=== PATIENT | female | born 1945 | race Caucasian/White ===

== ENCOUNTER → 2018-03-03 09:53 | Outpatient (CLI) | payer MEDICARE, SELFPAY ==
--- NOTE | 2018-03-03 | DI.RAD.S_ITS ---
PROCEDURE: XR CHEST 2V INDICATIONS: ASTHMA TECHNIQUE: 2 views of the chest were acquired. COMPARISON: [facility], , CHEST 2 VIEW, 09/14/2017, 10:44. FINDINGS: Surgical changes and devices: Surgical clips upper abdomen. Lungs and pleura: No pleural effusions or pneumothorax. Lungs are clear. Mediastinum: Mediastinal contours are normal. Heart size is normal. Aortic calcifications. Bones and chest wall: No suspicious bony abnormalities. Soft tissues appear unremarkable. IMPRESSION: No acute cardiopulmonary abnormality Dictated by: Ravinder Wright M.D. on 03/03/2018 at 10:45 Approved by: Ravinder Wright M.D. on 03/03/2018 at 10:46
== END ==
PROVIDERS: Family Provider Family Medicine; PCP Family Medicine; Visit Provider Family Medicine
DX: J45.909 Unspecified asthma, uncomplicated (principal)
CPT/HCPCS: 71046

== ENCOUNTER → 2019-03-12 10:07 | Outpatient (CLI) | payer MEDICARE, OTHER, SELFPAY ==
--- NOTE | 2019-03-12 | DI.RAD.S_ITS ---
PROCEDURE: XR LUMBAR SPINE 2-3V INDICATIONS: back pain hip pain TECHNIQUE: 2 views of the lumbar spine were acquired. COMPARISON: [facility], CR, L-SPINE 2-3 VIEWS, 09/15/2015, 10:10. [facility], CR, L-SPINE 2-3 VIEWS, 12/02/2009, 11:20. FINDINGS: Bones: 5 [id number] vertebrae are present. There is normal bony alignment except for mild grade 1 anterolisthesis of L5 on S1 associated with bilateral facet osteoarthritis at L5-S1 that is moderate in severity and mild at L4-L5. No vertebral body compression fractures. No suspicious bony lesions. Soft tissues: Overlying bowel gas pattern is normal. No suspicious soft tissue calcifications. IMPRESSION: The degenerative disc disease and facet osteoarthritis present over the lower lumbosacral spine is equivalent to that seen in August of 2015. A definite source of new pain is not identified. Spinal and foraminal stenosis likely is present at L4-5 and especially L5-S1. Dictated by: Malachi Hair M.D. on 03/12/2019 at 10:57 Approved by: Malachi Hair M.D. on 03/12/2019 at 10:59
--- NOTE | 2019-03-12 | DI.RAD.S_ITS ---
PROCEDURE: XR HIP W PEL IF DONE LT 2V INDICATIONS: back pain l hip pain TECHNIQUE: AP pelvis with lateral view(s) of the left hip(s). COMPARISON: [facility], , HIP 2V LEFT, 09/15/2015, 10:09. [facility], , HIP 2V RIGHT, 11/18/2011, 10:39. FINDINGS: Bones: No fractures or dislocations. There is moderately severe to severe degenerative hip joint osteoarthritis present bilaterally, slightly greater on the left than the right. This has been previously present in late August of 2015. Pelvic ring appears intact. No suspicious bony lesions. Soft tissues: The visualized bowel gas pattern is normal. No suspicious soft tissue calcifications. IMPRESSION: No trauma found. The prominent hip joint osteoarthritis present bilaterally has not appreciably worsened from late August of 2015. Dictated by: Mlaachi Hair M.D. on 03/12/2019 at 11:00 Approved by: Malachi Hair M.D. on 03/12/2019 at 11:01
== END ==
PROVIDERS: Family Provider Family Medicine; PCP Family Medicine; Visit Provider Family Medicine
DX: M54.5 Low back pain (principal); M25.551 Pain in right hip; M51.17 Intervertebral disc disorders with radiculopathy, lumbosacral region; M47.27 Other spondylosis with radiculopathy, lumbosacral region; M16.0 Bilateral primary osteoarthritis of hip
CPT/HCPCS: 72100; 73502

== ENCOUNTER 2019-07-11 12:58 | Observation (INO) | payer MEDICARE, OTHER, SELFPAY ==
[2019-07-11] VITALS (8 sets, daily range): BP systolic 152–186; BP diastolic 76–94; PULSE 80–100; RESP 16–26; TEMP 36.6–37; O2SAT 98–100; BMI 24.8
--- NOTE | 2019-07-11 13:19 | DI.RAD.S_ITS ---
PROCEDURE: XR CHEST 2V INDICATIONS: chest pain, dyspnea TECHNIQUE: 2 views of the chest were acquired. COMPARISON: [facility], CR, XR CHEST 2V, 03/03/2018, 10:00. FINDINGS: Surgical changes and devices: Surgical clips are noted in epigastric region.. Lungs and pleura: Lungs are clear. No pleural effusions or pneumothorax. Mediastinum: Mediastinal contours are normal. Heart size is mildly enlarged. Bones and chest wall: No suspicious bony abnormalities. Soft tissues appear unremarkable. IMPRESSION: No acute cardiopulmonary pathology. Dictated by: Zeyad Garcia M.D. on 07/11/2019 at 14:01 Approved by: Zeyad Garcia M.D. on 07/11/2019 at 14:04
[2019-07-11 13:42] LABS: Add Manual Diff / Slide Review NO; Basophils Absolute Auto 100 /uL (0-100); Basophils Percent Auto 1.1 % (0-2); Eosinophils Absolute Auto 100 /uL (0-450); Eosinophils Percent Auto 0.6 % (2-4); Hematocrit 41.4 % (36-46); Hemoglobin 14.3 g/dL (12.0-16.0); Lymphocytes Absolute Auto 3600 /uL (1100-4500); Lymphocytes Percent Auto 36.5 % (25-40); Mean Corpuscular HGB Conc 34.5 % (30-36); Mean Corpuscular Volume 98.7 fL (80-100); Monocytes Absolute Auto 900 /uL (0-900); Monocytes Percent Auto 8.7 % (3-14); Neutrophils Absolute Auto 5300 /uL (1500-7000); Neutrophils Percent Auto 53.1 % (50-75); Platelet Count 290 X10^3/uL (150-400); Red Cell Distribution Width 12.7 % (11.6-14.8); White Blood Cell Count 9.9 X10^3/uL (4.5-11.0)
[2019-07-11 13:51] LABS: PTT Partial Thromboplastin Tim 34 SECONDS (26.4-36.2)
[2019-07-11 13:52] LABS: D Dimer 315 ng/mL (<230)
[2019-07-11 13:53] LABS: Alanine Aminotransferase 23 IU/L (9-52); Albumin 4.2 g/dL (3.5-5.0); Albumin Globulin Ratio 1.5 (1.0-2.8); Alkaline Phosphatase 55 U/L (38-126); Aspartate Aminotransferase 21 IU/L (14-36); BUN Creatinine Ratio 23.3 (6-22); Bilirubin Total 0.6 mg/dL (0.2-1.3); Blood Urea Nitrogen 14 mg/dL (7-17); Calcium 9.5 mg/dL (8.4-10.2); Carbon Dioxide 22 mmol/L (22-32); Chloride 108 mmol/L (98-107); Creatine Kinase 44 U/L (30-135); Estimated Glomerular Filt Rate > 60.0 mL/min (>60); Globulin 2.8 g/dL (1.7-4.1); Glucose 122 mg/dL (80-110); HEMOLYSIS < 15 (0-50); Lipase 34 U/L (23-300); Potassium 3.6 mmol/L (3.4-5.1); Sodium 141 mmol/L (137-145)
[2019-07-11 14:01] LABS: B Type Natriuretic Peptide < 100 (<100)
[2019-07-11 14:05] LABS: Troponin I < 0.012 ng/mL (0.01-0.034)
[2019-07-11] MEDS: ALBUTEROL/IPRATROPIUM 3 ML AMPUL INH (14:49)
--- NOTE | 2019-07-11 15:08 | ED.CHESTPAIN ---
HPI - Chest Pain <SUMANTH Howell - Last Filed: 07/12/19 00:37> General Chief Complaint: Chest Pain Stated Complaint: Chest Pain Time Seen by Provider: 07/11/19 12:59 Source: patient and EMS Mode of arrival: EMS Limitations: no limitations History of Present Illness HPI narrative: This is a 74-year-old female, nonsmoker, presents to ED with EMS from patient's PCP, Dr. Coats's office. Patient has been having exertion or short of breath for a month or so and this morning when she woke up she had midsternal chest pressure which lasted for 15 minutes and rated 5/10 at that time. She has history of insulin-dependent diabetes, hyperlipidemia, hypertension and he hiatal hernia. Patient's mother had cardiac stent at age in 60s. Patient is waiting to be evaluated by boat driver for ongoing short of breath and asthma diagnosed since summer. Patient denies on hormone replacement, long travel, history of blood clots, calf pain or swelling. Patient reports discomfort from her he hiatal hernia felt different from today's chest discomfort. EKG was taken at Dr. Coats's office and EKG changes was noticed by PCP. Patient was referred to ED for further evaluation. Upon patient's arrival, patient reports chest pain had resolved. Patient reports she has been able to walking a short distance due to increasing short of breath recently. She is not currently on blood thinner. She is unable to tolerate albuterol due to cough per allergy list. Related Data Home Medications Medication Instructions Recorded Confirmed Novolin N NPH U-100 Insulin 0 unit SQ BID #0 07/21/17 07/11/19 Jamia Original 1 tab PO PRN PRN 07/11/19 07/11/19 Carmelo Plus Extra Strength 500 mg PO PRN PRN 07/11/19 07/11/19 Biocitrate Potassium 1 dose PO DAILY 07/11/19 07/11/19 Blood Sugar Balance 1 dose PO DIRECTED 07/11/19 07/11/19 Coricidin HBP Cold and Flu 1 tab PO DIRECTED 07/11/19 07/11/19 Excedrin Migraine 1 tab PO PRN PRN 07/11/19 07/11/19 Hyaluronic Acid (chond-collgn) 1 cap PO BID 07/11/19 07/11/19 Lutein Plus Bilberry 2 cap PO DAILY 07/11/19 07/11/19 [place]'s wort 150 mg PO PRN PRN 07/11/19 07/11/19 Tart Peterson Advanced 1 tab PO PRN PRN 07/11/19 07/11/19 acetaminophen 500 mg PO DAILY PRN 07/11/19 07/11/19 acetaminophen [Tylenol 8 Hour] 650 mg PO DIRECTED 07/11/19 07/11/19 alpha lipoic acid 400 mg PO DAILY 07/11/19 07/11/19 black cohosh 80 mg PO DAILY 07/11/19 07/11/19 cholecalciferol (vitamin D3) 2,000 unit PO DAILY 07/11/19 07/11/19 [Vitamin D3] clotrimazole 1 applic TOPICAL BID 07/11/19 07/11/19 diphenhydramine HCl [Benadryl] 25 mg PO PRN PRN 07/11/19 07/11/19 fexofenadine 180 mg PO DAILY PRN 07/11/19 07/11/19 fluticasone propionate 1 spray INTRANASAL DAILY PRN 07/11/19 07/11/19 garlic 1,000 mg PO DAILY 07/11/19 07/11/19 priti (Zingiber officinalis) 550 mg PO DAILY 07/11/19 07/11/19 hydrocodone-acetaminophen 1 tab PO Q4-6H PRN 07/11/19 07/11/19 magnesium oxide 400 mg PO DAILY 07/11/19 07/11/19 multivitamin with minerals 1 tab PO BID 07/11/19 07/11/19 [Hair,Skin and Nails] Allergies Allergy/AdvReac Type Severity Reaction Status Date / Time Sulfa (Sulfonamide Allergy Intermediate Rash Verified 07/11/19 14:37 Antibiotics) tamsulosin Allergy Intermediate Swelling Verified 07/11/19 14:37 of the Eye cetirizine [From ZYRTEC] Allergy Unknown Verified 07/11/19 13:09 Estrogens [ESTROGENS] Allergy Unknown Verified 07/11/19 13:09 ezetimibe [From ZETIA] Allergy Unknown Verified 07/11/19 13:09 Progestins [PROGESTINS] Allergy Unknown Verified 07/11/19 13:09 ranitidine [From ZANTAC] Allergy Unknown Verified 07/11/19 13:09 rosiglitazone [From AVANDIA] Allergy Unknown Verified 07/11/19 13:09 simvastatin [From ZOCOR] Allergy Unknown Verified 07/11/19 13:09 albuterol AdvReac Intermediate Anxiety Verified 07/11/19 14:37 meloxicam [From Mobic] AdvReac Intermediate Dizziness Verified 07/11/19 14:37 TRIPLIPIX Allergy Unknown Uncoded 07/11/19 13:09 Review of Systems <SUMANTH Howell - Last Filed: 07/12/19 00:37> Review of Systems Narrative: General: Denies fever, chills, fatigue, malaise, sweats. HEENT: Denies sinus pain, ear pain, sore throat, difficulty swallowing, dizziness. Respiratory: See HPI Cardiovascular: See HPI Gastrointestinal: Denies nausea, vomiting, abdominal pain, diarrhea, constipation, melena. : Denies dysuria, frequency, incontinence, hematuria, urinary retention. Musculoskeletal: Denies weakness, joint pain or bony pain. Skin: Denies rash, skin lesions, or other. Neurologic: Denies weakness, headache, numbness, change in speech, confusion, seizures, incoordination. Psychiatric: No concerning psychosocial issues. 12-point review of systems is negative except for those stated above. Patient History <SUMANTH Howell - Last Filed: 07/12/19 00:37> Medical History (Updated 07/12/19 @ 08:53 by SUMANTH Barry) Allergic rhinitis (Chronic) Anxiety and depression (Chronic) Essential hypertension (Chronic) Gastric ulcer (Chronic) Hiatal hernia (Acute) Hyperlipidemia (Acute) IBS (irritable bowel syndrome) (Chronic) Insulin dependent diabetes mellitus (Chronic) Peripheral vascular disease (Chronic) Sciatica (Chronic) Surgical History History of carpal tunnel surgery (Acute) S/P colonoscopic polypectomy (Acute) Family History Mother Diabetes mellitus Myocardial infarct Renal failure Father Diabetes mellitus Parkinson disease Social History (Updated 07/11/19 @ 16:10 by SUMANTH Howell) household members: spouse Smoking Status: Never smoker alcohol intake: never alcohol intake frequency: 0-2 drinks per day Substance Use Type: does not use Exam <Carlos SUMANTH Elizabeth - Last Filed: 07/12/19 00:37> Narrative Exam Narrative: GEN: Alert, oriented x 3, well appearing and nourished, and in no acute distress. Head: Normal cephalic, atraumatic. No scalp or temporal tenderness, palpable mass or rash. EYES: Pupils are equal, round, and reactive to light and accommodation. Extraocular muscles are intact bilaterally. Subconjunctival hemorrhage R lateral eye, No exudate and sclera non-icteric. ENT: Bilateral auditory canals and tympanic membranes clear. Hearing grossly intact. Nose without bleeding, purulent discharge or deviation. Facial sinuses nontender to palpate. Mucous membrane moist, no mucosal lesion. Throat without erythema, tonsillar hypertrophy or exudate. Uvula in midline, airway patent. Neck: Trachea in midline. No JVD, non-tender without lymphadenopathy. No masses or thyroid megaly. Supple, non-tender and no meningeal signs. CARDIAC: Normal regular rate and rhythm without murmurs, gallops, or rubs. No chest wall tenderness. No peripheral edema, cyanosis or pallor. Capillary refill is less than 2 seconds. RESPIRATORY: Lungs are clear but expiratory breath decreased to auscultate bilaterally. No cough, wheezes, rales, or rhonchi. No stridor, respiratory distress, increase work of breathing, or accessary muscle used. Able to speak sentences without difficulty. ABD: Abdomen soft, nontender and non-distended. No guarding or rebound tenderness to palpate. Bowel sounds are normal in all 4 quadrants. There is no palpable masses or organomegaly. EXT: Full painless ROM of all extremities with no loss of sensation, strength, effusion or edema. SKIN: Warm, dry, normal color for patient. No erythema, lesions or rash over visible areas. BACK: Nontender without deformity or crepitance. No flank tenderness. NEUROLOGICAL: Alert and oriented to place, time and person. Sensation and motor function intact bilaterally. No facial droops, dysphasia. PSYCHIATRIC: Good judgement and reason, without hallucinations, abnormal affect or abnormal behaviors during the examination. Initial Vital Signs Initial Vital Signs: Vital Signs Temperature 98 F 07/11/19 12:55 Pulse Rate 81 07/11/19 12:55 Respiratory Rate 26 H 07/11/19 12:55 Blood Pressure 152/76 H 07/11/19 12:55 Pulse Oximetry 100 07/11/19 12:55 <Alex Perez DO - Last Filed: 07/14/19 18:21> Initial Vital Signs Initial Vital Signs: Vital Signs Temperature 98 F 07/11/19 12:55 Pulse Rate 81 07/11/19 12:55 Respiratory Rate 26 H 07/11/19 12:55 Blood Pressure 152/76 H 07/11/19 12:55 Pulse Oximetry 100 07/11/19 12:55 Scores <Carlos MullerSUMANTH jeffrey - Last Filed: 07/12/19 00:37> GCS [place] coma scale eye opening: Spontaneous Silvia coma scale verbal response: Orientated [place] coma scale motor response: Obey commands [place] coma scale total score: 15 HEART Score Heart Score history: Slightly Suspicious Heart Score EKG: Non-Specific repolarization disturbance Heart Score Age: > or = 65 years old Heart Score risk factors: > 3 risk factors or hx of atherosclerotic disease Heart Score troponin: < or = to normal limit Heart Score Total: 5 Course <Carlos AroraangSiriSUMANTH Alexis - Last Filed: 07/12/19 00:37> Orders Ordered: Discontinued Medications Acetaminophen (Tylenol) 650 mg PO Q6HR PRN PRN Reason: Headache Albuterol/Ipratropium (Duoneb) 3 ml INH NOW ONE Stop: 07/11/19 13:20 Last Admin: 07/11/19 14:49 Dose: 3 ml Documented by: SONNY Albuterol/Ipratropium (Duoneb) 3 ml INH RTQ6HR PRN PRN Reason: Shortness Of Breath Aspirin (Aspirin Chew) 324 mg PO NOW ONE Stop: 07/11/19 16:07 Last Admin: 07/11/19 16:37 Dose: 324 mg Documented by: LAITH Aspirin (Aspirin Chew) 81 mg PO DAILY KITA Last Admin: 07/12/19 09:36 Dose: 81 mg Documented by: PAULY Nitroglycerin (Nitrostat) 0.4 mg SL [id number] PRN PRN Reason: Chest Pain Last Admin: 07/12/19 01:36 Dose: 0.4 mg Documented by: YORDYTLIN Ondansetron HCl (Zofran) 4 mg IV Q8HR PRN PRN Reason: Nausea And Vomiting Pantoprazole Sodium (Protonix) 40 mg IV NOW ONE Stop: 07/12/19 01:08 Last Admin: 07/12/19 01:35 Dose: 40 mg Documented by: BRYCE Reevaluation(s) Reevaluation #1: recurring 09/28 chest pressure Time: 14:40 Reevaluation #2: Difficulty tolerating neb tx Time: 15:09 Consultations Consultation #1: Dr. Jackson-umang, stress test Time: 15:15 Vital Signs Vital signs: Vital Signs - 8 hr 07/11/19 12:55 07/11/19 13:30 07/11/19 14:51 Temperature 98 F Pulse Rate 81 80 85 Respiratory Rate 26 H 23 16 Blood Pressure 152/76 H Blood Pressure [Right Arm] 152/76 H Pulse Oximetry 100 100 100 <Alex Perez, - Last Filed: 07/14/19 18:21> Orders Ordered: Discontinued Medications Acetaminophen (Tylenol) 650 mg PO Q6HR PRN PRN Reason: Headache Albuterol/Ipratropium (Duoneb) 3 ml INH NOW ONE Stop: 07/11/19 13:20 Last Admin: 07/11/19 14:49 Dose: 3 ml Documented by: SONNY Albuterol/Ipratropium (Duoneb) 3 ml INH RTQ6HR PRN PRN Reason: Shortness Of Breath Aspirin (Aspirin Chew) 324 mg PO NOW ONE Stop: 07/11/19 16:07 Last Admin: 07/11/19 16:37 Dose: 324 mg Documented by: LAITH Aspirin (Aspirin Chew) 81 mg PO DAILY KITA Last Admin: 07/12/19 09:36 Dose: 81 mg Documented by: PAULY Nitroglycerin (Nitrostat) 0.4 mg SL [id number] PRN PRN Reason: Chest Pain Last Admin: 07/12/19 01:36 Dose: 0.4 mg Documented by: BRYCE Ondansetron HCl (Zofran) 4 mg IV Q8HR PRN PRN Reason: Nausea And Vomiting Pantoprazole Sodium (Protonix) 40 mg IV NOW ONE Stop: 07/12/19 01:08 Last Admin: 07/12/19 01:35 Dose: 40 mg Documented by: RCATLIN Vital Signs Vital signs: Vital Signs - 8 hr 07/11/19 12:55 07/11/19 13:30 07/11/19 14:51 Temperature 98 F Pulse Rate 81 80 85 Respiratory Rate 26 H 23 16 Blood Pressure 152/76 H Blood Pressure [Right Arm] 152/76 H Pulse Oximetry 100 100 100 MDM - Chest Pain <Carlos DEEPAK ElizabethP - Last Filed: 07/12/19 00:37> Differential Diagnosis Differential diagnosis: Likely unstable angina pectoris, atypical chest pain and other (Pulmonary late embolism) Medical Records Data Attestation: I reviewed the patient's medical records. Lab Data Attestation: I reviewed the patient's lab results. Result diagrams: 07/11/19 13:35 07/11/19 13:35 Labs: Lab Results 07/11/19 07/11/19 07/11/19 Range/Units 13:35 13:35 13:35 WBC 9.9 (4.5-11.0) X10^3/uL RBC 4.20 (4.0-5.2) X10^6/uL Hgb 14.3 (12.0-16.0) g/dL Hct 41.4 (36-46) % MCV 98.7 (80-100) fL MCH 34.0 (26-34) PG MCHC 34.5 (30-36) % RDW 12.7 (11.6-14.8) % Plt Count 290 (150-400) X10^3/uL Neut % (Auto) 53.1 (50-75) % Lymph % (Auto) 36.5 (25-40) % [place] % (Auto) 8.7 (3-14) % Eos % (Auto) 0.6 L (2-4) % Baso % (Auto) 1.1 (0-2) % Neut # (Auto) 5300 (8148-2331) /uL Lymph # (Auto) 3600 (4755-4322) /uL [place] # (Auto) 900 (0-900) /uL Eos # (Auto) 100 (0-450) /uL Baso # (Auto) 100 (0-100) /uL PT 11.0 (10.1-12.7) SECONDS INR 1.0 (0.9-1.3) APTT 34 (26.4-36.2) SECONDS D-Dimer 315 H (<230) ng/mL Sodium 141 (137-145) mmol/L Potassium 3.6 (3.4-5.1) mmol/L Chloride 108 H (98-107) mmol/L Carbon Dioxide 22 (22-32) mmol/L BUN 14 (7-17) mg/dL Creatinine 0.60 (0.52-1.04) mg/dL Estimated GFR > 60.0 (>60) mL/min BUN/Creatinine Ratio 23.3 H (6-22) Glucose 122 H (80-110) mg/dL Hemoglobin A1c (4.0-6.0) % Calcium 9.5 (8.4-10.2) mg/dL Magnesium (1.6-2.3) mg/dL Total Bilirubin 0.6 (0.2-1.3) mg/dL AST 21 (14-36) IU/L ALT 23 (9-52) IU/L Alkaline Phosphatase 55 (38-126) U/L Total Creatine Kinase 44 (30-135) U/L CK-MB (CK-2) TNP CK-MB (CK-2) Rel Index TNP Troponin I < 0.012 (0.01-0.034) ng/mL B-Natriuretic Peptide < 100 (<100) Total Protein 7.0 (6.3-8.2) g/dL Albumin 4.2 (3.5-5.0) g/dL Globulin 2.8 (1.7-4.1) g/dL Albumin/Globulin Ratio 1.5 (1.0-2.8) Lipase 34 (23-300) U/L TSH (0.47-4.68) uIU/mL 07/11/19 07/11/19 07/11/19 Range/Units 13:35 13:35 13:35 WBC (4.5-11.0) X10^3/uL RBC (4.0-5.2) X10^6/uL Hgb (12.0-16.0) g/dL Hct (36-46) % MCV (80-100) fL MCH (26-34) PG MCHC (30-36) % RDW (11.6-14.8) % Plt Count (150-400) X10^3/uL Neut % (Auto) (50-75) % Lymph % (Auto) (25-40) % [place] % (Auto) (3-14) % Eos % (Auto) (2-4) % Baso % (Auto) (0-2) % Neut # (Auto) (6101-4258) /uL Lymph # (Auto) (6731-5230) /uL [place] # (Auto) (0-900) /uL Eos # (Auto) (0-450) /uL Baso # (Auto) (0-100) /uL PT (10.1-12.7) SECONDS INR (0.9-1.3) APTT (26.4-36.2) SECONDS D-Dimer (<230) ng/mL Sodium (137-145) mmol/L Potassium (3.4-5.1) mmol/L Chloride (98-107) mmol/L Carbon Dioxide (22-32) mmol/L BUN (7-17) mg/dL Creatinine (0.52-1.04) mg/dL Estimated GFR (>60) mL/min BUN/Creatinine Ratio (6-22) Glucose (80-110) mg/dL Hemoglobin A1c 7.6 H (4.0-6.0) % Calcium (8.4-10.2) mg/dL Magnesium 1.7 (1.6-2.3) mg/dL Total Bilirubin (0.2-1.3) mg/dL AST (14-36) IU/L ALT (9-52) IU/L Alkaline Phosphatase (38-126) U/L Total Creatine Kinase (30-135) U/L CK-MB (CK-2) CK-MB (CK-2) Rel Index Troponin I (0.01-0.034) ng/mL B-Natriuretic Peptide (<100) Total Protein (6.3-8.2) g/dL Albumin (3.5-5.0) g/dL Globulin (1.7-4.1) g/dL Albumin/Globulin Ratio (1.0-2.8) Lipase (23-300) U/L TSH 1.23 (0.47-4.68) uIU/mL Imaging Data Chest x-ray: Radiologist's impression: [address] [address] XRay Report Signed Patient: Brittnee Villa [facility]#: [id number] : 7Acct:[id number] Age/Sex: 74 / FDate of Service: 07/11/19 Loc: ED Accession Number: [id number] Procedure: XR chest 2V Ordering Provider: Carlos Elizabeth PROCEDURE: XR CHEST 2V INDICATIONS: chest pain, dyspnea TECHNIQUE: 2 views of the chest were acquired. COMPARISON: [facility], , XR CHEST 2V, 03/03/2018, 10:00. FINDINGS: Surgical changes and devices: Surgical clips are noted in epigastric region.. Lungs and pleura: Lungs are clear. No pleural effusions or pneumothorax. Mediastinum: Mediastinal contours are normal. Heart size is mildly enlarged. Bones and chest wall: No suspicious bony abnormalities. Soft tissues appear unremarkable. IMPRESSION: No acute cardiopulmonary pathology. Dictated by: Zeyad Garcia M.D. on 07/11/2019 at 14:01 Approved by: Zeyad Garcia M.D. on 07/11/2019 at 14:04 ECG Data Attestation: I personally reviewed and interpreted this ECG as follows: Prior ECG tracings: available for review Interpretation: SR at 78 Nonspecific T wave abnormalty, No changes from previous EKG L axis. No ST elevation or depression MDM Narrative Medical decision making narrative: This is a 74-year-old female presents to ED from her primary care physician's, Dr. Coats's office with chest pressure and exertional short of breath evaluation. Patient had 15 minutes duration of midsternal pressure when she woke up this morning and has been having exertional short of breath for last 4 weeks or so. Patient is in process of getting an evaluation by boat driver for this. Patient has a history of insulin dependent diabetes, hyperlipidemia not on statin. Patient was diagnosed with asthma this past summer but is not currently on albuterol nebulizer or inhaler due to patient's sensitive reaction to the medication. According to Dr. Coats he noticed changes in EKG. EKG in ED showed sinus rhythm with nonspecific T-wave abnormalty which was no change from the previous EKG. Chest x-ray was without acute findings. Cardiac enzymes were not normal. Given patient's history, D-dimer was obtained and showed 315 today (<230). Given patient's age, the D-dimer was not considered as abnormal/elevated and no further imaging test was done this time. BNP was <100. The physics professor, Dr. Jackson was consulted over the phone. He suggested echocardiogram and stress test as an inpatient given patient's history of diabetes, hyperlipidemia, mother's cardiac history in 60's. Attempted nebulizer treatment with DuoNeb but patient was not able to tolerated due to feeling anxious. Dr. Seals was consulted and he kindly accepted patient's care as an observation admission with plan of echocardiogram and stress test with trending troponin test. Findings and treatment plan were discussed with the patient and verbalized understanding and agrees with treatment plan. <Alex Perez, DO - Last Filed: 07/14/19 18:21> Lab Data Labs: Lab Results 07/11/19 07/11/19 07/11/19 Range/Units 13:35 13:35 13:35 WBC 9.9 (4.5-11.0) X10^3/uL RBC 4.20 (4.0-5.2) X10^6/uL Hgb 14.3 (12.0-16.0) g/dL Hct 41.4 (36-46) % MCV 98.7 (80-100) fL MCH 34.0 (26-34) PG MCHC 34.5 (30-36) % RDW 12.7 (11.6-14.8) % Plt Count 290 (150-400) X10^3/uL Neut % (Auto) 53.1 (50-75) % Lymph % (Auto) 36.5 (25-40) % [place] % (Auto) 8.7 (3-14) % Eos % (Auto) 0.6 L (2-4) % Baso % (Auto) 1.1 (0-2) % Neut # (Auto) 5300 (2605-6692) /uL Lymph # (Auto) 3600 (2907-8868) /uL [place] # (Auto) 900 (0-900) /uL Eos # (Auto) 100 (0-450) /uL Baso # (Auto) 100 (0-100) /uL PT 11.0 (10.1-12.7) SECONDS INR 1.0 (0.9-1.3) APTT 34 (26.4-36.2) SECONDS D-Dimer 315 H (<230) ng/mL Sodium 141 (137-145) mmol/L Potassium 3.6 (3.4-5.1) mmol/L Chloride 108 H (98-107) mmol/L Carbon Dioxide 22 (22-32) mmol/L BUN 14 (7-17) mg/dL Creatinine 0.60 (0.52-1.04) mg/dL Estimated GFR > 60.0 (>60) mL/min BUN/Creatinine Ratio 23.3 H (6-22) Glucose 122 H (80-110) mg/dL Hemoglobin A1c (4.0-6.0) % Calcium 9.5 (8.4-10.2) mg/dL Magnesium (1.6-2.3) mg/dL Total Bilirubin 0.6 (0.2-1.3) mg/dL AST 21 (14-36) IU/L ALT 23 (9-52) IU/L Alkaline Phosphatase 55 (38-126) U/L Total Creatine Kinase 44 (30-135) U/L CK-MB (CK-2) TNP CK-MB (CK-2) Rel Index TNP Troponin I < 0.012 (0.01-0.034) ng/mL B-Natriuretic Peptide < 100 (<100) Total Protein 7.0 (6.3-8.2) g/dL Albumin 4.2 (3.5-5.0) g/dL Globulin 2.8 (1.7-4.1) g/dL Albumin/Globulin Ratio 1.5 (1.0-2.8) Lipase 34 (23-300) U/L TSH (0.47-4.68) uIU/mL 07/11/19 07/11/19 07/11/19 Range/Units 13:35 13:35 13:35 WBC (4.5-11.0) X10^3/uL RBC (4.0-5.2) X10^6/uL Hgb (12.0-16.0) g/dL Hct (36-46) % MCV (80-100) fL MCH (26-34) PG MCHC (30-36) % RDW (11.6-14.8) % Plt Count (150-400) X10^3/uL Neut % (Auto) (50-75) % Lymph % (Auto) (25-40) % [place] % (Auto) (3-14) % Eos % (Auto) (2-4) % Baso % (Auto) (0-2) % Neut # (Auto) (5202-5929) /uL Lymph # (Auto) (5517-4039) /uL [place] # (Auto) (0-900) /uL Eos # (Auto) (0-450) /uL Baso # (Auto) (0-100) /uL PT (10.1-12.7) SECONDS INR (0.9-1.3) APTT (26.4-36.2) SECONDS D-Dimer (<230) ng/mL Sodium (137-145) mmol/L Potassium (3.4-5.1) mmol/L Chloride (98-107) mmol/L Carbon Dioxide (22-32) mmol/L BUN (7-17) mg/dL Creatinine (0.52-1.04) mg/dL Estimated GFR (>60) mL/min BUN/Creatinine Ratio (6-22) Glucose (80-110) mg/dL Hemoglobin A1c 7.6 H (4.0-6.0) % Calcium (8.4-10.2) mg/dL Magnesium 1.7 (1.6-2.3) mg/dL Total Bilirubin (0.2-1.3) mg/dL AST (14-36) IU/L ALT (9-52) IU/L Alkaline Phosphatase (38-126) U/L Total Creatine Kinase (30-135) U/L CK-MB (CK-2) CK-MB (CK-2) Rel Index Troponin I (0.01-0.034) ng/mL B-Natriuretic Peptide (<100) Total Protein (6.3-8.2) g/dL Albumin (3.5-5.0) g/dL Globulin (1.7-4.1) g/dL Albumin/Globulin Ratio (1.0-2.8) Lipase (23-300) U/L TSH 1.23 (0.47-4.68) uIU/mL Discharge Plan Departure Patient Disposition: Admitted as Observation Clinical Impression: Breath, shortness Chest pain Qualifiers: Chest pain type: unspecified Qualified Code(s): R07.9 - Chest pain, unspecified Discharge Date/Time: 07/11/19 17:06 Referrals: Lion Coats MD [Primary Care Provider] - Admit Date/Time: 07/11/19 15:44 Admit Provider: [facility]
[2019-07-11] MEDS: ASPIRIN 81 MG CHEW TAB 324 MG PO (16:37)
--- NOTE | 2019-07-11 20:48 | P.HP_ITS ---
History of Present Illness History of Present Illness Date Patient Seen: 07/11/19 Time Patient Seen: 20:48 Chief complaint: Chest Pain Narrative: The patient is a 74-year-old female With PMH of HTN, IDDM, HDL, PVD, hiatal hernia, IBS-C, chronic pain (OA, mid and upper back pain, sciatica), allergic rhinitis, and anxiety/depression. Patient presented to the ED on 07/11/2019 directly from her PCPs office (Dr. Coats) for further evaluation of chest pain. Patient went to see her PCP out of concern for 1 month long history shortness of breath. Shortness of breath is present with exertion only. Patient states she can only take 2-3 steps before she has to rest. Associated symptoms include mid-sternal chest pressure. Chest pressure resolves with rest. There is no radiation to the back, extremities, neck or jaw. Chest discomfort is not associated with headache, diaphoresis, dizziness, lightheadedness, syncopal events, hemoptysis, abdominal pain, nausea or vomiting. Patient denies wheezing. Denies orthopnea, peripheral edema, PND, and claudication. Patient states that she was recently diagnosed with asthma, however denies having any pulmonary function tests or imaging done. Home medication regimen does not include bronchodilators. Reports presence of allergic rhinitis. Overall patient is allergic to number of medications. There is also concern for polypharmacy. She is taking a number of OTC medications and supplements. She does admit that she does not discussed these with her PCP. Reports prior history of GI ulcers, GERD, and polypectomy. No prior history of a GI bleed. Denies history of hypertension. She does have dyslipidemia, history shows intolerance to Zetia and Zocor. Patient unable to recall reaction. Reports underlying anxiety and depression, however admits those to be controlled at this time. Denies prior history of a stress test. She has had an echocardiogram number of years ago, however unable to recall associated findings. Denies current or prior history of tobacco use. Reports baseline gait instability and trouble with balance. Reports baseline left lower extremity weakness associated with injury over 20 years ago. Denies prior history of an NM, cerebrovascular events, and thrombosis. ED Presentation & Work-Up Labs, 07/11 @ 1335 WBC 9.9 HGB 14.3 HCT 41.4 PLT 290 PT 11 INR 1.0 aPTT 34 D-Dimer 315 Troponin < 0.012 BNP < 100 Na 141 K 3.6 Cl 108 Ca 9.5 Alb 4.2 CO2 22 Cr 0.6 BUN 14 Cr 0.6 GFR > 60 T.Bili 0.6 AST 21 ALT 23 ALK PHOS 55 CK (total) 44 Lipase 34 EKG, 07/11/19 @ 1310. SR (v-rate 78). Minimal voltage criteria for LVH, consider normal variant. Nonspecific T-wave abnormality. QTc 414. CXR, 07/11/19. No acute cardiopulmonary pathology. Lungs are clear. No pleural effusion or pneumothorax. Mediastinal contours are normal. Heart size is mildly enlarged. No suspicious bony abnormalities. Soft tissues appear unremarkable. Surgical clips noted in epigastric region. Patient History Medical History (Updated 07/12/19 @ 08:53 by SUMANTH Barry) Allergic rhinitis (Chronic) Anxiety and depression (Chronic) Essential hypertension (Chronic) Gastric ulcer (Chronic) Hiatal hernia (Acute) Hyperlipidemia (Acute) IBS (irritable bowel syndrome) (Chronic) Insulin dependent diabetes mellitus (Chronic) Peripheral vascular disease (Chronic) Sciatica (Chronic) Surgical History History of carpal tunnel surgery (Acute) S/P colonoscopic polypectomy (Acute) Family & Social History Family History Mother Diabetes mellitus Myocardial infarct Renal failure Father Diabetes mellitus Parkinson disease Social History: household members spouse Prior Living Arrangements House Safety & Behavioral: Feels Safe in Current Yes Environment Been Physically Hurt or No Threatened By a Person Suicidal Ideation Description None Suicide Plan Description No Plan Tobacco & Substance use: Smoking Status Never smoker alcohol intake never alcohol intake frequency 0-2 drinks per day Substance Use Type does not use Meds Home Medications and Allergies Home Medications Medication Instructions Recorded Confirmed Type Novolin N NPH U-100 Insulin 0 unit SQ BID #0 07/21/17 07/11/19 History Carmelo Plus Extra Strength 500 mg PO PRN PRN 07/11/19 07/11/19 History Biocitrate Potassium 1 dose PO DAILY 07/11/19 07/11/19 History Blood Sugar Balance 1 dose PO DIRECTED 07/11/19 07/11/19 History Lutein Plus Bilberry 2 cap PO DAILY 07/11/19 07/11/19 History Camargo's wort 150 mg PO PRN PRN 07/11/19 07/11/19 History Tart Peterson Advanced 1 tab PO PRN PRN 07/11/19 07/11/19 History acetaminophen 500 mg PO DAILY PRN 07/11/19 07/11/19 History acetaminophen [Tylenol 8 Hour] 650 mg PO DIRECTED 07/11/19 07/11/19 History alpha lipoic acid 400 mg PO DAILY 07/11/19 07/11/19 History rnjluuw-gbvrcfnjpcvqo-rjkgcrpj 1 tab PO PRN PRN 07/11/19 07/11/19 History [Excedrin Migraine] aspirin-sod bicarb-citric acid 1 tab PO PRN PRN 07/11/19 07/11/19 History [Karli-Jann Original] black cohosh 80 mg PO DAILY 07/11/19 07/11/19 History chlorpheniramine-acetaminophen 1 tab PO DIRECTED 07/11/19 07/11/19 History [Coricidin HBP Cold and Flu] cholecalciferol (vitamin D3) 2,000 unit PO DAILY 07/11/19 07/11/19 History [Vitamin D3] clotrimazole 1 applic TOPICAL BID 07/11/19 07/11/19 History diphenhydramine HCl [Benadryl] 25 mg PO PRN PRN 07/11/19 07/11/19 History fexofenadine 180 mg PO DAILY PRN 07/11/19 07/11/19 History fluticasone propionate 1 spray INTRANASAL DAILY PRN 07/11/19 07/11/19 History garlic 1,000 mg PO DAILY 07/11/19 07/11/19 History priti (Zingiber officinalis) 550 mg PO DAILY 07/11/19 07/11/19 History hyalur ac-chond sul-colg II-AA 1 cap PO BID 07/11/19 07/11/19 History [Hyaluronic Acid (chond-collgn)] hydrocodone-acetaminophen 1 tab PO Q4-6H PRN 07/11/19 07/11/19 History magnesium oxide 400 mg PO DAILY 07/11/19 07/11/19 History multivitamin with minerals 1 tab PO BID 07/11/19 07/11/19 History [Hair,Skin and Nails] Allergies Allergy/AdvReac Type Severity Reaction Status Date / Time Sulfa (Sulfonamide Allergy Intermediate Rash Verified 07/11/19 14:37 Antibiotics) tamsulosin Allergy Intermediate Swelling Verified 07/11/19 14:37 of the Eye cetirizine [From ZYRTEC] Allergy Unknown Verified 07/11/19 13:09 Estrogens [ESTROGENS] Allergy Unknown Verified 07/11/19 13:09 ezetimibe [From ZETIA] Allergy Unknown Verified 07/11/19 13:09 Progestins [PROGESTINS] Allergy Unknown Verified 07/11/19 13:09 ranitidine [From ZANTAC] Allergy Unknown Verified 07/11/19 13:09 rosiglitazone [From AVANDIA] Allergy Unknown Verified 07/11/19 13:09 simvastatin [From ZOCOR] Allergy Unknown Verified 07/11/19 13:09 albuterol AdvReac Intermediate Anxiety Verified 07/11/19 14:37 meloxicam [From Mobic] AdvReac Intermediate Dizziness Verified 07/11/19 14:37 TRIPLIPIX Allergy Unknown Uncoded 07/11/19 13:09 Review of Systems Review of Systems Narrative: All systems reviewed and are unremarkable except as noted in HPI and below Exam Vital Signs (past 8 hours): - 07/11/19 12:55 07/11/19 13:30 07/11/19 14:51 Temperature 98 F Pulse Rate 81 80 85 Respiratory Rate 26 H 23 16 Blood Pressure 152/76 H Blood Pressure [Right Arm] 152/76 H Pulse Oximetry 100 100 100 07/11/19 17:00 07/11/19 17:15 07/11/19 20:30 Temperature 98.6 F 98.2 F Pulse Rate 100 H 92 H 96 H Respiratory Rate 20 18 18 Blood Pressure 174/94 H 170/93 H Blood Pressure [Right Arm] 186/88 H Pulse Oximetry 99 Oxygen Delivery Method Room Air Narrative Exam Narrative: Constitutional: NAD Neurologic: Awake and alert. Oriented to person, place, time, and reason for hospital admission. GCS 15 Mildly forgetful No tremor Head: NC, AT Eyes: Pupils equal, round, and reactive. Sclera of right eye is red. Visual acuity intact. Ears: External ears normal, no otorrhea Nose: External nose normal, no rhinorrhea or epistaxis Throat: MMM, oropharynx w/o exudate Neck: no masses, lymphadenopathy, or JVD Chest / Respiratory: equal chest rise, unlabored respiratory effort at rest, no dyspnea or tachypnea at rest, able to speak in full sentences without difficulty Heart / CV: S1S2, murmur present Abdomen / GI: round, NT, ND, + BS, no organomegaly : no suprapubic tenderness, no CVA Peripheral / Vascular: cool to touch, DP and PT pulses palpable, no edema Musc: full ROM of upper and lower extremities, adequate muscle tone and bulk Left lower extremity slightly weaker than RLE Skin: no ecchymosis or suspicious lesions Objective Labs Result Diagrams: 07/11/19 13:35 07/11/19 13:35 Labs: Laboratory Results - last 24 hr 07/11/19 07/11/19 07/11/19 13:35 13:35 13:35 WBC 9.9 RBC 4.20 Hgb 14.3 Hct 41.4 MCV 98.7 MCH 34.0 MCHC 34.5 RDW 12.7 Plt Count 290 Neut % (Auto) 53.1 Lymph % (Auto) 36.5 [place] % (Auto) 8.7 Eos % (Auto) 0.6 L Baso % (Auto) 1.1 Neut # (Auto) 5300 Lymph # (Auto) 3600 [place] # (Auto) 900 Eos # (Auto) 100 Baso # (Auto) 100 PT 11.0 INR 1.0 APTT 34 D-Dimer 315 H Sodium 141 Potassium 3.6 Chloride 108 H Carbon Dioxide 22 BUN 14 Creatinine 0.60 Estimated GFR > 60.0 BUN/Creatinine Ratio 23.3 H Glucose 122 H Calcium 9.5 Total Bilirubin 0.6 AST 21 ALT 23 Alkaline Phosphatase 55 Total Creatine Kinase 44 CK-MB (CK-2) TNP CK-MB (CK-2) Rel Index TNP Troponin I < 0.012 B-Natriuretic Peptide < 100 Total Protein 7.0 Albumin 4.2 Globulin 2.8 Albumin/Globulin Ratio 1.5 Lipase 34 Assessment & Plan Assessment & Plan narrative: Exertional dyspnea, acute, present on admission, active - continuous pulse ox - echo in am - cta chest stat to r/o pulmonary embolism Chest pain, acute, present on admission, active - tele monitoring - vs q4h - trend troponin - risk stratify (a1c, fasting lipid panel) - additional labs: mg, tsh, and A1C (add-on labs); lipid panel, bmp (am labs) - ASA 324 mg (received in ED); continue ASA 81 mg daily Elevated BP, acute, present on admission, active - per patient, no prior diagnosis of hypertension; denies current or prior use of anti-hypertensive medications - trend BP Elevated D-Dimer (315), present on admission, active - CTA chest to r/o PE Hyperlipidemia, chronic condition, present on admission, active - prior h/o intolerance to Zetia and Zocor, reaction is not known - fasting lipid profile in am - consider PCSK9 inhibitor, if lipid lowering agent is needed Chronic pain (osteoarthritis, back pain w/ sciatica), chronic condition, present on admission, active - Tylenol prn Polypharmacy, present on admission, active - Patient would benefit from re-evaluation of her home medication regimen Code status discussed w/ patient, wishes to be full code. Spouse is they surrogate decision maker. VTE prophylaxis w/ SCDs Home medications reviewed and reconciled accordingly Quality VTE Deep Vein Thrombosis/Pulmonary Embolism Present on Admission: No
--- NOTE | 2019-07-11 21:51 | DI.CT.S_ITS ---
PROCEDURE: CT ANGIO CHEST PE PROTOCOL INDICATIONS: exertional dyspnea, chest pain, elev d-dimer TECHNIQUE: After the administration of intravenous contrast, 2 mm thick sections acquired from the pulmonary apices to the posterior costophrenic angles. 3-dimensional maximum intensity projection (MIP) coronal and sagittal reformats were then acquired through the thorax. For radiation dose reduction, the following was used: automated exposure control, adjustment of mA and/or kV according to patient size. COMPARISON: [facility], CT, KIDNEY/ URETER/BLADDER, 07/21/2017, 22:53. FINDINGS: Image quality: Excellent. Pulmonary arteries: Pulmonary arteries are normal in size, and demonstrate no intraluminal filling defects to suggest central pulmonary embolism. Lungs and pleura: Noncalcified 5 mm subpleural pulmonary nodule, superior segment of right lower lobe. Noncalcified 4 mm subpleural pulmonary nodule, right middle lobe. Minimal scarring, right upper lobe, image 66/5. Lungs are clear. No pleural effusions or pneumothorax. Central and peripheral airways are patent. Mediastinum: Heart size is normal, without pericardial effusion. Coronary artery atherosclerotic calcifications. No mediastinal or hilar adenopathy. Thoracic aorta is normal in caliber and enhancement. Esophagus is normal in caliber, without hiatal hernia. Bones and chest wall: No suspicious bony lesions. Ribs and thoracic spine appear intact throughout. Thyroid gland contains a 9 mm peripherally calcified nodule in the right lobe.. No axillary or supraclavicular adenopathy. Abdomen: Hepatic steatosis. Remote cholecystectomy. Left upper pole renal stone. IMPRESSION: 1. No evidence pulmonary emboli. 2. There are 2 noncalcified pulmonary nodules in the right lung, the larger of which measures 5 mm. Please see chart below for followup recommendations. 3. Coronary artery disease. 4. Subcentimeter thyroid nodule. Comment: Final report is concordant with preliminary interpretation provided by [facility]. Fleischner Society criteria for SOLID lung nodule followup. Nodule size (mm)Low-risk patientHigh-risk patient<6 (single or multiple)No routine followup.Optional CT at 12 months. 6-8 (single or multiple)CT at 6-12 months, then optional CT at 18-24 mo.CT at 6-12 months, then CT at 18-24 months. >8 (single)CT at 3 months, PET-CT, or biopsy. Same as for low-risk pts. >8 (multiple)CT at 3-6 months, then optional CT at 18-24 mo.CT at 3-6 months, then CT at 18-24 months. Fleischner Society criteria for SUB-SOLID lung nodule followup. Solitary pure ground-glass nodules<6 mm (ground glass or part solid)No followup needed. 6 mm or larger (ground glass)CT at 6-12 months to confirm persistence, then CT every 2 years until 5 years.6 mm or larger (part solid)CT at 3-6 months to confirm persistence, then annual CT until 5 years if unchanged and solid component remains <6 mm. Multiple sub-solid nodules<6 mmCT at 3-6 months, then CT consider at 2 & 4 years for high risk patients. [address] at 3-6 months. Subsequent management based on most suspicious lesions. Recommendations do not apply to lung cancer screening, patients with immunosuppression, or patients with known primary cancer. Dictated by: Pillo Lewis M.D. on 07/12/2019 at 7:53 Approved by: Pillo Lewis M.D. on 07/12/2019 at 8:02
--- NOTE | 2019-07-11 21:59 | PC.NURSE ---
Addendum entered by Miguelina Lange R.N. 07/11/19 22:27: [address] scan transferred by this RN and DAX Alba, in stable condition. Awake, alert, and pleasant, speaking in full sentences at rest. O2 sat 99% on RA. Original Note: Mercedes shift note: 1715: Patient awake, and alert, speaking in short sentences. SOB noted with exertion, O2 sat 99% on RA. NO c/o chest pain or pressure. 2149: Ambulated patient in room, pulse ox remains 99% on RA at rest and with activity. HR increased from 98 at rest to 120 with activity, dyspneic, and fatigues. Tahira JULIO aware.
[2019-07-11 22:05] LABS: Magnesium 1.7 mg/dL (1.6-2.3)
[2019-07-11 23:11] LABS: Thyroid Stimulating Hormone 1.23 uIU/mL (0.47-4.68)
[2019-07-11 23:26] LABS: Hemoglobin A1C% w Est Avg Glu 7.6 % (4.0-6.0)
[2019-07-12] VITALS (7 sets, daily range): BP systolic 124–172; BP diastolic 81–93; PULSE 93–103; RESP 18–20; TEMP 36.8–36.9; O2SAT 96–100
--- NOTE | 2019-07-12 01:19 | PC.NURSE ---
Addendum entered by Singh Gupta R.N. 07/12/19 04:43: 0300: Pt sleeping; respirations unlabored. Addendum entered by Singh Gupta R.N. 07/12/19 01:43: 0136: Protonix 40mg IV given. Nitro SL 1 tablet given per SUMANTH Osborn. 0140: B/P 140/93, HR 103, RR 18. Original Note: [employer] Note: 0000: Awake, resting in bed. Pt denies chest pain but states she still has a small amount of chest pressure, that is slowly resolving. IV in place in rt wrist. Pt is NPO for stress test later this morning. Pt remains on telemetry. Pt advised to call nurse if she has chest pain or increased pressure in chest. 0100: Pt calling, states she is having chest pain. She has some shortness of breath. RT notified of need for EKG. SUMANTH Osborn notified. Vital signs stable. HOB elevated 45 degrees. B/P 172/83, HR 96, RR 20. O2 sat on room air is 96%. 0105: RT at bedside with EKG in progress. SUMANTH Osborn at bedside. Pt states the pain is like indigestion. 0125: CBG 137.
[2019-07-12] MEDS: PANTOPRAZOLE 40 MG VIAL IV (01:35)
[2019-07-12] MEDS: NITROGLYCERIN 0.4 MG SL TAB SL (01:36)
[2019-07-12 07:44] LABS: Cholesterol 220 mg/dL (140-199); HDL Cholesterol 31 mg/dL (40-60); LDL Cholesterol Calculated 128 mg/dL (<100); Triglycerides 305 mg/dL (35-150)
[2019-07-12 07:54] LABS: Troponin I < 0.012 ng/mL (0.01-0.034)
[2019-07-12] MEDS: ASPIRIN 81 MG CHEW TAB PO (09:36)
--- NOTE | 2019-07-12 10:56 | DI.ECHO.S_ITS ---
[facility] +---------+ : : [address] [place] : : : : [id number] : : : : Phone: [phone] Echocardiogram Report + + :Name: BARAK RAMIREZ Study Date: 07/12/2019 Height: 62 in : :[facility] Weight: 135 lb: : Gender: Female BSA: 1.6 m2 : :: 1945 Age: 74 yrs : :Reason For Study: Dyspnea : : Performed By: Ansley Dunaway : :Referring: JOSÉ LUIS JAIN : + + Interpretation Summary 1) Small left ventricular cavity with hyperdynamic systolic function (EF 75- 80%). 2) Peak gradient across the LVOT is mildly elevated at 35mmHg with valsalva. Suspected etiology is hyperdynamic state rather than true LVOT obstruction. 3) Normal right ventricular size and function. 4) No significant valvular abnormalities. 5) Compared to the Echo done 08/21/2014, no significant change. Procedure: A two-dimensional transthoracic echocardiogram with color flow and Doppler was performed. The study quality was technically adequate. Comparison is made with the echocardiogram of 08-21-14. The heart rate ranged between 96-102 bpm during the study. Left Ventricle: There is normal left ventricular wall thickness. Proximal septal thickening is noted. The left ventricular cavity is small. The ejection fraction is estimated to be 75-80%. The left ventricle is hyperdynamic. There are no focal wall motion abnormalities. Diastolic function could not be accurately assessed due to unobtainable data. Right Ventricle: The right ventricle is grossly normal size. The right ventricular systolic function is normal. Atria: The left atrial size is normal. Right atrial size is normal. Mitral Valve: There is mild calcification extending into the subvalvular apparatus. The mitral valve is grossly normal. There is no mitral regurgitation noted. Aortic Valve: The aortic valve opens well. The aortic valve is moderately calcified. No aortic regurgitation is present. Tricuspid Valve: The tricuspid valve is normal in structure and function. No tricuspid regurgitation. Pulmonic Valve: The pulmonic valve is not well seen, but is grossly normal. There is no pulmonic valvular regurgitation. Great Vessels: The aortic root is normal size. The aortic arch is at the upper limits of normal in size. The IVC is of normal diameter and collapses greater than 50% with a sniff. This suggests a low right atrial pressure of 3 mm Hg. Pericardium/ Pleura There is no pericardial effusion. There is an anterior echo-free space consistent with a fat pad. There is no pleural effusion. MMode/2D Measurements & Calculations LVIDd: 3.4 cm Ao root diam: 2.8 cm LVIDs: 2.0 cm Aortic Jxn: 2.7 cm FS: 43.1 % asc Aorta Diam: 3.2 cm IVSd: 0.98 cm Ao Arch Diam (Prox Trans): 3.0 cm LVPWd: 0.81 cm LV morillo. diameter/BSA (cm/m^2): 2.1 LV sys. diameter/BSA (cm/m^2): 1.2 LA dimension: 3.0 cm RA long axis: 3.3 cm LA A2 area: 13.3 cm2 RA area: 6.6 cm2 LA A4 area: 11.8 cm2 RA vol: 11.2 ml LA length (vol): 3.9 cm RA : 7.0 ml/m2 LA vol: 33.9 ml IVC diam: 1.8 cm LA vol index: 21.0 ml/m2 RVDd major: 4.3 cm RVD1 (basal): 2.7 cm RVD2 (mid): 2.3 cm Doppler Measurements & Calculations Ao V2 max: 182.7 cm/sec MV E max kwaku: 87.4 cm/sec Ao V2 mean: 117.9 cm/sec MV A max kwaku: 135.0 cm/sec Ao max P.3 mmHg MV E/A: 0.65 Ao mean P.7 mmHg Med Peak E' Kwaku: 4.5 cm/sec Ao V2 VTI: 32.0 cm E/E' med: 19.3 Lat Peak E' Kwaku: 4.5 cm/sec E/E' lat: 19.3 E/e' average: 19.3 MV dec time: 0.23 sec MV P1/2t: 68.8 msec PA V2 max: 84.6 cm/sec MV P1/2t max kwaku: 88.6 cm/sec PA V2 mean: 58.6 cm/sec MVA(P1/2t): 3.2 cm2 PA mean P.6 mmHg PA Accel Time: 0.13 sec Reading Physician:03:10 PM
--- NOTE | 2019-07-12 12:21 | PC.NURSE ---
Patient off unit for stress test.
--- NOTE | 2019-07-12 12:58 | PM.TREADMILL ---
Cardiac Stress Test Report Referral & Results Date Patient Seen: 07/12/19 Time Patient Seen: 12:00 Requesting provider: Barbara Perez Indication: Chest pain Rest ECG: NSR Procedure Note: After both written and verbal informed consent the patient had an IV started by the diagnostic imaging RN, and then was hooked up to the treadmill monitoring system. The Lexiscan material, and then the Cardiolite tracer, were administered sequentially. An additional 3 min was spent monitoring the patient while supine on the gurney. Lightheaded and nauseated prior to the test. The symptoms worsened somewhat after materials given. Patient complained of mild shortness of breath and stomach pain. Some retching at the end of the test. No change in rhythm during the test. The patient had a normal HR/BP response to all infused materials. Impression: Successful Rosanne protocol. Will await perfusion imaging. Please note: Actual ECG tracings can be found in the PACS system.
--- NOTE | 2019-07-12 14:27 | CM.IDA ---
Addendum entered by ALL Pérez 07/12/19 15:25: Stress test normal, likely DC home tonight w/supportive family via pov, or possibly tomorrow. JW Original Note: Initial DCP Assessment Note: Pt is 74 yo female, resident of [place]. Pt here under observation for chest pain. PCP: Lion Coats Payer: Medicare/[employer] Reviewed chart. Pt of floor for stress test today. Pt discussed in multidisciplinary rounds, Dr York indicates pt may transfer if stress test is positive. This RING MAKER following closely and will plan further assessment if pt remains here, possible DC home if neg stress test, w/spouse and close outpt f/u. ALL Pérez
--- NOTE | 2019-07-12 15:49 | DI.NM.S_ITS ---
DATE OF SERVICE: 07/12/2019 PROCEDURE PERFORMED: Pharmacologic stress and rest myocardial perfusion imaging study performed with gating to assess ejection fraction and regional wall motion performed has a 1-day protocol. ORDERING PROVIDER: Casa Israel M.D. INDICATIONS: The patient is a 74-year-old female admitted with atypical chest discomfort and dyspnea. CARDIAC STRESS: Per protocol, 0.4 mg of regadenoson was infused with a normal hemodynamic response with a significant increase in her heart rate up to 133 bpm (90% of her predicted maximum). She developed nausea and vomiting with some mild dyspnea and abdominal discomfort but no chest pain. Her resting ECG is normal and there are no ischemic changes with pharmacologic stress. She was injected with 23.4 mCi a technetium-99 Myoview and was imaged 15 minutes later. Earlier in the day, she had been injected with a .3 mCi of technetium-99 Myoview and imaged 30 minutes following that injection using a gated SPECT protocol. FINDINGS: 1. Raw Data: There is fair good myocardial tracer uptake. The lung/heart ratio is normal at 0.34. While the calculated TID ratio is elevated at 1.63, this is not visually apparent and is likely artifactual because of very small left ventricular volumes. The patient was unable to lay prone because of her abdominal pain and vomiting. 2. Quantitative Gated SPECT: Post stress ejection fraction is calculated at 91%, most likely an overestimate of her true ejection fraction because of small left ventricular volumes. Resting ejection fraction is calculated at 88% and appears identical to that of the post stress images with a resting end-diastolic volume of only 26 mL. 3. Myocardial Perfusion Imaging: Post stress supine images shows a fairly normal myocardial perfusion pattern. There may be a very small, subtle defect in the distal inferolateral apex that could reflect attenuation artifact but no prone images are available. The resting images show a similar perfusion pattern, although with very subtle, nonspecific improvement in the inferolateral apex. CONCLUSION: 1. Probable normal myocardial perfusion study. 2. Small, subtle reversible distal inferolateral perfusion defect that is likely artifactual but a very small volume of ischemia cannot be entirely excluded, but if present, occupies a very small volume of myocardium and is low risk. 3. High normal left ventricular systolic function with small left ventricular volumes without any focal wall motion abnormality. Consider a volume contracted state. 4. No angina or ECG evidence of ischemia with pharmacologic vasodilator stress although with significant nausea, vomiting, and abdominal pain.. Chuchomichael Brittnee - SUSAN/mary ellen/ab doc#: [id number]/job#: [id number] dd: 07/12/2019 13:22:00 dt: 07/12/2019 14:56:00 DICTATING MD/COPIES TO: Lion Choudhary MD; Casa Israel M.D. COPIES MNE: LEEANN HATCH
--- NOTE | 2019-07-12 16:54 | PM.DS.1 ---
History of Present Illness History of Present Illness Date Patient Seen: 07/12/19 Time Patient Seen: 16:54 Chief complaint: Chest Pain Narrative: As per SUMANTH Barry: The patient is a 74-year-old female With PMH of HTN, IDDM, HDL, PVD, hiatal hernia, IBS-C, chronic pain (OA, mid and upper back pain, sciatica), allergic rhinitis, and anxiety/depression. Patient presented to the ED on 07/11/2019 directly from her PCPs office (Dr. Coats) for further evaluation of chest pain. Patient went to see her PCP out of concern for 1 month long history shortness of breath. Shortness of breath is present with exertion only. Patient states she can only take 2-3 steps before she has to rest. Associated symptoms include mid-sternal chest pressure. Chest pressure resolves with rest. There is no radiation to the back, extremities, neck or jaw. Chest discomfort is not associated with headache, diaphoresis, dizziness, lightheadedness, syncopal events, hemoptysis, abdominal pain, nausea or vomiting. Patient denies wheezing. Denies orthopnea, peripheral edema, PND, and claudication. Patient states that she was recently diagnosed with asthma, however denies having any pulmonary function tests or imaging done. Home medication regimen does not include bronchodilators. Reports presence of allergic rhinitis. Overall patient is allergic to number of medications. There is also concern for polypharmacy. She is taking a number of OTC medications and supplements. She does admit that she does not discussed these with her PCP. Reports prior history of GI ulcers, GERD, and polypectomy. No prior history of a GI bleed. Denies history of hypertension. She does have dyslipidemia, history shows intolerance to Zetia and Zocor. Patient unable to recall reaction. Reports underlying anxiety and depression, however admits those to be controlled at this time. Denies prior history of a stress test. She has had an echocardiogram number of years ago, however unable to recall associated findings. Denies current or prior history of tobacco use. Reports baseline gait instability and trouble with balance. Reports baseline left lower extremity weakness associated with injury over 20 years ago. Denies prior history of an SD, cerebrovascular events, and thrombosis. Discharge Providers Provider Date of admission: 07/11/19 15:44 Discharge Date: 07/12/19 Primary care physician: Lion Coats MD Discharge provider: Casa Israel DO Summary Hospital Course Discharge Diagnosis: Exertional dyspnea, acute, present on admission, active Chest pain, acute, present on admission, active Elevated BP, acute, present on admission, active Elevated D-Dimer (315), present on admission, active Hyperlipidemia, chronic condition, present on admission, active Chronic pain (osteoarthritis, back pain w/ sciatica), chronic condition, present on admission, active Hospital Course: This is a 74-year-old female with past medical history hyperlipidemia who presented with 1 month of dyspnea on exertion. She had an elevated D-dimer and underwent a CTA of her chest which was negative. She then underwent an echocardiogram which was unchanged since her prior exam and showed no wall motion abnormalities and a normal ejection fraction. She underwent a nuclear stress test which was not indicative of ischemia. Her chest discomfort improved with the regimen for acid reflux. She was discharged home the following day. She should follow up with her primary care doctor regarding some elevated cholesterol levels and for further workup of dyspnea on exertion. She states she will call her primary care provider tomorrow. Status at Discharge Cognitive/behavioral status at discharge: oriented Functional status at discharge: independent ambulation Overall status at discharge: patient is back to baseline Exam Vital Signs (past 8 hours): - 07/12/19 12:56 07/12/19 15:35 Temperature 98.3 F Pulse Rate 102 H Respiratory Rate 18 18 Blood Pressure 148/81 H 124/88 Pulse Oximetry 100 98 Oxygen Delivery Method Room Air Oxygen Flow Rate 0 Narrative Exam Narrative: GENERAL APPEARANCE: Well developed, well nourished, elderly female in no acute distress. SKIN: Inspection of the skin reveals no rashes, ulcerations or petechiae. HEENT: The sclerae were anicteric and conjunctivae were pink and moist. Extraocular movements were intact and pupils were equal, round with normal accommodation. External inspection of the ears and nose showed no scars, lesions, or masses. Lips, teeth, and gums showed normal mucosa. The oral mucosa, hard and soft palate, tongue and posterior pharynx were unremarkable. NECK: Supple and symmetric. There was no thyroid enlargement, and no tenderness, or masses were felt. CHEST: Normal AP diameter and normal contour without any kyphoscoliosis. LUNGS: Auscultation of the lungs revealed no wheezes, rhonchi, or rales. CARDIOVASCULAR: There was a regular rate and rhythm without any murmurs, gallops, rubs. Peripheral pulses were 2+ and symmetric. ABDOMEN: Soft and nontender with normal bowel sounds. No ascites was noted. MUSCULOSKELETAL: There was no tenderness or effusions noted. Muscle strength and tone were normal. EXTREMITIES: No cyanosis, clubbing or edema. NEUROLOGIC: Alert and oriented x 3. Normal affect. Gait was normal. Strength is +5/5 in the Upper Extremities and Lower Extremities Bilaterally. Sensation to touch was normal. Objective Labs Result Diagrams: 07/11/19 13:35 07/11/19 13:35 Labs: Laboratory Results - last 24 hr 07/11/19 07/11/19 07/11/19 13:35 13:35 13:35 Hemoglobin A1c 7.6 H Magnesium 1.7 Troponin I Triglycerides Cholesterol LDL Cholesterol, Calc HDL Cholesterol TSH 1.23 07/12/19 07:14 Hemoglobin A1c Magnesium Troponin I < 0.012 Triglycerides 305 H Cholesterol 220 H LDL Cholesterol, Calc 128 H HDL Cholesterol 31 L TSH Discharge Plan Discharge Plan Patient Disposition: Home Discharge comment: You were admitted to the hospital for shortness of breath on exertion. You had a CTA of your chest which did not show any pulmonary embolism, you subsequently underwent a stress test and an echocardiogram. Your stress test did not show any evidence of ischemia, although there was potentially an artifact at the base of your heart. Your ultrasound was unchanged since your last exam. Your cholesterol was mildly elevated with an LDL of 128, you should follow up with your primary care provider regarding this information. If you shortness of breath should continue, you may need additional testing. Discharge Med Rec/Prescriptions Prescriptions: Continued Novolin N NPH U-100 Insulin 100 unit/mL suspension 0 unit SQ BID Qty: 0 RF: 0 fluticasone propionate 50 mcg/actuation spray,suspension 1 spray INTRANASAL DAILY PRN (Reason: Allergy Symptoms) RF: 0 hydrocodone-acetaminophen 5-325 mg tablet 1 tab PO Q4-6H PRN (Reason: pain) RF: 0 fexofenadine 180 mg Tablet 180 mg PO DAILY PRN (Reason: Allergy Symptoms) RF: 0 acetaminophen 500 mg Tablet 500 mg PO DAILY PRN (Reason: pain) RF: 0 acetaminophen [Tylenol 8 Hour] 650 mg Tablet Extended Release 650 mg PO DIRECTED RF: 0 garlic 1,000 mg Capsule 1,000 mg PO DAILY RF: 0 black cohosh 20 mg Tablet 80 mg PO DAILY RF: 0 diphenhydramine HCl [Benadryl] 25 mg Capsule 25 mg PO PRN PRN (Reason: as directed) RF: 0 multivitamin with minerals [Hair,Skin and Nails] Tablet 1 tab PO BID RF: 0 clotrimazole 1 % Cream 1 applic TOPICAL BID RF: 0 Excedrin Migraine 250-250-65 mg Tablet 1 tab PO PRN PRN (Reason: Migraine Headache) RF: 0 Coricidin HBP Cold and Flu 2-325 mg Tablet 1 tab PO DIRECTED RF: 0 priti (Zingiber officinalis) 550 mg Capsule 550 mg PO DAILY RF: 0 [place] Original 325-1,916-1,000 mg Tablet, Effervescent 1 tab PO PRN PRN (Reason: as directed) RF: 0 cholecalciferol (vitamin D3) [Vitamin D3] 2,000 unit Capsule 2,000 unit PO DAILY RF: 0 alpha lipoic acid 200 mg Capsule 400 mg PO DAILY RF: 0 Hyaluronic Acid (chond-collgn) 40-80-400 mg Capsule 1 cap PO BID RF: 0 magnesium oxide 400 mg magnesium Tablet 400 mg PO DAILY RF: 0 Carmelo Plus Extra Strength 500 mg 500 mg PO PRN PRN (Reason: pain) RF: 0 Biocitrate Potassium 1 dose PO DAILY RF: 0 Blood Sugar Balance 1 dose PO DIRECTED RF: 0 Lutein Plus Bilberry 2 cap PO DAILY RF: 0 Awilda's wort 150 mg 150 mg PO PRN PRN (Reason: as directed) RF: 0 Tart Peterson Advanced 1 tab PO PRN PRN (Reason: as directed) RF: 0 Follow up/Referrals: Lion Coats MD [Primary Care Provider] - Provider Discharge Instructions Diet: Diet as Tolerated Activity: As tolerated Discharge Data Primary Care Provider: Lion Coats Attending Provider: Casa Israel Admit Date/Time: 07/11/19 15:44 Quality VTE Deep Vein Thrombosis/Pulmonary Embolism Present on Admission: No
== END 2019-07-12 17:45 | disposition home or self-care (01) ==
LOC: ED 14:13 → AC 15:44
PROVIDERS: Nurse Practitioner Gerontology; Admitting Provider Internal Medicine; Emergency Provider Nurse Practitioner Family; PCP Family Medicine; Visit Provider Internal Medicine
DX: R07.9 Chest pain, unspecified (principal); R06.02 Shortness of breath; E11.9 Type 2 diabetes mellitus without complications; Z79.4 Long term (current) use of insulin; E78.5 Hyperlipidemia, unspecified; I10 Essential (primary) hypertension; K44.9 Diaphragmatic hernia without obstruction or gangrene; G89.29 Other chronic pain; M54.30 Sciatica, unspecified side; M19.90 Unspecified osteoarthritis, unspecified site; I73.9 Peripheral vascular disease, unspecified; K58.1 Irritable bowel syndrome with constipation; F32.9 Major depressive disorder, single episode, unspecified; F41.9 Anxiety disorder, unspecified; J30.9 Allergic rhinitis, unspecified
CPT/HCPCS: 36415; 71046; 71275; 78452; 80053; 80061; 82550; 82962; 83036; 83690; 83735; 83880; 84443; 84484; 85025; 85379; 85610; 85730; 93005; 93016; 93017; 93018; 93041; 93306; 94640; 94762; 96374; 99283; 99285; G0378; A9502; C9113; J2785; Q9967

== ENCOUNTER → 2019-08-30 10:48 | Outpatient (CLI) | payer MEDICARE, OTHER, SELFPAY ==
[2019-07-11 15:56] VITALS: BMI 24.8
--- NOTE | 2019-09-07 08:54 | PM.PFT.1 ---
Pulmonary Function Test Referral & Results Date Patient Seen: 08/30/19 Requesting provider: Lion Coats Results: The spirometry demonstrates an FVC of 1.58 L which is 58% of predicted. The FEV1 was measured at 1.32 L which is 65% of predicted. The FEV1/FVC ratio was 83 which is 110% of predicted. Following the administration of bronchodilator there was a 40% improvement in FEF 25-75%. Lung volumes show an SVC of 1.45 L which is 55% of predicted. The diffusing capacity was measured at 14.59 which is 67% of predicted. No hemoglobin value was provided, so no correction for potential anemia could be made, if appropriate. The maximum voluntary ventilation was reduced Interpretation: This study demonstrates moderate obstructive lung disease based on reduction FEV1. There is also a very mild improvement in small airway flow after bronchodilator based on improvement in FEF 25-75% as above There is also moderate restrictive lung disease based on reduction SVC There is also reduction in diffusing capacity suggesting an element of disease at the capillary alveolar level
== END ==
PROVIDERS: PCP Family Medicine; Visit Provider Family Medicine
DX: R06.02 Shortness of breath (principal)
CPT/HCPCS: 94060; 94726; 94729

== ENCOUNTER → 2019-11-22 10:12 | Outpatient (CLI) | payer MEDICARE, OTHER, SELFPAY ==
[2019-07-11 15:56] VITALS: BMI 24.8
--- NOTE | 2019-11-22 10:17 | DI.RAD.S_ITS ---
PROCEDURE: XR KNEE RT 3V INDICATIONS: RT KNEE PAIN TECHNIQUE: 3 views of the knee were acquired. COMPARISON: None. FINDINGS: Bones: No fractures or dislocations. No suspicious bony lesions. Mild to moderate degenerative change at the patellofemoral joint seen on the sunrise view. Soft tissues: No joint effusion. No suspicious soft tissue calcifications. IMPRESSION: Patellofemoral joint mild to moderate degenerative osteoarthritis. No trauma found, no effusion identified. Dictated by: Malachi Hair M.D. on 11/22/2019 at 11:09 Approved by: Malachi Hair M.D. on 11/22/2019 at 11:10
== END ==
PROVIDERS: PCP Family Medicine; Referring Provider Family Medicine; Visit Provider Family Medicine
DX: M25.561 Pain in right knee (principal); M17.11 Unilateral primary osteoarthritis, right knee
CPT/HCPCS: 73562

== ENCOUNTER → 2020-04-14 11:22 | Outpatient (CLI) | payer MEDICARE, OTHER, SELFPAY ==
[2019-07-11 15:56] VITALS: BMI 24.8
[2020-04-15 20:26] LABS: COVID19 Sendout Not Detected (Not Detect)
== END ==
PROVIDERS: PCP Family Medicine; Visit Provider Physician Assistant
DX: Z01.812 Encounter for preprocedural laboratory examination (principal)
CPT/HCPCS: 87635

== ENCOUNTER → 2020-04-17 13:49 | Outpatient (CLI) | payer MEDICARE, OTHER, SELFPAY ==
[2019-07-11 15:56] VITALS: BMI 24.8
--- NOTE | 2020-04-27 13:05 | PM.PFT.1 ---
Pulmonary Function Test Referral & Results Date Patient Seen: 04/17/20 Requesting provider: Reinaldo Blank Indication: Restrictive lung disease Results: The spirometry demonstrates an FVC of 1.61 L which is 60% of predicted. The FEV1 was measured at 1.33 L which is 66% of predicted. The FEV1/FVC ratio was 83 which is 109% of predicted. No bronchodilator was administered No lung volumes were performed No diffusing capacity was performed Interpretation: This study demonstrates mild to moderate reduction in FEV1 suggesting perhaps mild obstructive lung disease which also appears to be present based on shape a flow volume loop. However FEV1/FVC ratio was normal to slightly increased which altogether would suggest possible moderate restrictive lung disease. Suggest patient have lung volumes performed as well Clinical correlation suggested
== END ==
PROVIDERS: PCP Family Medicine; Referring Provider Internal Medicine Pulmonary Disease; Visit Provider Internal Medicine Pulmonary Disease
DX: J98.4 Other disorders of lung (principal)
CPT/HCPCS: 94010

== ENCOUNTER 2022-01-15 16:50 | Observation (INO) | payer MEDICARE, OTHER, SELFPAY ==
[2019-07-11 15:56] VITALS: BMI 24.8
[2022-01-15] VITALS (76 sets, daily range): BP systolic 93–120; BP diastolic 42–60; PULSE 60–79; RESP 11–36; TEMP 36–36.6; O2SAT 94–100; BMI 25.8
--- NOTE | 2022-01-15 16:47 | DI.CT.S_ITS ---
PROCEDURE: CT CERVICAL SPINE WO CON INDICATIONS: Fall/injury TECHNIQUE: Noncontrast 3 mm thick sections acquired from the skull base to the T4 level. Sagittal and coronal reformats were then constructed. For radiation dose reduction, the following was used: automated exposure control, adjustment of mA and/or kV according to patient size. COMPARISON: [facility], CT, CT ANGIO HEAD AND NECK, 01/15/2022, 17:04. [facility], CT, CT FACIAL BONES WO CON, 01/15/2022, 16:55. [facility], CT, CT STROKE, 01/15/2022, 16:55. FINDINGS: Image quality: This examination is somewhat limited by quantum mottle artifact. Bones: No fractures or dislocations. Visualized superior ribs are intact. Focal degenerative change is seen involving the C1-C2 interface anteriorly. There is at least moderate disc space narrowing at C3-C4, with posteriorly directed endplate osteophytes at this site. Relatively prominent bridging anterior osteophytes are seen C3 through C6. Soft tissues: Prevertebral soft tissues are normal in thickness. No paravertebral hematomas. No apical pneumothoraces. Atherosclerotic calcification is noted. IMPRESSION: Negative for acute fracture. Multiple levels of cervical spine degenerative change are seen, which are worst at the C3-C4 level. Dictated by: Guillermo Weller M.D. on 01/15/2022 at 16:37 Approved by: Guillermo Weller M.D. on 01/15/2022 at 16:39
--- NOTE | 2022-01-15 16:47 | DI.CT.S_ITS ---
PROCEDURE: CT FACIAL BONES WO CON INDICATIONS: Fall/injury TECHNIQUE: Noncontrast 2.5 mm thick axial images acquired from the mandible through the frontal sinuses, with coronal and sagittal reformatting. For radiation dose reduction, the following was used: automated exposure control, adjustment of mA and/or kV according to patient size. COMPARISON: [facility], CT, CT STROKE, 01/15/2022, 16:55. [facility], CT, CT ANGIO HEAD AND NECK, 01/15/2022, 17:04. [facility], CT, CT CERVICAL SPINE WO CON, 01/15/2022, 16:55. FINDINGS: Image quality: Excellent. Bones and teeth: Mildly displaced nasal bone fractures are seen, which are deviated to the left. The anterior nasal septum is also fractured. Orbital correa are intact. Sinus correa show no fracture or deformity. Visualized portions of the mandible demonstrate no fractures or subluxation. Zygomatic arches are intact. Pterygoid plates are intact. Visualized portions of the skull base and auditory canals are intact. Incidental note is made of hyperostosis frontalis. This is not considered to be pathologic in a woman of this age. Generalized thickening can be seen of the skull base, with a thickened and chalky appearance. Sinuses: Mild laceration with soft tissue gas can be seen involving the nose. Soft tissue swelling of the area can be seen. Paranasal sinuses are aerated, without fluid levels, mucosal thickening, or mucoceles. Mastoid air cells are aerated. Soft tissues: No edema, masses, or fluid collections. No enlarged lymph nodes. No soft tissue lacerations or debris. Vascular: Visualized vascular structures appear normal in the absence of contrast. Bony vascular foramina and canals are intact. IMPRESSION: Fractures of the nasal bones, with fracture of the nasal septum also seen. Associated soft tissue swelling with soft tissue laceration and gas can be seen. Generalized abnormal appearance of the bones of the skull base, with a thickened and chalky appearance. Please consider patches disease. Dictated by: Guillermo Weller M.D. on 01/15/2022 at 16:20 Approved by: Guillermo Weller M.D. on 01/15/2022 at 16:23
--- NOTE | 2022-01-15 16:53 | DI.CT.S_ITS ---
PROCEDURE: CT STROKE INDICATIONS: Left-sided weakness TECHNIQUE: Noncontrast 4.5 mm thick angled axial sections acquired from the foramen magnum to the vertex, with coronal reformats. For radiation dose reduction, the following was used: automated exposure control, adjustment of mA and/or kV according to patient size. COMPARISON: None. FINDINGS: Image quality: Excellent. CSF spaces: Basal cisterns are patent. No extra-axial fluid collections. Ventricles are normal in size and shape. Brain: No midline shift. No intracranial masses or hemorrhage. Small area of hypodensity in the right basal ganglia likely due to prior infarct. No area of hypodensity in a large vascular distribution to suggest acute infarction. Periventricular hypodensity consistent with chronic microvascular ischemic change. Age-related parenchymal loss. Skull and face: Calvarium and visualized facial bones are intact, without suspicious lesions. Suspect prior nasal bone fracture. Sinuses: Visualized sinuses and mastoids are clear. IMPRESSION: No acute intracranial abnormality. Prior right basal ganglia lacunar infarct. This study fulfills neurological imaging criteria for inclusion or exclusion of acute stroke therapies based on available published neurological imaging guidelines. Comment: Findings were discussed with Nilesh Goode at the time of dictation. Dictated by: Erlin Lemons M.D. on 01/15/2022 at 17:07 Approved by: Erlin Lemons M.D. on 01/15/2022 at 17:14
--- NOTE | 2022-01-15 16:54 | DI.CT.S_ITS ---
PROCEDURE: CT ANGIO HEAD AND NECK INDICATIONS: Left-sided weakness TECHNIQUE: Noncontrast images were performed earlier in the day and not repeated. After the administration of intravenous contrast, 1 mm thick sections acquired from the aortic arch through the [place] of [place]. Post-contrast 4.5 mm thick sections then re-acquired from the foramen magnum to the vertex. 3-dimensional [id number]-[id number] (MIP) and/or volume rendering reformats were acquired of the central intracranial vasculature and neck separately. For radiation dose reduction, the following was used: automated exposure control, adjustment of mA and/or kV according to patient size. COMPARISON: [facility], CT, CT FACIAL BONES WO CON, 01/15/2022, 16:55. [facility], CT, CT CERVICAL SPINE WO CON, 01/15/2022, 16:55. [facility], CT, CT STROKE, 01/15/2022, 16:55. FINDINGS: Image quality: Limited by bolus timing, with venous contamination. BRAIN: CSF spaces: Ventricles are normal in size and shape. Basal cisterns are patent. No extra-axial fluid collections. Brain: No midline shift. No intracranial bleeds or masses. Shearer-white matter interface appears intact. Skull and face: Nasal bone fractures are seen, with associated soft tissue laceration with gas and swelling.. No calvarial fracture is seen. Orbits appear normal. Incidental note is made of hyperostosis frontalis. This is not considered to be pathologic in a woman of this age. Sinuses: Sinuses and mastoids are clear. HEAD CT ANGIOGRAPHY: Anterior circulation: Intracranial internal carotid arteries are normal in size and flow. The flow within the paired anterior cerebral arteries is normal and symmetric. The flow within the middle cerebral arteries is normal and symmetric. The anterior communicating artery is seen. No aneurysms are seen. Posterior circulation: Visualized portions of the vertebral arteries demonstrate normal caliber, and join to form a normal appearing basilar artery. Flow within the posterior cerebral arteries is normal and symmetric. No aneurysms are seen. NECK CT ANGIOGRAPHY: Carotid system: The great vessels demonstrate a conventional anatomy as they arise from the aortic arch. The origins of the common carotid arteries appear patent. The common carotid arteries demonstrate normal caliber and courses. The bifurcation regions demonstrate atherosclerotic calcification and irregularity. There is 60-70% stenosis seen involving the right proximal internal carotid artery. Approximately 40% stenosis can be seen involving left proximal internal carotid artery. The more distal internal carotid arteries demonstrate normal course and caliber. Posterior circulation: The origins of the vertebral arteries both appear widely patent. The more superior extracranial portions of both vertebral arteries also demonstrate normal courses and calibers. The left vertebral artery is dominant to the right. Soft tissues: Visualized neck soft tissues demonstrate no suspicious abnormalities. Bones: No suspicious bony lesions. Visualized cervical spine appears normally aligned. Moderate cervical spine degenerative changes are seen. IMPRESSION: No significant intracranial arterial abnormality is seen. There is 60-70% stenosis seen involving the right proximal internal carotid artery. No significant vertebral artery abnormality is seen. Nasal bone fractures can be seen, with associated soft tissue laceration. Any quantitative measurements of stenosis were performed using NASCET criteria. Dictated by: Guillermo Weller M.D. on 01/15/2022 at 16:26 Approved by: Guillermo Weller M.D. on 01/15/2022 at 16:29
--- NOTE | 2022-01-15 16:56 | ED_ITS ---
HPI - Neuro Symptoms/Deficit General Chief Complaint: Trauma Stated Complaint: Unwitnessed fall Time Seen by Provider: 01/15/22 16:50 Source: patient and EMS Mode of arrival: EMS History of Present Illness HPI Narrative: Patient brought in by EMS from home for initial report of fall and injury. However after evaluation, a code stroke was called. Patient complained of dizziness causing her to fall and hit appliance and then hit the ground. Denies denies any chest pain or palpitations prior to event. On examination on primary survey patient has weakness to the left arm and left leg. No slurred speech or facial droop. Patient arrived boarded and collared. Patient cleared off the backboard with spinal precautions and log rolled. There is no no midline tenderness of the thoracic or lumbar spine. No step-off. No skin injury seen. Back is nontender. Patient remains in C-collar. On Anticoagulants: No Related Data Home Medications Medication Instructions Recorded Confirmed insulin NPH isoph U-100 human 100 0 unit SQ BID #0 07/21/17 01/15/22 unit/mL subcutaneous suspension (Novolin N NPH U-100 Insulin isophane) Carmelo Plus Extra Strength 500 mg PO PRN PRN 07/11/19 01/15/22 acetaminophen 650 mg 650 mg PO DIRECTED 07/11/19 01/15/22 tablet,extended release (Tylenol 8 Hour) diphenhydramine HCl 25 mg capsule 25 mg PO PRN PRN 07/11/19 01/15/22 (Benadryl) fluticasone propionate 50 1 spray INTRANASAL DAILY PRN 07/11/19 01/15/22 mcg/actuation nasal spray,suspension hydrocodone 5 mg-acetaminophen 325 See Rx Instructions .ROUTE 01/15/22 01/15/22 mg tablet .COMPLEX PRN Allergies Allergy/AdvReac Type Severity Reaction Status Date / Time Sulfa (Sulfonamide Allergy Intermediate Rash Verified 07/11/19 14:37 Antibiotics) tamsulosin Allergy Intermediate Swelling Verified 07/11/19 14:37 of the Eye cetirizine [From ZYRTEC] Allergy Unknown Verified 07/11/19 13:09 Estrogens [ESTROGENS] Allergy Unknown Verified 07/11/19 13:09 ezetimibe [From ZETIA] Allergy Unknown Verified 07/11/19 13:09 Progestins [PROGESTINS] Allergy Unknown Verified 07/11/19 13:09 ranitidine [From ZANTAC] Allergy Unknown Verified 07/11/19 13:09 rosiglitazone [From AVANDIA] Allergy Unknown Verified 07/11/19 13:09 simvastatin [From ZOCOR] Allergy Unknown Verified 07/11/19 13:09 albuterol AdvReac Intermediate Anxiety Verified 07/11/19 14:37 meloxicam [From Mobic] AdvReac Intermediate Dizziness Verified 07/11/19 14:37 TRIPLIPIX Allergy Unknown Uncoded 07/11/19 13:09 Review of Systems Review of Systems Narrative: GENERAL: Denies chills, fatigue, malaise, fever, sweats. HEENT: Denies sinus pain, ear pain, sore throat RESPIRATORY: Denies dyspnea, cough CARDIOVASCULAR: Denies chest pain, palpitations GASTROINTESTINAL: Denies nausea, vomiting, abdominal pain : Denies dysuria, frequency, hematuria MUSCULOSKELETAL: denies muscle or bony pain SKIN: Denies rash, skin lesions NEUROLOGIC: Positive for weakness, numbness ROS Unobtainable: All systems reviewed & are unremarkable except as noted in HPI and below Hematologic/Lymphatic On Anticoagulants: No Patient History Medical History (Updated 01/15/22 @ 18:26 by Nilesh Goode MD) Allergic rhinitis Anxiety and depression Essential hypertension Gastric ulcer Hiatal hernia Hyperlipidemia IBS (irritable bowel syndrome) Insulin dependent diabetes mellitus Peripheral vascular disease Sciatica Surgical History (Updated 01/15/22 @ 21:25 by Yamil Llanes MD) History of carpal tunnel surgery History of gastric surgery S/P colonoscopic polypectomy Family History Mother Diabetes mellitus Myocardial infarct Renal failure Father Diabetes mellitus Parkinson disease Social History household members: spouse, family and children Smoking Status: Never smoker alcohol intake: never Smoking Status: Never smoker alcohol intake frequency: 0-2 drinks per day Substance Use Type: does not use Exam Narrative Exam Narrative: GENERAL: in no distress, not toxic not dyspneic HEAD: Normocephalic. There is tenderness to the left scalp. Hair is blood- soaked on primary survey. Will conduct secondary survey after completion of code stroke, after C-collar clearance. Examination of the scalp, dried blood removed and there is no laceration of the scalp or temporal area. EYES: Pupils equal round No scleral icterus. ENT: Mucous membranes moist. Deformity of the bridge of the nose with dried blood in nasal passage. No septal hematoma. NECK: Trachea midline. Patient in C-collar. CARDIOVASCULAR: Regular rate and rhythm without murmurs RESPIRATORY: Clear to auscultation. Breath sounds equal bilaterally. No wheezes, rales, or rhonchi. GASTROINTESTINAL: Abdomen soft, non-tender, nurse [place] at bedside for rectal exam. Patient is Hemoccult negative. Brown stool on glove. No melena. No he matochezia. EXTREMITIES: No gross deformities. BACK: No flank tenderness. NEURO: AOx4. Clear speech no facial droop light touch intact to bilateral face, slight difference in light touch in to left hand and left foot. 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 Weaker left leg raise compared to the right. SKIN: Warm and dry PSYCH: Not anxious, is cooperative Initial Vital Signs Initial Vital Signs: Vital Signs Temperature 97.9 F 01/15/22 16:34 Pulse Rate 71 01/15/22 16:34 Respiratory Rate 18 01/15/22 16:34 Blood Pressure 109/56 L 01/15/22 16:34 Pulse Oximetry 94 01/15/22 16:34 Scores NIH Stroke Scale Level of Conciousness: Alert, keenly responsive Ask month/age: Answers both questions correctly. Open/close eyes, close hand: Performs both tasks correctly Best gaze horizontal: Normal Visual bosch: No visual loss Facial palsy: Normal symetrical movement Left arm drift: Some effort against gravity, cannot maintain, drifts down to bed Right arm drift: No drift for full 10 sec Left leg drift: Some effort against gravity, cannot maintain, drifts down to bed Right leg drift: No drift for full 5 sec Limb ataxia: Present in two limbs Sensory on face/arms/legs: Mild to moderate sensory loss, can tell touch Best language: No aphasia, normal Dysarthria: Normal Extinction or inattention: Visual, tactile, auditory, spacial or personal inattention to stimuli Total NIH Stroke scale score: 8 Course Course Course Narrative: 5:[address] results called in by Dr. Lemons, no acute process on CT head without contrast. 5:25 p.m.. Spoke with tele stroke neurologist, dr boland, she will be min to video interview patient 6:00 p.m.. Spoke with neurologist dr reyes, desires for ct chest abd pelvis as pt bp slightly low, patient not endovascular candidate [id number]... s/w dr lloyd, will review results of CT and MRI Orders Ordered: Discontinued Medications Acetaminophen (Acetaminophen 325 Mg Tablet) 650 mg PO Q6HR KITA Acetaminophen (Acetaminophen 325 Mg Tablet) 650 mg PO Q6HR PRN PRN Reason: Fever/Mild Pain (1-3) Last Admin: 01/16/22 11:16 Dose: 650 mg Documented by: SAIDA Hydrocodone Bitart/Acetaminophen (Hydrocodone/Acet 5/325 Tablet) 0 tab PO Q4H PRN PRN Reason: PAIN 1-3 Hydrocodone Bitart/Acetaminophen (Hydrocodone/Acet 5/325 Tablet) 1 tab PO Q4H PRN PRN Reason: PAIN 4-10 Last Admin: 01/16/22 21:08 Dose: 1 tab Documented by: Admin: 01/16/22 17:14 Dose: 1 tab Documented by: Admin: 01/16/22 09:45 Dose: 1 tab Documented by: Admin: 01/16/22 04:14 Dose: 1 tab Documented by: Admin: 01/15/22 21:46 Dose: 1 tab Documented by: DINESH Sodium Chloride (Normal Saline 0.9%) 1,000 mls @ 150 mls/hr IV CONT KITA Last Infusion: 01/15/22 19:55 Dose: 0 mls/hr Documented by: Admin: 01/15/22 17:49 Dose: 150 mls/hr Documented by: BHASKAR Sodium Chloride (Normal Saline 0.9%) 500 mls @ 1,000 mls/hr IV BOLUS ONE Stop: 01/15/22 17:24 Last Infusion: 01/15/22 18:25 Dose: 0 mls/hr Documented by: Admin: 01/15/22 17:49 Dose: 1,000 mls/hr Documented by: BHASKAR Insulin Glargine (Insulin Glargine 100 Unit/Ml 3ml Pen) 55 unit SUBCUT DAILYCC KITA Last Admin: 01/16/22 09:43 Dose: Not Given Documented by: SAIDA Naloxone HCl (Naloxone 0.4 Mg/Ml Vial) 0.2 mg IV Q2MIN PRN PRN Reason: Opiate Reversal Ondansetron HCl (Ondansetron 4 Mg/2 Ml Inj) 4 mg IV NOW ONE Stop: 01/15/22 16:56 Last Admin: 01/15/22 18:09 Dose: 4 mg Documented by: BHASKAR Sodium Chloride (Sodium Chloride 0.9% Flush) 10 ml IV PRN PRN PRN Reason: Flush Sodium Chloride (Sodium Chloride 0.9% Flush) 10 ml IV BID KITA Last Admin: 01/16/22 20:32 Dose: 10 ml Documented by: Admin: 01/16/22 09:46 Dose: 10 ml Documented by: SAIDA Reevaluation(s) Reevaluation #1: Spoke with patient and results. They agree for admit. They understand no tPA or reversal medication due to bloody nose Consultations Consultation #1: s/w dr boland, tele stroke neurologist. She will be min by robotic and interview patient. At this time with epistaxis/nasal fracture this is contraindication to tPA Time: 17:25 Consultation #2: Spoke with neurologist again Dr. Reyes, she has interviewed patient at this time however given bloody nose and a nasal fracture and trauma no tPA to be given as high risk of bleeding. She has spoken with patient and family. Time: 17:53 Consultation #3: Spoke with Dr. Lancaster, will admit MRI has been ordered here tonight. They are still open Time: 18:37 Vital Signs Vital signs: Vital Signs - 8 hr 01/15/22 16:34 01/15/22 16:50 01/15/22 16:51 Temperature 97.9 F Pulse Rate 71 71 71 Respiratory Rate 18 Blood Pressure 109/56 L Pulse Oximetry 94 94 94 01/15/22 17:10 01/15/22 17:11 01/15/22 17:12 Temperature Pulse Rate 71 71 70 Respiratory Rate Blood Pressure Pulse Oximetry 97 99 100 01/15/22 17:13 01/15/22 17:14 01/15/22 17:15 Temperature Pulse Rate 69 69 68 Respiratory Rate 13 17 21 Blood Pressure Pulse Oximetry 100 100 100 01/15/22 17:16 01/15/22 17:17 01/15/22 17:18 Temperature Pulse Rate 69 69 69 Respiratory Rate 18 23 25 H Blood Pressure Pulse Oximetry 100 99 100 01/15/22 17:19 01/15/22 17:20 01/15/22 17:21 Temperature Pulse Rate 69 70 69 Respiratory Rate 23 23 17 Blood Pressure Pulse Oximetry 100 99 99 01/15/22 17:22 01/15/22 17:23 01/15/22 17:24 Temperature Pulse Rate 69 68 67 Respiratory Rate 18 18 16 Blood Pressure Pulse Oximetry 100 97 99 01/15/22 17:25 01/15/22 17:26 01/15/22 17:27 Temperature Pulse Rate 66 66 67 Respiratory Rate 23 22 20 Blood Pressure Pulse Oximetry 99 100 01/15/22 17:28 01/15/22 17:29 01/15/22 17:30 Temperature Pulse Rate 67 66 67 Respiratory Rate 21 18 14 Blood Pressure Pulse Oximetry 01/15/22 17:31 01/15/22 17:32 01/15/22 17:33 Temperature Pulse Rate 66 65 64 Respiratory Rate 21 16 12 Blood Pressure Pulse Oximetry 01/15/22 17:34 01/15/22 17:35 01/15/22 17:36 Temperature Pulse Rate 65 66 65 Respiratory Rate 16 23 20 Blood Pressure Pulse Oximetry 01/15/22 17:37 01/15/22 17:38 01/15/22 17:39 Temperature Pulse Rate 63 62 60 Respiratory Rate 19 18 20 Blood Pressure Pulse Oximetry 01/15/22 17:40 01/15/22 17:41 01/15/22 17:42 Temperature Pulse Rate 61 62 61 Respiratory Rate 19 22 18 Blood Pressure Pulse Oximetry 01/15/22 17:43 01/15/22 17:44 01/15/22 17:45 Temperature Pulse Rate 62 62 61 Respiratory Rate 13 21 18 Blood Pressure Pulse Oximetry 01/15/22 17:46 01/15/22 17:47 01/15/22 17:48 Temperature Pulse Rate 62 61 61 Respiratory Rate 17 16 11 L Blood Pressure Pulse Oximetry 01/15/22 17:49 01/15/22 17:50 01/15/22 17:51 Temperature Pulse Rate 61 61 62 Respiratory Rate 20 20 20 Blood Pressure Pulse Oximetry 01/15/22 17:52 01/15/22 17:53 01/15/22 17:54 Temperature Pulse Rate 62 63 62 Respiratory Rate 18 20 20 Blood Pressure Pulse Oximetry 01/15/22 17:55 01/15/22 17:56 01/15/22 17:57 Temperature Pulse Rate 65 64 64 Respiratory Rate 23 19 14 Blood Pressure 93/46 L 93/55 L Pulse Oximetry 98 98 100 01/15/22 17:58 01/15/22 17:59 01/15/22 18:00 Temperature Pulse Rate 63 65 65 Respiratory Rate 13 21 17 Blood Pressure 97/55 L Pulse Oximetry 100 100 100 01/15/22 18:01 01/15/22 18:02 01/15/22 18:03 Temperature Pulse Rate 64 66 65 Respiratory Rate 22 20 19 Blood Pressure 102/50 L Pulse Oximetry 99 100 100 01/15/22 18:04 01/15/22 18:05 01/15/22 18:06 Temperature Pulse Rate 62 63 79 Respiratory Rate 20 36 H 25 H Blood Pressure Pulse Oximetry 100 100 100 01/15/22 18:07 01/15/22 18:08 01/15/22 18:09 Temperature Pulse Rate 77 75 72 Respiratory Rate 23 21 20 Blood Pressure Pulse Oximetry 100 100 100 01/15/22 18:10 01/15/22 18:11 01/15/22 18:12 Temperature Pulse Rate 71 70 71 Respiratory Rate 15 22 17 Blood Pressure Pulse Oximetry 99 100 100 01/15/22 18:13 01/15/22 18:14 01/15/22 18:15 Temperature Pulse Rate 72 71 70 Respiratory Rate 24 18 19 Blood Pressure 120/58 L 120/60 Pulse Oximetry 100 100 100 01/15/22 18:16 01/15/22 18:17 01/15/22 18:18 Temperature Pulse Rate 69 70 71 Respiratory Rate 15 20 21 Blood Pressure Pulse Oximetry 100 100 100 01/15/22 18:19 01/15/22 18:20 01/15/22 18:21 Temperature Pulse Rate 71 70 70 Respiratory Rate 18 18 17 Blood Pressure Pulse Oximetry 100 100 MDM - Neuro Symptoms/Deficit Differential Diagnosis Differential diagnosis: Likely subarachnoid hemorrhage, cerebrovascular accident and transient cerebral ischemia Lab Data Result diagrams: 01/16/22 05:25 01/16/22 05:25 Labs: Lab Results 01/15/22 01/15/22 Range/Units 17:17 17:17 WBC 8.5 (4.5-11.0) X10^3/uL RBC 3.13 L (4.0-5.2) X10^6/uL Hgb 10.7 L (12.0-16.0) g/dL Hct 31.5 L (36-46) % MCV 100.5 H (80-100) fL MCH 34.1 H (26-34) PG MCHC 33.9 (30-36) % RDW 13.5 (11.6-14.8) % Plt Count 213 (150-400) X10^3/uL Neut % (Auto) 56.4 (50-75) % Lymph % (Auto) 35.2 (25-40) % [place] % (Auto) 5.5 (3-14) % Eos % (Auto) 2.3 (2-4) % Baso % (Auto) 0.6 (0-2) % Neut # (Auto) 4800 (2214-7657) /uL Lymph # (Auto) 3000 (9819-8270) /uL [place] # (Auto) 500 (0-900) /uL Eos # (Auto) 200 (0-450) /uL Baso # (Auto) 0 (0-100) /uL Sodium 138 (137-145) mmol/L Potassium 3.7 (3.4-5.1) mmol/L Chloride 107 (98-107) mmol/L Carbon Dioxide 27 (22-32) mmol/L BUN 12 (7-17) mg/dL Creatinine 0.99 (0.52-1.04) mg/dL Estimated GFR 60 (>60) mL/min BUN/Creatinine Ratio 12.1 (6-22) Glucose 182 H (80-110) mg/dL Calcium 8.4 (8.4-10.2) mg/dL Total Bilirubin 0.3 (0.2-1.3) mg/dL AST 26 (14-36) IU/L ALT 17 (<35) IU/L Alkaline Phosphatase 41 (38-126) U/L Total Creatine Kinase 36 (30-135) U/L CK-MB (CK-2) TNP CK-MB (CK-2) Rel Index TNP Troponin I < 0.012 (0.01-0.034) ng/mL Total Protein 5.4 L (6.3-8.2) g/dL Albumin 2.8 L (3.5-5.0) g/dL Globulin 2.6 (1.7-4.1) g/dL Albumin/Globulin Ratio 1.1 (1.0-2.8) Ethyl Alcohol < 10 ( - 10) mg/dL Point of Care Testing Glucose POC [address] scan - head: Radiologist's Impression: [address] [address] [address] Scan Report Signed Patient: Brittnee Villa MR#: [id number] : 1945 Acct:[id number] Age/Sex: 76 / F Date of Service: 01/15/22 Loc: ED Accession Number: [id number] ?? Procedure: CT Stroke Ordering Provider: Nilesh Goode MD PROCEDURE:? CT STROKE ? INDICATIONS:? Left-sided weakness ? TECHNIQUE:? Noncontrast 4.5 mm thick angled axial sections acquired from the foramen magnum to the vertex, with coronal reformats.? For radiation dose reduction, the following was used:? automated exposure control, adjustment of mA and/or kV according to patient size.? ? COMPARISON:? None. ? FINDINGS:? Image quality:? Excellent.? ? CSF spaces:? Basal cisterns are patent.? No extra-axial fluid collections.? Ventricles are normal in size and shape.? ? Brain:? No midline shift.? No intracranial masses or hemorrhage.? Small area of hypodensity in the right basal ganglia likely due to prior infarct.? No area of hypodensity in a large vascular distribution to suggest acute infarction. Periventricular hypodensity consistent with chronic microvascular ischemic change. Age-related parenchymal loss. ? Skull and face:? Calvarium and visualized facial bones are intact, without suspicious lesions.? Suspect prior nasal bone fracture.? ? Sinuses:? Visualized sinuses and mastoids are clear.? ? IMPRESSION:? No acute intracranial abnormality. ? Prior right basal ganglia lacunar infarct. ? This study fulfills neurological imaging criteria for inclusion or exclusion of acute stroke therapies based on available published neurological imaging guidelines.? ? ? Comment: Findings were discussed with Nilesh Goode at the time of dictation. ? Dictated by: Erlin Lemons M.D. on 01/15/2022 at 17:07 ? ? Approved by: Erlin Lemons M.D. on 01/15/2022 at 17:14 ? CTA - brain/neck: Radiologist's Impression: [address] [address] [address] Scan Report Signed Patient: Brittnee Villa MR#: [id number] : 1945 Acct:[id number] Age/Sex: 76 / F Date of Service: 01/15/22 Loc: ED Accession Number: [id number] ?? Procedure: CT angio head and neck Ordering Provider: Nilesh Goode MD PROCEDURE:? CT ANGIO HEAD AND NECK ? INDICATIONS:? Left-sided weakness ? TECHNIQUE:? Noncontrast images were performed earlier in the day and not repeated.? ? After the administration of intravenous contrast, 1 mm thick sections acquired from the aortic arch through the [place] of Schmitt.? Post-contrast 4.5 mm thick sections then re- acquired from the foramen magnum to the vertex.? 3-dimensional erlxguw-jxjhzlmdr-cxochmvnwm (MIP) and/or volume rendering reformats were acquired of the central intracranial vasculature and neck separately. For radiation dose reduction, the following was used:? automated exposure control, adjustment of mA and/or kV according to patient size.? ? COMPARISON:? [facility], CT, CT FACIAL BONES WO CON, 01/15/2022, 16:55.? [facility], CT, CT CERVICAL SPINE WO CON, 01/15/2022, 16:55.? [facility], CT, CT STROKE, 01/15/2022, 16:55. ? FINDINGS:? Image quality:? Limited by bolus timing, with venous contamination. ? BRAIN:? CSF spaces:? Ventricles are normal in size and shape.? Basal cisterns are patent.? No extra-axial fluid collections.? ? Brain:? No midline shift.? No intracranial bleeds or masses.? Shearer-white matter interface appears intact.? ? Skull and face:? Nasal bone fractures are seen, with associated soft tissue laceration with gas and swelling..? No calvarial fracture is seen.? Orbits appear normal.? Incidental note is made of hyperostosis frontalis. This is not considered to be pathologic in a woman of this age. ? Sinuses:? Sinuses and mastoids are clear.? ? HEAD CT ANGIOGRAPHY:? Anterior circulation:? Intracranial internal carotid arteries are normal in size and flow.? The flow within the paired anterior cerebral arteries is normal and symmetric.? The flow within the middle cerebral arteries is normal and symmetric.? The anterior communicating artery is seen.? No aneurysms are seen.? ? Posterior circulation:? Visualized portions of the vertebral arteries demonstrate normal caliber, and join to form a normal appearing basilar artery.? Flow within the posterior cerebral arteries is normal and symmetric.? No aneurysms are seen.? ? NECK CT ANGIOGRAPHY:? Carotid system:? The great vessels demonstrate a conventional anatomy as they arise from the aortic arch.? The origins of the common carotid arteries appear patent.? The common carotid arteries demonstrate normal caliber and courses.? The bifurcation regions demonstrate atherosclerotic calcification and irregularity.? There is 60-70% stenosis seen involving the right proximal internal carotid artery.? Approximately 40% stenosis can be seen involving left proximal internal carotid artery. The more distal internal carotid arteries demonstrate normal course and caliber.? ? Posterior circulation:? The origins of the vertebral arteries both appear widely patent.? The more superior extracranial portions of both vertebral arteries also demonstrate normal courses and calibers.? The left vertebral artery is dominant to the right. ? Soft tissues:? Visualized neck soft tissues demonstrate no suspicious abnormalities.? ? Bones:? No suspicious bony lesions.? Visualized cervical spine appears normally aligned.? Moderate cervical spine degenerative changes are seen. ? ? ? IMPRESSION:? No significant intracranial arterial abnormality is seen.? ? There is 60-70% stenosis seen involving the right proximal internal carotid artery. ? No significant vertebral artery abnormality is seen. ? Nasal bone fractures can be seen, with associated soft tissue laceration. ? Any quantitative measurements of stenosis were performed using NASCET criteria.? ? ? Dictated by: Guillermo Weller M.D. on 01/15/2022 at 16:26 ? ? Approved by: Guillermo Weller M.D. on 01/15/2022 at 16:29 ? CT face: Radiologist's Impression: [address] [address] [address] Scan Report Signed Patient: Brittnee Villa MR#: [id number] : 1945 Acct:[id number] Age/Sex: 76 / F Date of Service: 01/15/22 Loc: ED Accession Number: [id number] ?? Procedure: CT facial bones wo con Ordering Provider: Nilesh Goode MD PROCEDURE:? CT FACIAL BONES WO CON ? INDICATIONS:? Fall/injury ? TECHNIQUE:? Noncontrast 2.5 mm thick axial images acquired from the mandible through the frontal sinuses, with coronal and sagittal reformatting.? For radiation dose reduction, the following was used:? automated exposure control, adjustment of mA and/or kV according to patient size.? ? COMPARISON:? [facility], CT, CT STROKE, 01/15/2022, 16:55.? [facility], CT, CT ANGIO HEAD AND NECK, 01/15/2022, 17:04.? [facility], CT, CT CERVICAL SPINE WO CON, 01/15/2022, 16:55. ? FINDINGS:? Image quality:? Excellent.? ? Bones and teeth:? Mildly displaced nasal bone fractures are seen, which are deviated to the left.? The anterior nasal septum is also fractured. ? Orbital correa are intact.? Sinus correa show no fracture or deformity.? Visualized portions of the mandible demonstrate no fractures or subluxation.? Zygomatic arches are intact.? Pterygoid plates are intact.? Visualized portions of the skull base and auditory canals are intact.? ? Incidental note is made of hyperostosis frontalis. This is not considered to be pathologic in a woman of this age. ? Generalized thickening can be seen of the skull base, with a thickened and chalky appearance. ? Sinuses:? Mild laceration with soft tissue gas can be seen involving the nose.? Soft tissue swelling of the area can be seen.? Paranasal sinuses are aerated, without fluid levels, mucosal thickening, or mucoceles.? Mastoid air cells are aerated.? ? Soft tissues:? No edema, masses, or fluid collections.? No enlarged lymph nodes.? No soft tissue lacerations or debris.? ? Vascular:? Visualized vascular structures appear normal in the absence of contrast.? Bony vascular foramina and canals are intact.? IMPRESSION:? Fractures of the nasal bones, with fracture of the nasal septum also seen. ? Associated soft tissue swelling with soft tissue laceration and gas can be seen. ? Generalized abnormal appearance of the bones of the skull base, with a thickened and chalky appearance.? Please consider patches disease. ? ? ? Dictated by: Guillermo Weller M.D. on 01/15/2022 at 16:20 ? ? Approved by: Guillermo Weller M.D. on 01/15/2022 at 16:23 ? ECG Data Interpretation: Normal sinus rhythm rate [address] elevation or depression MDM Narrative Medical decision making narrative: Appropriate for admission. Patient being admitted for stroke treatment. I did review with tele stroke neurologist. Reviewed patient and family. Also with hospitalists, agree for admit. Discharge Plan Departure Patient Disposition: Admitted As Inpatient Clinical Impression: Acute stroke due to ischemia, Closed fracture nasal bone Admit Date/Time: 01/15/22 18:38 Admit Provider: Erwin Lancaster
[2022-01-15 17:25] LABS: Add Manual Diff / Slide Review NO; Basophils Absolute Auto 0 /uL (0-100); Basophils Percent Auto 0.6 % (0-2); Eosinophils Absolute Auto 200 /uL (0-450); Eosinophils Percent Auto 2.3 % (2-4); Hematocrit 31.5 % (36-46); Hemoglobin 10.7 g/dL (12.0-16.0); Lymphocytes Absolute Auto 3000 /uL (1100-4500); Lymphocytes Percent Auto 35.2 % (25-40); Mean Corpuscular HGB Conc 33.9 % (30-36); Mean Corpuscular Hemoglobin 34.1 PG (26-34); Mean Corpuscular Volume 100.5 fL (80-100); Monocytes Absolute Auto 500 /uL (0-900); Monocytes Percent Auto 5.5 % (3-14); Neutrophils Absolute Auto 4800 /uL (1500-7000); Neutrophils Percent Auto 56.4 % (50-75); Platelet Count 213 X10^3/uL (150-400); Red Blood Cell Count 3.13 X10^6/uL (4.0-5.2); Red Cell Distribution Width 13.5 % (11.6-14.8); White Blood Cell Count 8.5 X10^3/uL (4.5-11.0)
[2022-01-15 17:37] LABS: Alanine Aminotransferase 17 IU/L (<35); Albumin 2.8 g/dL (3.5-5.0); Albumin Globulin Ratio 1.1 (1.0-2.8); Alkaline Phosphatase 41 U/L (38-126); Aspartate Aminotransferase 26 IU/L (14-36); BUN Creatinine Ratio 12.1 (6-22); Bilirubin Total 0.3 mg/dL (0.2-1.3); Blood Urea Nitrogen 12 mg/dL (7-17); Calcium 8.4 mg/dL (8.4-10.2); Carbon Dioxide 27 mmol/L (22-32); Chloride 107 mmol/L (98-107); Creatine Kinase 36 U/L (30-135); Estimated Glomerular Filt Rate 60 mL/min (>60); Ethanol (ETOH) < 10 mg/dL; Globulin 2.6 g/dL (1.7-4.1); Glucose 182 mg/dL (80-110); HEMOLYSIS < 15 (0-50); Potassium 3.7 mmol/L (3.4-5.1); Sodium 138 mmol/L (137-145); Total Protein 5.4 g/dL (6.3-8.2)
[2022-01-15 17:49] LABS: Troponin I < 0.012 ng/mL (0.01-0.034)
[2022-01-15] MEDS: SODIUM CHLORIDE 0.9% 1,000 ML 150 ML IV (17:49)
[2022-01-15] MEDS: SODIUM CHLORIDE 0.9% 500 ML 1000 ML IV (17:49)
[2022-01-15] MEDS: ONDANSETRON 4 MG/2 ML INJ IV (18:09)
--- NOTE | 2022-01-15 18:10 | DI.CT.S_ITS ---
PROCEDURE: CT CHEST ABD PEL W CON INDICATIONS: r/o bleed TECHNIQUE: After the administration of intravenous contrast, 5 mm thick sections acquired from the lung apices to the symphysis. 2.5 mm thick coronal and sagittal reformats were acquired. Additional 7 mm thick coronal maximum intensity projection (MIP) reformats acquired through the lungs. Optional 10-minute delayed imaging may be performed from the kidneys to the bladder. For radiation dose reduction, the following was used: automated exposure control, adjustment of mA and/or kV according to patient size. COMPARISON: None. FINDINGS: Image quality: Excellent. CHEST: Lungs: No pulmonary contusions or lacerations. No acute airspace opacities. No pneumothorax or hemothorax. Central and peripheral airways appear patent and normal in caliber. Mediastinum: No mediastinal hematomas. Heart size is enlarged. No pericardial effusion. Thoracic aorta and pulmonary arteries demonstrate normal size and enhancement. No mediastinal or hilar adenopathy. Esophagus is normal in caliber. Mild hiatal hernia. Chest wall: No rib fractures. No subcutaneous emphysema. No axillary or supraclavicular adenopathy. Thyroid gland is unremarkable. ABDOMEN: Solid organs: Liver is normal in size and enhancement, without lacerations. Diffuse steatosis is present. Gallbladder has been removed.. Biliary system is non-dilated. Pancreas enhances normally, without transection. Spleen is normal in size and enhancement, without lacerations. No adrenal hematomas. Both kidneys enhance normally, without hydronephrosis or lacerations. Peritoneum and bowel: No free fluid or air. Unenhanced bowel loops demonstrate normal wall thickness and caliber. Colonic diverticula are present. Nodes and vessels: No retroperitoneal or mesenteric adenopathy. Aorta demonstrates prominent atherosclerotic change and luminal narrowing within the distal segment, with the lumen measuring 1.1 cm. Miscellaneous: No ventral hernias. PELVIS: Genitourinary: Bladder wall thickness is normal. Miscellaneous: No inguinal hernias or adenopathy. Bones: Pelvic ring and hip joints appear intact. No vertebral compression fractures. IMPRESSION: No visualized osseous or visceral traumatic injury. No visualized intra-abdominal or pelvic hemorrhage. Dictated by: Gabriela De La Cruz M.D. on 01/15/2022 at 18:55 Approved by: Gabriela De La Cruz M.D. on 01/15/2022 at 18:59
--- NOTE | 2022-01-15 18:22 | PC.NURSE ---
Assisted Md with rectal exam
--- NOTE | 2022-01-15 18:35 | DI.MRI.S_ITS ---
PROCEDURE: MR HEAD/BRAIN WO CON INDICATIONS: Left-sided weakness TECHNIQUE: Non-contrast axial T1 spin echo, axial T2 fast spin echo, sagittal and axial FLAIR, coronal T2 fast spin echo, axial gradient echo, axial diffusion and ADC through the brain. COMPARISON: [facility], CT, CT STROKE, 01/15/2022, 16:55. FINDINGS: Image quality: Excellent. CSF spaces: Ventricles appear symmetric in size and shape. Basal cisterns are patent. No extra-axial fluid collections. Brain: No intracranial bleeds or mass effects. There is cerebral volume loss for age. There are mild periventricular and deep white matter chronic small vessel ischemic changes. Brainstem appears normal. Diffusion-weighted images show no acute ischemic insults. No chronic ischemic insults. There is a focal moderate-sized lacunar infarct in the right basal ganglia and ex vacuo dilatation of the adjacent frontal horn right lateral ventricle. Skull and face: Calvarial bone marrow is normal in signal. Orbits are normal. Sinuses: Sinuses and mastoids are clear. IMPRESSION: 1. No MR evidence of acute ischemia. 2. Remote lacunar infarct in the right basal ganglia with adjacent ex vacuo dilatation. 3. Otherwise mild chronic microvascular ischemic changes seen throughout the brain. Dictated by: Jennifer Goode M.D. on 01/15/2022 at 20:28 Approved by: Jennifer Goode M.D. on 01/15/2022 at 20:34
--- NOTE | 2022-01-15 18:56 | PC.NURSE ---
performed teledoc with patient
[2022-01-15 19:12] LABS: COVID19 -Nasal RAPID Negative (Negative)
--- NOTE | 2022-01-15 20:51 | P.HP_ITS ---
History of Present Illness History of Present Illness Date Patient Seen: 01/15/22 Time Patient Seen: 20:51 Chief complaint: Unwitnessed fall Narrative: This is a 76-year-old female with cardiomyopathy, anxiety, depression, hypertension and type 2 diabetes mellitus who became acutely vertiginous and fell in her garage on the ramp today. She fractured her nose, causing a large nose bleed and on evaluation in the emergency department was noted to have some left-sided weakness. She has undergone extensive imaging including face CT, head and neck CTA, chest/abdomen/pelvis CT, brain CT and MRI and C-spine CT all of these have been read except for the C-spine CT. This does not appear to show any fracture on my review of the films and on initial verbal reports. She now is experiencing upper extremity bilateral weakness comparatively more prominent than lower extremity weakness. Some of this appears to be volitional but is is still quite concerning for anterior or central cord syndrome. Her exam is variable/unreliable. She insists she is unable to move her arms but when her arms are raised in the bed she is able to hold them up momentarily. 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 Her reflexes are not remarkable. Her lower extremity exam is notable for some weakness but no complaint of weakness. She has quite a bit of dried blood around her nose where the nasal fractures are. Patient History Medical History (Updated 01/15/22 @ 18:26 by Nilesh Goode MD) Allergic rhinitis Anxiety and depression Essential hypertension Gastric ulcer Hiatal hernia Hyperlipidemia IBS (irritable bowel syndrome) Insulin dependent diabetes mellitus Peripheral vascular disease Sciatica Surgical History (Updated 01/15/22 @ 21:25 by Yamil Llanes MD) History of carpal tunnel surgery History of gastric surgery S/P colonoscopic polypectomy Family & Social History Family History Mother Diabetes mellitus Myocardial infarct Renal failure Father Diabetes mellitus Parkinson disease Social History: household members spouse,family Prior Living Arrangements House Safety & Behavioral: Feels Safe in Current Yes Environment Been Physically Hurt or No Threatened By a Person Tobacco & Substance use: Smoking Status Never smoker alcohol intake never alcohol intake frequency 0-2 drinks per day Substance Use Type does not use Meds Home Medications and Allergies Home Medications Medication Instructions Recorded Confirmed Type insulin NPH isoph U-100 human 100 0 unit SQ BID #0 07/21/17 01/15/22 History unit/mL subcutaneous suspension (Novolin N NPH U-100 Insulin isophane) Carmelo Plus Extra Strength 500 mg PO PRN PRN 07/11/19 01/15/22 History acetaminophen 650 mg 650 mg PO DIRECTED 07/11/19 01/15/22 History tablet,extended release (Tylenol 8 Hour) diphenhydramine HCl 25 mg capsule 25 mg PO PRN PRN 07/11/19 01/15/22 History (Benadryl) fluticasone propionate 50 1 spray INTRANASAL DAILY PRN 07/11/19 01/15/22 History mcg/actuation nasal spray,suspension hydrocodone 5 mg-acetaminophen 325 See Rx Instructions .ROUTE 01/15/22 01/15/22 History mg tablet .COMPLEX PRN Allergies Allergy/AdvReac Type Severity Reaction Status Date / Time Sulfa (Sulfonamide Allergy Intermediate Rash Verified 07/11/19 14:37 Antibiotics) tamsulosin Allergy Intermediate Swelling Verified 07/11/19 14:37 of the Eye cetirizine [From ZYRTEC] Allergy Unknown Verified 07/11/19 13:09 Estrogens [ESTROGENS] Allergy Unknown Verified 07/11/19 13:09 ezetimibe [From ZETIA] Allergy Unknown Verified 07/11/19 13:09 Progestins [PROGESTINS] Allergy Unknown Verified 07/11/19 13:09 ranitidine [From ZANTAC] Allergy Unknown Verified 07/11/19 13:09 rosiglitazone [From AVANDIA] Allergy Unknown Verified 07/11/19 13:09 simvastatin [From ZOCOR] Allergy Unknown Verified 07/11/19 13:09 albuterol AdvReac Intermediate Anxiety Verified 07/11/19 14:37 meloxicam [From Mobic] AdvReac Intermediate Dizziness Verified 07/11/19 14:37 TRIPLIPIX Allergy Unknown Uncoded 07/11/19 13:09 Review of Systems Review of Systems Narrative: Positive for nose bleed, shoulder pain bilateral, upper extremity weakness Negative for fevers, chills, sweats, coughing, neck pain, headache, chest pain, abdominal pain, rectal or bladder bleeding, dysuria, rash, seizures, new allergies. Exam Vital Signs (past 8 hours): - 01/15/22 16:34 01/15/22 16:50 01/15/22 16:51 Temperature 97.9 F Pulse Rate 71 71 71 Respiratory Rate 18 Blood Pressure 109/56 L Pulse Oximetry 94 94 94 01/15/22 17:10 01/15/22 17:11 01/15/22 17:12 Temperature Pulse Rate 71 71 70 Respiratory Rate Blood Pressure Pulse Oximetry 97 99 100 01/15/22 17:13 01/15/22 17:14 01/15/22 17:15 Temperature Pulse Rate 69 69 68 Respiratory Rate 13 17 21 Blood Pressure Pulse Oximetry 100 100 100 01/15/22 17:16 01/15/22 17:17 01/15/22 17:18 Temperature Pulse Rate 69 69 69 Respiratory Rate 18 23 25 H Blood Pressure Pulse Oximetry 100 99 100 01/15/22 17:19 01/15/22 17:20 01/15/22 17:21 Temperature Pulse Rate 69 70 69 Respiratory Rate 23 23 17 Blood Pressure Pulse Oximetry 100 99 99 01/15/22 17:22 01/15/22 17:23 01/15/22 17:24 Temperature Pulse Rate 69 68 67 Respiratory Rate 18 18 16 Blood Pressure Pulse Oximetry 100 97 99 01/15/22 17:25 01/15/22 17:26 01/15/22 17:27 Temperature Pulse Rate 66 66 67 Respiratory Rate 23 22 20 Blood Pressure Pulse Oximetry 99 100 01/15/22 17:28 01/15/22 17:29 01/15/22 17:30 Temperature Pulse Rate 67 66 67 Respiratory Rate 21 18 14 Blood Pressure Pulse Oximetry 01/15/22 17:31 01/15/22 17:32 01/15/22 17:33 Temperature Pulse Rate 66 65 64 Respiratory Rate 21 16 12 Blood Pressure Pulse Oximetry 01/15/22 17:34 01/15/22 17:35 01/15/22 17:36 Temperature Pulse Rate 65 66 65 Respiratory Rate 16 23 20 Blood Pressure Pulse Oximetry 01/15/22 17:37 01/15/22 17:38 01/15/22 17:39 Temperature Pulse Rate 63 62 60 Respiratory Rate 19 18 20 Blood Pressure Pulse Oximetry 01/15/22 17:40 01/15/22 17:41 01/15/22 17:42 Temperature Pulse Rate 61 62 61 Respiratory Rate 19 22 18 Blood Pressure Pulse Oximetry 01/15/22 17:43 01/15/22 17:44 01/15/22 17:45 Temperature Pulse Rate 62 62 61 Respiratory Rate 13 21 18 Blood Pressure Pulse Oximetry 01/15/22 17:46 01/15/22 17:47 01/15/22 17:48 Temperature Pulse Rate 62 61 61 Respiratory Rate 17 16 11 L Blood Pressure Pulse Oximetry 01/15/22 17:49 01/15/22 17:50 01/15/22 17:51 Temperature Pulse Rate 61 61 62 Respiratory Rate 20 20 20 Blood Pressure Pulse Oximetry 01/15/22 17:52 01/15/22 17:53 01/15/22 17:54 Temperature Pulse Rate 62 63 62 Respiratory Rate 18 20 20 Blood Pressure Pulse Oximetry 01/15/22 17:55 01/15/22 17:56 01/15/22 17:57 Temperature Pulse Rate 65 64 64 Respiratory Rate 23 19 14 Blood Pressure 93/46 L 93/55 L Pulse Oximetry 98 98 100 01/15/22 17:58 01/15/22 17:59 01/15/22 18:00 Temperature Pulse Rate 63 65 65 Respiratory Rate 13 21 17 Blood Pressure 97/55 L Pulse Oximetry 100 100 100 01/15/22 18:01 01/15/22 18:02 01/15/22 18:03 Temperature Pulse Rate 64 66 65 Respiratory Rate 22 20 19 Blood Pressure 102/50 L Pulse Oximetry 99 100 100 01/15/22 18:04 01/15/22 18:05 01/15/22 18:06 Temperature Pulse Rate 62 63 79 Respiratory Rate 20 36 H 25 H Blood Pressure Pulse Oximetry 100 100 100 01/15/22 18:07 01/15/22 18:08 01/15/22 18:09 Temperature Pulse Rate 77 75 72 Respiratory Rate 23 21 20 Blood Pressure Pulse Oximetry 100 100 100 01/15/22 18:10 01/15/22 18:11 01/15/22 18:12 Temperature Pulse Rate 71 70 71 Respiratory Rate 15 22 17 Blood Pressure Pulse Oximetry 99 100 100 01/15/22 18:13 01/15/22 18:14 01/15/22 18:15 Temperature Pulse Rate 72 71 70 Respiratory Rate 24 18 19 Blood Pressure 120/58 L 120/60 Pulse Oximetry 100 100 100 01/15/22 18:16 01/15/22 18:17 01/15/22 18:18 Temperature Pulse Rate 69 70 71 Respiratory Rate 15 20 21 Blood Pressure Pulse Oximetry 100 100 100 01/15/22 18:19 01/15/22 18:20 01/15/22 18:21 Temperature Pulse Rate 71 70 70 Respiratory Rate 18 18 17 Blood Pressure Pulse Oximetry 100 100 Oxygen Delivery Method Room Air Narrative Exam Narrative: She is alert and oriented x3. No apparent distress She says she is very tired and is minimally cooperative with exam. Pupils are equally round and reactive to light and accommodation. Extraocular muscles are intact Sclerae are pink and nonicteric She does have bilateral billy orbital bruising consistent with bilateral black eyes? around the area of her nasal bridge fractures. No lymph nodes are felt head, neck, supraclavicular area There is no thyromegaly There is a lot of blood around the entrance to both nostrils dried without recent bleeding. Throat looks normal There is no carotid bruits heard JVD is less than 6 cm Heart is regular rate and rhythm without murmur lungs are clear to auscultation bilateral Abdomen is soft, bowel sounds positive nontender no organomegaly. Extremities have no ankle edema Skin has no rash or jaundice. She does have bruising around both medial eyes. Neurological exam: There is no tremor Cranial nerves 2-12 test intact Babinski's are equivocal bilaterally Reflexes are symmetrically hypoactive both upper and lower extremities Motor function in the lower extremities is 3/5 and appears to be volitional/affected by her fatigue. Motor function in the upper extremities is 2/5 at also appears to be somewhat volitional and unreliable the on testing. She insists that she is unable to squeeze her fingers or lift her arms. This appears to be symmetric. When I lift her arms she is able to to to momentarily hold them above the bed, bent at the elbow before dropping them to the bed again. Sensation to touch appears to be symmetric bilaterally. Objective Imaging MRI - head: Radiologist's impression: FINDINGS:? Image quality:? Excellent.? ? CSF spaces:? Ventricles appear symmetric in size and shape.? Basal cisterns are patent.? No extra-axial fluid collections.? ? Brain:? No intracranial bleeds or mass effects.? There is cerebral volume loss for age.? There are mild periventricular and deep white matter chronic small vessel ischemic changes.? Brainstem appears normal.? Diffusion-weighted images show no acute ischemic insults.? No chronic ischemic insults.? There is a focal moderate-sized lacunar infarct in the right basal ganglia and ex vacuo dilatation of the adjacent frontal horn right lateral ventricle.? ? Skull and face:? Calvarial bone marrow is normal in signal.? Orbits are normal.? ? Sinuses:? Sinuses and mastoids are clear.? ? IMPRESSION:? ? 1. No MR evidence of acute ischemia. ? 2. Remote lacunar infarct in the right basal ganglia with adjacent ex vacuo dilatation. ? 3. Otherwise mild chronic microvascular ischemic changes seen throughout the brain.? ? ? Dictated by: Jennifer Goode M.D. on 01/15/2022 at 20:28 ? CT Neck: Radiologist's impression: FINDINGS:? Image quality:? Excellent.? ? Bones and teeth:? Mildly displaced nasal bone fractures are seen, which are deviated to the left.? The anterior nasal septum is also fractured. ? Orbital correa are intact.? Sinus correa show no fracture or deformity.? Visualized portions of the mandible demonstrate no fractures or subluxation.? Zygomatic arches are intact.? Pterygoid plates are intact.? Visualized portions of the skull base and auditory canals are intact.? ? Incidental note is made of hyperostosis frontalis. This is not considered to be pathologic in a woman of this age. ? Generalized thickening can be seen of the skull base, with a thickened and chalky appearance. ? Sinuses:? Mild laceration with soft tissue gas can be seen involving the nose.? Soft tissue swelling of the area can be seen.? Paranasal sinuses are aerated, without fluid levels, mucosal thickening, or mucoceles.? Mastoid air cells are aerated.? ? Soft tissues:? No edema, masses, or fluid collections.? No enlarged lymph nodes.? No soft tissue lacerations or debris.? ? Vascular:? Visualized vascular structures appear normal in the absence of contrast.? Bony vascular foramina and canals are intact.? IMPRESSION:? Fractures of the nasal bones, with fracture of the nasal septum also seen. ? Associated soft tissue swelling with soft tissue laceration and gas can be seen. ? Generalized abnormal appearance of the bones of the skull base, with a thickened and chalky appearance.? Please consider patches disease. ? ? ? Dictated by: Guillermo Weller M.D. on 01/15/2022 at 16:20? Labs Result Diagrams: 01/15/22 17:17 01/15/22 17:17 Labs: Laboratory Results - last 24 hr 01/15/22 01/15/22 01/15/22 17:17 17:17 18:40 WBC 8.5 RBC 3.13 L Hgb 10.7 L Hct 31.5 L MCV 100.5 H MCH 34.1 H MCHC 33.9 RDW 13.5 Plt Count 213 Neut % (Auto) 56.4 Lymph % (Auto) 35.2 Weber % (Auto) 5.5 Eos % (Auto) 2.3 Baso % (Auto) 0.6 Neut # (Auto) 4800 Lymph # (Auto) 3000 Weber # (Auto) 500 Eos # (Auto) 200 Baso # (Auto) 0 Sodium 138 Potassium 3.7 Chloride 107 Carbon Dioxide 27 BUN 12 Creatinine 0.99 Estimated GFR 60 BUN/Creatinine Ratio 12.1 Glucose 182 H Calcium 8.4 Total Bilirubin 0.3 AST 26 ALT 17 Alkaline Phosphatase 41 Total Creatine Kinase 36 CK-MB (CK-2) TNP CK-MB (CK-2) Rel Index TNP Troponin I < 0.012 Total Protein 5.4 L Albumin 2.8 L Globulin 2.6 Albumin/Globulin Ratio 1.1 Ethyl Alcohol < 10 SARS-CoV-2 (PCR) Negative Assessment & Plan Assessment & Plan narrative: This is a 76-year-old female with cardiomyopathy, anxiety, depression, hypertension and type 2 diabetes mellitus who became acutely vertiginous and fell in her garage on the ramp today. She fractured her nose, causing a large nose bleed and on evaluation in the emergency department was noted to have some left-sided weakness. She has undergone extensive imaging including face CT, head and neck CTA, chest/abdomen/pelvis CT, brain CT and MRI and C-spine CT all of these have been read except for the C-spine CT. This does not appear to show any fracture on my review of the films and on initial verbal reports. Bilateral upper extremity weakness, present on admission. Active. -there is concern for anterior cord syndrome and central cord syndrome. -the cervical spine CT official report is not available yet. The initial report was that she did not have any fracture. -the exam findings of relatively greater hand and arm weakness compared with leg weakness can occur after an injury to the corticospinal tracts in the medulla or the cervical cord. -the variability of the exam and unreliability over serial exams make it unlikely that she needs a cervical decompression or transfer for neurosurgical consultation at this late hour. -that will be reconsidered if her symptoms worsen and of course again when rounding in the morning. Nasal fractures, present on admission. Active. -the epistaxis has stopped -will plan referral for ENT evaluation as an outpatient. Remote right basal ganglia lacunar infarct, present on admission. Chronic. -no clear symptoms of this apparent previous CVA. 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 Type 2 diabetes mellitus, present on admission. Active. -continue home insulin regimen of Lantus 55 units in the morning and a variable dose in the evening. Anxiety/depression, present on admission. Chronic. -no current treatment Her is her backup decision maker. SCD for DVT prevention and avoid heparin/Lovenox due to recent epistaxis. Time Spent With Patient Critical Care time: I spent a total of [] minutes of critical care time on this patient's care t donavon; this time is exclusive of procedural time. Quality VTE Deep Vein Thrombosis/Pulmonary Embolism Present on Admission: No
[2022-01-15] MEDS: HYDROCODONE/ACET 5/325 TABLET 1 TAB PO (21:46)
--- NOTE | 2022-01-15 22:17 | PC.ADMIT ---
Addendum entered by Kathleen Thomas R.N. 01/16/22 06:18: Earlier had told RN she was continent of urine prior to admission but has been mostly incontinent since arrival to floor; denies dysuria. Original Note: Patient admitted to room 221 from ER/MRI per stretcher and transferred into bed using slider board. Patient is alert and oriented. Does have NIH of 8. Is able to lift all extremities except left arm off bed but is unable to make national account representative with either hand. Breath sounds CTA with RA sat of 97%. HRR with telemetry reading of SR. BP low at 97/42. Did complain of nausea upon arrival to floor and GAURANG Brewer, reported patient had a 100cc emesis during admission assessment. BT present and abdomen is soft; history of IBS with some fecal incontinence reported. Denies urinary problems and is using bedpan due to weakness in all extremities. Is able to lift buttocks up off bed but needing assistance to reposition. Complained of bilateral shoulder pain which she states is chronic and was medicated with Vicodin. Bilateral calf SCD's were applied. Fall risk score is high and bed alarm is activated. [address] Admission Note: The patient,Brittnee Villa,76 y/o, was given written information regarding hospital policies, unit procedures and contact persons. Patient's smoking status: Never smoker. Vital Signs - 8 hr 01/15/22 16:34 01/15/22 16:50 01/15/22 16:51 Temperature 97.9 F Pulse Rate 71 71 71 Respiratory Rate 18 Blood Pressure 109/56 L Pulse Oximetry 94 94 94 01/15/22 17:10 01/15/22 17:11 01/15/22 17:12 Temperature Pulse Rate 71 71 70 Respiratory Rate Blood Pressure Pulse Oximetry 97 99 100 01/15/22 17:13 01/15/22 17:14 01/15/22 17:15 Temperature Pulse Rate 69 69 68 Respiratory Rate 13 17 21 Blood Pressure Pulse Oximetry 100 100 100 01/15/22 17:16 01/15/22 17:17 01/15/22 17:18 Temperature Pulse Rate 69 69 69 Respiratory Rate 18 23 25 H Blood Pressure Pulse Oximetry 100 99 100 01/15/22 17:19 01/15/22 17:20 01/15/22 17:21 Temperature Pulse Rate 69 70 69 Respiratory Rate 23 23 17 Blood Pressure Pulse Oximetry 100 99 99 01/15/22 17:22 01/15/22 17:23 01/15/22 17:24 Temperature Pulse Rate 69 68 67 Respiratory Rate 18 18 16 Blood Pressure Pulse Oximetry 100 97 99 01/15/22 17:25 01/15/22 17:26 01/15/22 17:27 Temperature Pulse Rate 66 66 67 Respiratory Rate 23 22 20 Blood Pressure Pulse Oximetry 99 100 01/15/22 17:28 01/15/22 17:29 01/15/22 17:30 Temperature Pulse Rate 67 66 67 Respiratory Rate 21 18 14 Blood Pressure Pulse Oximetry 01/15/22 17:31 01/15/22 17:32 01/15/22 17:33 Temperature Pulse Rate 66 65 64 Respiratory Rate 21 16 12 Blood Pressure Pulse Oximetry 01/15/22 17:34 01/15/22 17:35 01/15/22 17:36 Temperature Pulse Rate 65 66 65 Respiratory Rate 16 23 20 Blood Pressure Pulse Oximetry 01/15/22 17:37 01/15/22 17:38 01/15/22 17:39 Temperature Pulse Rate 63 62 60 Respiratory Rate 19 18 20 Blood Pressure Pulse Oximetry 01/15/22 17:40 01/15/22 17:41 01/15/22 17:42 Temperature Pulse Rate 61 62 61 Respiratory Rate 19 22 18 Blood Pressure Pulse Oximetry 01/15/22 17:43 01/15/22 17:44 01/15/22 17:45 Temperature Pulse Rate 62 62 61 Respiratory Rate 13 21 18 Blood Pressure Pulse Oximetry 01/15/22 17:46 01/15/22 17:47 01/15/22 17:48 Temperature Pulse Rate 62 61 61 Respiratory Rate 17 16 11 L Blood Pressure Pulse Oximetry 01/15/22 17:49 01/15/22 17:50 01/15/22 17:51 Temperature Pulse Rate 61 61 62 Respiratory Rate 20 20 20 Blood Pressure Pulse Oximetry 01/15/22 17:52 01/15/22 17:53 01/15/22 17:54 Temperature Pulse Rate 62 63 62 Respiratory Rate 18 20 20 Blood Pressure Pulse Oximetry 01/15/22 17:55 01/15/22 17:56 01/15/22 17:57 Temperature Pulse Rate 65 64 64 Respiratory Rate 23 19 14 Blood Pressure 93/46 L 93/55 L Pulse Oximetry 98 98 100 01/15/22 17:58 01/15/22 17:59 01/15/22 18:00 Temperature Pulse Rate 63 65 65 Respiratory Rate 13 21 17 Blood Pressure 97/55 L Pulse Oximetry 100 100 100 01/15/22 18:01 01/15/22 18:02 01/15/22 18:03 Temperature Pulse Rate 64 66 65 Respiratory Rate 22 20 19 Blood Pressure 102/50 L Pulse Oximetry 99 100 100 01/15/22 18:04 01/15/22 18:05 01/15/22 18:06 Temperature Pulse Rate 62 63 79 Respiratory Rate 20 36 H 25 H Blood Pressure Pulse Oximetry 100 100 100 01/15/22 18:07 01/15/22 18:08 01/15/22 18:09 Temperature Pulse Rate 77 75 72 Respiratory Rate 23 21 20 Blood Pressure Pulse Oximetry 100 100 100 01/15/22 18:10 01/15/22 18:11 01/15/22 18:12 Temperature Pulse Rate 71 70 71 Respiratory Rate 15 22 17 Blood Pressure Pulse Oximetry 99 100 100 01/15/22 18:13 01/15/22 18:14 01/15/22 18:15 Temperature Pulse Rate 72 71 70 Respiratory Rate 24 18 19 Blood Pressure 120/58 L 120/60 Pulse Oximetry 100 100 100 01/15/22 18:16 01/15/22 18:17 01/15/22 18:18 Temperature Pulse Rate 69 70 71 Respiratory Rate 15 20 21 Blood Pressure Pulse Oximetry 100 100 100 01/15/22 18:19 01/15/22 18:20 01/15/22 18:21 Temperature Pulse Rate 71 70 70 Respiratory Rate 18 18 17 Blood Pressure Pulse Oximetry 100 100 01/15/22 21:04 Temperature 96.8 F L Pulse Rate 65 Respiratory Rate 20 Blood Pressure 97/42 L Pulse Oximetry 97
[2022-01-16] VITALS (11 sets, daily range): BP systolic 90–145; BP diastolic 35–65; PULSE 75–82; RESP 16–21; TEMP 37–37.7; O2SAT 97–99
[2022-01-16] MEDS: HYDROCODONE/ACET 5/325 TABLET 1 TAB PO ×4 (04:14→21:08)
[2022-01-16 05:45] LABS: Add Manual Diff / Slide Review NO; Basophils Absolute Auto 0 /uL (0-100); Basophils Percent Auto 0.3 % (0-2); Eosinophils Absolute Auto 100 /uL (0-450); Eosinophils Percent Auto 1.2 % (2-4); Hematocrit 33.7 % (36-46); Hemoglobin 11.4 g/dL (12.0-16.0); Lymphocytes Absolute Auto 2700 /uL (1100-4500); Lymphocytes Percent Auto 23.1 % (25-40); Mean Corpuscular HGB Conc 33.8 % (30-36); Mean Corpuscular Hemoglobin 33.7 PG (26-34); Mean Corpuscular Volume 99.8 fL (80-100); Monocytes Absolute Auto 800 /uL (0-900); Monocytes Percent Auto 6.9 % (3-14); Neutrophils Absolute Auto 8000 /uL (1500-7000); Neutrophils Percent Auto 68.5 % (50-75); Platelet Count 240 X10^3/uL (150-400); Red Blood Cell Count 3.37 X10^6/uL (4.0-5.2); Red Cell Distribution Width 13.6 % (11.6-14.8); White Blood Cell Count 11.7 X10^3/uL (4.5-11.0)
[2022-01-16 05:54] LABS: BUN Creatinine Ratio 12.8 (6-22); Blood Urea Nitrogen 11 mg/dL (7-17); Calcium 8.4 mg/dL (8.4-10.2); Carbon Dioxide 27 mmol/L (22-32); Chloride 110 mmol/L (98-107); Estimated Glomerular Filt Rate > 60 mL/min (>60); Glucose 74 mg/dL (80-110); HEMOLYSIS < 15 (0-50); Potassium 3.9 mmol/L (3.4-5.1); Sodium 140 mmol/L (137-145)
--- NOTE | 2022-01-16 07:45 | P.PN_ITS ---
Subjective Subjective Date Patient Seen: 01/16/22 Interval history: She is seen in her room here today to follow-up her left-sided lower extremity and bilateral upper extremity weakness. She also has several nasal fractures and complains of bilateral shoulder arthritis pain. Today she is flexing her elbows completely by her side and telling me that she can not move her fingers. Yesterday it was variable and she could not even move the elbows. Her exam is unreliable and inconsistent but I remain concerned about a central cord syndrome. Exam Vital Signs (past 8 hours): - 01/16/22 01:04 01/16/22 04:56 Temperature 98.8 F 98.6 F Pulse Rate 82 78 Respiratory Rate 21 19 Blood Pressure 145/65 H 109/42 L Pulse Oximetry 99 97 Oxygen Delivery Method Room Air Oxygen Flow Rate 0 Narrative Exam Narrative: She is alert and oriented x3. She is much more interactive and agreeable with her present. No apparent distress She says her nose hurts only when someone touches it. She has a progressive bruising of the area of the medial eye bilaterally next to the nose. Heart is regular rate rhythm without murmur Lungs are clear to auscultation bilaterally Extremities have no ankle edema Neurological exam: She is unable to make any gripping movements with the left hand. The right hand ampoule inspector movement strength of 1/5. The left leg strength is 2/5, the right leg strength is 3/5. Sensation appears to be symmetric bilateral upper and lower extremities. Deep tendon reflexes are suppressed bilateral upper and lower. Objective Labs Result Diagrams: 01/16/22 05:25 01/16/22 05:25 Labs: Laboratory Results - last 24 hr 01/15/22 01/15/22 01/15/22 17:17 17:17 18:40 WBC 8.5 RBC 3.13 L Hgb 10.7 L Hct 31.5 L MCV 100.5 H MCH 34.1 H MCHC 33.9 RDW 13.5 Plt Count 213 Neut % (Auto) 56.4 Lymph % (Auto) 35.2 [place] % (Auto) 5.5 Eos % (Auto) 2.3 Baso % (Auto) 0.6 Neut # (Auto) 4800 Lymph # (Auto) 3000 [place] # (Auto) 500 Eos # (Auto) 200 Baso # (Auto) 0 Sodium 138 Potassium 3.7 Chloride 107 Carbon Dioxide 27 BUN 12 Creatinine 0.99 Estimated GFR 60 BUN/Creatinine Ratio 12.1 Glucose 182 H Calcium 8.4 Total Bilirubin 0.3 AST 26 ALT 17 Alkaline Phosphatase 41 Total Creatine Kinase 36 CK-MB (CK-2) TNP CK-MB (CK-2) Rel Index TNP Troponin I < 0.012 Total Protein 5.4 L Albumin 2.8 L Globulin 2.6 Albumin/Globulin Ratio 1.1 Ethyl Alcohol < 10 SARS-CoV-2 (PCR) Negative 01/16/22 01/16/22 05:25 05:25 WBC 11.7 H RBC 3.37 L Hgb 11.4 L Hct 33.7 L MCV 99.8 MCH 33.7 MCHC 33.8 RDW 13.6 Plt Count 240 Neut % (Auto) 68.5 Lymph % (Auto) 23.1 L [place] % (Auto) 6.9 Eos % (Auto) 1.2 L Baso % (Auto) 0.3 Neut # (Auto) 8000 H Lymph # (Auto) 2700 [place] # (Auto) 800 Eos # (Auto) 100 Baso # (Auto) 0 Sodium 140 Potassium 3.9 Chloride 110 H Carbon Dioxide 27 BUN 11 Creatinine 0.86 Estimated GFR > 60 BUN/Creatinine Ratio 12.8 Glucose 74 L D Calcium 8.4 Total Bilirubin AST ALT Alkaline Phosphatase Total Creatine Kinase CK-MB (CK-2) CK-MB (CK-2) Rel Index Troponin I Total Protein Albumin Globulin Albumin/Globulin Ratio Ethyl Alcohol SARS-CoV-2 (PCR) [facility] Medical History (Updated 01/15/22 @ 18:26 by Nilesh Goode MD) Allergic rhinitis Anxiety and depression Essential hypertension Gastric ulcer Hiatal hernia Hyperlipidemia IBS (irritable bowel syndrome) Insulin dependent diabetes mellitus Peripheral vascular disease Sciatica Surgical History (Updated 01/15/22 @ 21:25 by Yamil Llanes MD) History of carpal tunnel surgery History of gastric surgery S/P colonoscopic polypectomy Family History Mother Diabetes mellitus Myocardial infarct Renal failure Father Diabetes mellitus Parkinson disease Social History household members: spouse, family and children Smoking Status: Never smoker alcohol intake: never Assessment & Plan Assessment & Plan narrative: This is a 76-year-old female with cardiomyopathy, anxiety, depression, hype rtension and type 2 diabetes mellitus who became acutely vertiginous and fell in her garage on the ramp today.? She fractured her nose, causing a large nose bleed and on evaluation in the emergency department was noted to have some left- sided weakness.? She has undergone extensive imaging including face CT, head and neck CTA, chest/abdomen/pelvis CT, brain CT and MRI and C-spine CT all of these have been read except for the C-spine CT.? This does not appear to show any fracture on my review of the films and on initial verbal reports. Bilateral upper extremity weakness, present on admission.? Active.? -there is concern for anterior cord syndrome and central cord syndrome. -the cervical spine CT official report is not available yet.? The initial report was that she did not have any fracture.? -the exam findings of?relatively greater hand and arm weakness compared with leg weakness can occur after an injury to the corticospinal tracts in the medulla or the cervical cord. 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 Spine surgery consultation is recommended. -the patient prefers to be transferred to [facility] in [place]. We will contact their transfer center and Neurosurgery. Otherwise we will be in touch with [facility] neurosurgery She initially says that she would not consider surgery on her neck but then back tracks. Nasal fractures, present on admission.? Active.? -the epistaxis has stopped -will plan referral for ENT evaluation as an outpatient. Remote right basal ganglia lacunar infarct, present on admission.? Chronic.? -no clear symptoms of this apparent previous CVA. 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 Type 2 diabetes mellitus, present on admission.? Active.? -continue home insulin regimen of Lantus 55 units in the morning and a variable dose in the evening. Anxiety/depression, present on admission.? Chronic.? -no current treatment Her is her backup decision maker.? SCD for DVT prevention and avoid heparin/Lovenox due to recent epistaxis. Time Spent With Patient Critical Care time: I spent a total of [] minutes of critical care time on this patient's care today; this time is exclusive of procedural time. Quality VTE Deep Vein Thrombosis/Pulmonary Embolism Present on Admission: No
[2022-01-16] MEDS: SODIUM CHLORIDE 0.9% FLUSH 10 ML IV ×2 (09:46→20:32)
--- NOTE | 2022-01-16 10:20 | CM.DANOTE ---
Addendum entered by Luke Cage 01/16/22 15:06: Post OT eval, addiction social worker talked with patient and patient's spouse about possible need for SNF. Patient reluctantly indicated she would do SNF if it was required. Patient and spouse wanted to take remainder of today to research facilities in [facility] to choose which they would prefer; they were asked to pick their top 2-3. PT unable to work with patient today. Original Note: Discharge Assessment Note: Patient is 76yo Female admitted to hospitalist team for fall injuries and subsequent BLE weakness, more prominent in upper than lower extremities. Patient is pending order for MRI to r/o anterior or central cord syndrome. Patient and spouse at bedside when addiction social worker entered room; addiction social worker introduced self and explained role at hospital. PCP: Lion Coats INS: Medicare primary, [facility] Patient lives in private residence with her spouse and other family members including adult children. Patient has 4WW and FWW available for use as needed. Patient has no history with HH or SNF and doesn't use O2 at home. Patient is interested in private pay for housekeeping assistance for which addiction social worker provided senior resource booklet. Patient reports she is independent at baseline with just recent decline in physical capabilities. Per hospitalist in rounds 01/16, patient may require SNF. Patient wants to discharge home with possible HH with preference for the agency that will see us in [place], no other stated preference. Charge nurse reported she would put in orders for PT eval. Luke CULLEN Discharge Planning/Care Management CM Discharge Assessment Start: 01/16/22 09:39 Freq: Status: Active Protocol: Document 01/16/22 09:39 LATASHA (Rec: 01/16/22 09:42 LATASHA [id number]) Discharge Planning Assessment Assigned Body Rolling Machine Tender Luke CULLEN DPOA/Assigned Designee Name Spouse Jacob Contact Information [phone] Advance Directives? Yes Advance Directives on File No History Provided By Patient,Significant Other Has Patient been admitted in last 30 No days? Prior Living Arrangements House Household Members spouse,family,children Type of transporation used prior to Relies on Others admit Independent with ADL's Yes Is patient alert and oriented? Yes Needs Assistance With Home Chores / Shopping Comment will provide senior resource book for private pay options for home assistance Caregiver for Another No DME Already Rented / Owned FWW / Walker Comment has 4ww and fww Barriers to Discharge No Discharge Plan Home Transportation Arrangement spouse Jacob Colvin Updated in Patient Room with Yes name and ext. # of Body Rolling Machine Tender Review Status In Process Next Review Type Continued Stay Review
--- NOTE | 2022-01-16 10:39 | DI.MRI.S_ITS ---
PROCEDURE: MR CERVICAL SPINE WO CON INDICATIONS: Recent trauma. Clinical concern for central cord syndrome TECHNIQUE: Noncontrast sagittal T1 spin echo and T2 fast spin echo, sagittal STIR, foraminal oblique sagittal T2 fast spin echo, and axial gradient echo or T2 fast spin echo through the cervical spine. COMPARISON: [facility], CT, CT CERVICAL SPINE WO CON, 01/15/2022, 16:55. [facility], CT, CT ANGIO HEAD AND NECK, 01/15/2022, 17:04. [facility], MR, MR HEAD/BRAIN WO CON, 01/15/2022, 19:12. FINDINGS: Image quality: Excellent. Alignment and Curvature: There is normal bony alignment. Bone Marrow: Marrow demonstrates normal overall signal. Spinal Cord: At the C4 level, there is mildly increased T2 weighted signal, as on series 3, images 10 and 11. Visualized spinal cord otherwise has normal size and signal. No cerebellar tonsillar herniation. Paraspinous Soft Tissues: No paravertebral masses. Prevertebral soft tissues are normal in thickness. C2-C3: The disc height is well-preserved. Loss of disc signal is seen at this level. At least moderate disc osteophyte complex is seen, with a central disc osteophyte protrusion. At least moderate facet hypertrophy is seen. Moderate bilateral neural foraminal narrowing is seen. Moderate central canal narrowing is seen. There is associated mass effect upon the ventral spinal cord. C3-C4: Moderate loss of disc height is seen. Loss of disc signal is seen. At least moderate disc osteophyte complex is seen. Bridging endplate osteophytes are seen. There is a large central disc osteophyte protrusion seen. Moderate facet joint hypertrophy is seen. Severe bilateral neural foraminal narrowing can be seen. Severe central canal narrowing is seen at this level, as on series 4, image 18 and on series 3 image 11. C4-C5: The disc height is well-preserved. Loss of disc signal is seen at this level. Moderate generalized disc osteophyte complex is seen. At least moderate facet hypertrophy is seen. There is moderate to severe left-sided and moderate right-sided neural foraminal narrowing. Moderate central canal narrowing is seen. Minimal mass effect can be seen upon the ventral spinal cord. C5-C6: The disc height is well-preserved. Loss of disc signal is seen at this level. Moderate facet joint hypertrophy is seen. There is moderate to severe bilateral neural foraminal narrowing seen, left worse than right. At least moderate central canal narrowing is seen, with associated mass effect upon the ventral spinal cord. C6-C7: The disc height is well-preserved. Loss of disc signal is seen at this level. Moderate disc osteophyte complex is seen, with a mild central disc osteophyte protrusion. There is moderate right-sided and mild left-sided facet hypertrophy. There is moderate to severe right-sided and moderate left-sided neural foraminal narrowing. Mild to moderate central canal narrowing is seen. There is associated mass effect upon the ventral spinal cord. C7-T1: The disc height is well-preserved. Loss of disc signal is seen at this level. A mild degree of generalized disc osteophyte complex is seen. No significant neural foraminal or central canal narrowing can be seen. IMPRESSION: At the C3-C4 level, there is severe central canal narrowing and severe bilateral neural foraminal narrowing. 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 Multiple levels of relatively prominent degenerative change can be seen elsewhere. Spine surgery consultation is recommended. Dictated by: Guillermo Weller M.D. on 01/16/2022 at 14:05 Approved by: Guillermo Weller M.D. on 01/16/2022 at 14:12
[2022-01-16] MEDS: ACETAMINOPHEN 325 MG TABLET 650 MG PO (11:16)
[2022-01-16 11:32] LABS: Appearance Urine UA CLEAR; Bilirubin Urine UA NEGATIVE (NEGATIVE); Color Urine UA YELLOW; Glucose Urine UA 1+ g/dL (Negative); Ketones Urine UA NEGATIVE (NEGATIVE); Leukocyte Esterase Urine UA TRACE (NEGATIVE); Nitrite Urine UA NEGATIVE (Negative); Occult Blood Urine UA 2+ (Negative); Protein Urine UA TRACE (Negative); Urobilinogen Urine UA 0.2 E.U./dL (0.2)
[2022-01-16 11:38] LABS: Bacteria Urine Moderate (10-30); Culture Indicated Urine Specimen Cultured; RBC Urine 5-10/HPF (0-5/HPF); WBC Urine 5-10/HPF (0-5/HPF)
--- NOTE | 2022-01-16 12:00 | OT.IP.EVAL ---
Past Medical History (Last Reviewed 01/15/22 @ 17:00 by Nilesh Goode MD) Allergic rhinitis Anxiety and depression Essential hypertension Gastric ulcer Hiatal hernia History of carpal tunnel surgery History of gastric surgery Hyperlipidemia IBS (irritable bowel syndrome) Insulin dependent diabetes mellitus Peripheral vascular disease S/P colonoscopic polypectomy Sciatica Surgical History (Last Updated 01/15/22 @ 21:25 by Yamil Llanes MD) History of carpal tunnel surgery History of gastric surgery S/P colonoscopic polypectomy Occupational Therapy Inpatient Evaluation/Re-Eval M1 PT/OT-IP Prior Functional Status Start: 01/16/22 12:05 Freq: NEEDED Status: Active Protocol: Document 01/16/22 11:15 [facility] (Rec: 01/16/22 12:37 [facility] [id number]) Medical Review Prior Functional Status Communication independent Mobility and Gait Pt states does not a device at home. But then states a times uses a FWW in the house or just furniture cruise in the house. Pt states, I just bounce off the correa. Pt states her son will follow her at times to make sure that she is safe, especially if she is walking without a device. Activities of Daily Living and IADL's Pt states needs increased time for ADL needs and assists to get her out of the shower. Pt's does all IADL, finances, and drives. Prior Functional Level (Other details) Pt states she has been having trouble with her shoulder lately as just restarted crocheting again. When asked, pt states does not support her arms when doing her crafts. In addition pt states has bilateral rotator cuff injuries which also limit her ability to more her arms. However just recently pt states her left arm has gotten much worse. Pt states usually sleeps on her left shoulder at night. Social History Household Members spouse,family,children Living Arrangements House Number of Floors (Floors) One Floor Number of Stairs To Enter/Railing? Pt has a ramp in the garage and back porch but usually uses the front door with 3 steps with bilateral narrow rails. Home Environment Walk in Shower Home Equipment Front Wheel Walker,Four Wheel Walker,Hand Held Shower,Grab Bars In Shower Additional Social History Comment Pt's home and pt states he at times will assist to get her legs into bed or assist to help get her out of the shower, but otherwise she states does her ADL's when she can- pain pending. Walk in shower has a built in seat , grab bars, and HHSP. Pt usually sleep in bed but at times in her loveseat where she spends most of her day in. M2 OT-IP Current Condition Start: 01/16/22 12:05 Freq: Status: Active Protocol: Document 01/16/22 11:15 [facility] (Rec: 01/16/22 12:37 [facility] [id number]) Occupational Therapy Current Condition Current Condition Evaluation Date 01/16/22 Treatment Diagnosis GLF, fractured nose, weakness Diagnosis Onset Date 01/15/22 M3 OT- IP Subjective and Pain Start: 01/16/22 12:05 Freq: Status: Active Protocol: Document 01/16/22 11:15 [facility] (Rec: 01/16/22 12:37 [facility] [id number]) OT- Subjective Occupational Therapy Visit Type Type Initial Evaluation Visit Start Time 11:15 Visit Stop Time 12:00 Total Visit Minutes 45 Occupational Therapy Visit Comments Patient Comments Pt agreed to work with OT. Patient/Caregiver Goals TO go home. OT Pain Assessment Pain When Pain Assessed At Rest Pain Present Pain Present Pain Reported Location bilat shoulder Intensity 8 Scale Used Numeric (0 - 10) M4 OT- IP ADL's Start: 01/16/22 12:05 Freq: Status: Active Protocol: Document 01/16/22 11:15 [facility] (Rec: 01/16/22 12:37 [facility] [id number]) OT [id number] Comments OT Self-Feeding Comments NOt at meal time, due to decreased AROM with her arms, would benefit from from having 1:1 assist at this time for feeding. OT ADL-Grooming Comments OT Grooming Comments Not performed. OT ADL-Oral Care Comments Oral Care Comments Not performed. OT ADL-Dressing General Eval Upper Body Dressing Ability Total Assistance Lower Body Dressing Ability Total Assistance OT ADL-Toileting Comments OT Toileting Comments Not performed. OT ADL-Bathing Comments OT Bathing Comments Sponge bath more appropriate at this time. M5 OT- IP IADL's Start: 01/16/22 12:05 Freq: Status: Active Protocol: Document 01/16/22 11:15 [facility] (Rec: 01/16/22 12:37 [facility] [id number]) OT-Instrumental Activities of Daily Living Home Safety Awareness Awareness of Need for Assistance at Home Good Awareness Medication Management Medication Management Caregiver Administers Money Management Money Management Caregiver Provides Assistance Meal Preparation Meal Preparation Caregiver Provides Assist Dining Services Director Dining Services Director Caregiver Provides Assist Driving Driving Caregiver Provides Assist M6 OT- IP Functional Cognition Start: 01/16/22 12:05 Freq: Status: Active Protocol: Document 01/16/22 11:15 [facility] (Rec: 01/16/22 12:37 [facility] [id number]) Cognitive Factors Limiting Selfcare Function Cognitive Ability Level of Alertness Alert Patient Orientation Name,Place,Situation Attention Span Ability Capable of Focused Attention, Capable of Sustained Attention Ability to Follow Commands Able to Follow One Step Commands with Increased Time, Able to Follow One Step Commands with Repetition Cognitive Comments Cognitive Assessment Comments Pt able to follow directions for mobility needs. At times pt does not seem to give a full history as towards the end of the session will admit to the OT that her will assist her more for her needs, or that her shoulders were already giving her issues before. It would be good to clarify with her of her prior level of function and as at times pt is inconsistent to states her prior level or care. OT- Vision and Hearing OT- Hearing Assessment OT- Hearing Assessment WFL OT- Vision Assessment Vision History Cataracts Visual Acuity Glasses All The Time Vision Assessment Comments Pt able to read the clock appropriately. M7 OT- IP Mobility and Balance Start: 01/16/22 12:05 Freq: Status: Active Protocol: Document 01/16/22 11:15 [facility] (Rec: 01/16/22 12:37 [facility] [id number]) OT- Bed Mobility Assessment Supine to Sit Supine to Sit Assist Maximum Assistance,1 Person Assistance,Head of Bed Elevated,Bedrails Sit to Supine Sit to Supine Assist Maximum Assistance,2 Person Assistance Scooting Scooting to Edge of Bed Moderate Assistance,2 Person Assistance OT-Transfer Assessment Comments Mobility Comments MAX AX 1 to get get her trunk upright and her legs off the bed. MODA x2 to get her to the edge of the bed as pt having decreased balance and tends to lean posteriorly. Nursing aid present to assist. BP supine 104/46 no symptoms, sitting 100/41- pt feeling woozy and then right after lying her back down 90/39 and then after in supine 100/35- pt not feeling woozy but feeling very sleepy, nursing notified. OT- Balance Assessment Sitting Balance and Reactions Static Sitting Balance Ability Poor Dynamic Sitting Balance Ability Poor Comments Other Balance Tests/Deviations/Treatment Pt needing MOD/MAXA for : sitting balance, however not able to get her feet on the floor to assist for her balance. Pt getting too woozy and needing assist to lie down again. Pt only able to assist minimally with her right arm and not with her left arm to get upright. M8 OT- IP Objective Assessments Start: 01/16/22 12:05 Freq: Status: Active Protocol: Document 01/16/22 11:15 [facility] (Rec: 01/16/22 12:37 [facility] [id number]) OT Gross Range of Motion Upper Extremity Range of Motion Assessment Bilaterally Impaired ROM Impairments LUE able to bend at her elbow in supine, decreased control at her wrist and fingers. Unable to raise her left arm. RUE able to lift her arm slightly initially in supine. Able to actively bend at her elbow and more her fingers and wrist. OT Strength Upper Extremity Strength Assessment Bilaterally Impaired Comments Strength Comments LUE 2-/5 shoulder, elbow 2/5 and fingers/wrist 1/5 RUE 2+/5 shoulder, elbow 3-/5, fingers/wrist3-/5 OT- Coordination Assessment Upper Extremity Finger to Nose Test Bilateral UE Impaired M9 OT- IP Assessment and Plan Start: 01/16/22 12:05 Freq: Status: Active Protocol: Document 01/16/22 11:15 [facility] (Rec: 01/16/22 12:37 [facility] [id number]) OT Summary Assessment and Plan Potential Rehabilitation Potential Fair Analytic Complexity at Evaluation High Summary OT Impairments Pain,Range of Motion,Strength, Balance,Coordination,Tone, Functional Cognition, Functional Mobility,Self- Feeding,Grooming,Dressing, Toileting,Bathing,Toilet Transfers,Shower Transfers, Activity Tolerance Progress Towards Goals Slow Progress due to Pain,Slow Progress due to Medical Issues,Slow Progress due to Activity Tolerance,Slow Progress due to Cognition Assessment Summary Pt high complexity and main barriers are not being able to functionally move her BUE LUE >RUE at this time, pain, having low BP in sitting, and only able to tolerate sitting at this time. Pt would benefit from skilled rehab prior to going home. Goals Self-Feeding Goal Independent Grooming Goal Independent Dressing Goal Minimal Assistance Toileting Goal Minimal Assistance Bathing Goal Minimal Assistance Toilet Transfer Goal Standby Assistance Shower Transfer Goal Standby Assistance Days to Meet Goals 30 Frequency of Treatment Frequency Of Treatment Once a Day Treatment Plan OT Treatment Plan ADL Training,Functional Cognition Training,Functional Mobility,Patient/Family Education,Discharge Planning Other Treatment Recommendations and Next Pt to be able to feel herself Treatment Focus with finger foods after set-up assist and support of pillow at her elbow. Discharge Recommendations OT Discharge Recommendations SNF Rehab Transportation Needs at Discharge Stretcher/Ambulance
--- NOTE | 2022-01-16 12:19 | PT-IP ANOTE ---
Received PT eval order. EMR reviewed : pt s/p fall and per MD note: concern for anterior cord syndrome or central cord syndrome. Checked on pt and BP checked: 102/38. pt also feeling really sleepy. informed nurse regarding low BP with really low diastolic. pt not medically stable for PT eval at this time. will hold PT eval today.
--- NOTE | 2022-01-16 19:43 | PM.DS.1 ---
History of Present Illness History of Present Illness Date Patient Seen: 01/16/22 Time Patient Seen: 20:30 Chief complaint: Unwitnessed fall Narrative: Per Dr. Llanes, This is a 76-year-old female with cardiomyopathy, anxiety, depression, hypertension and type 2 diabetes mellitus who became acutely vertiginous and fell in her garage on the ramp today.? She fractured her nose, causing a large nose bleed and on evaluation in the emergency department was noted to have some left-sided weakness.? She has undergone extensive imaging including face CT, head and neck CTA, chest/abdomen/pelvis CT, brain CT and MRI and C-spine CT all of these have been read except for the C-spine CT.? This does not appear to show any fracture on my review of the films and on initial verbal reports.? She now is experiencing upper extremity bilateral weakness comparatively more prominent than lower extremity weakness.? Some of this appears to be volitional but is is still quite concerning for anterior or central cord syndrome.? Her exam is variable/unreliable.? She insists she is unable to move her arms but when her arms are raised in the bed she is able to hold them up momentarily.? Her loss prevention representative strength is weak.? Her reflexes are not remarkable.? Her lower extremity exam is notable for some weakness but no complaint of weakness.? She has quite a bit of dried blood around her nose where the nasal fractures are. Discharge Providers Provider Date of admission: 01/15/22 18:38 Discharge Date: 01/16/22 Primary care physician: Lion Coats MD Consults: 01/16/22 10:41 Consult to Occupational Therapy Evaluate & Treat Comment: Physician Instructions: Evaluate and treat Consult to Physical Therapy Evaluate & Treat Comment: Physician Instructions: Evaluate and Treat Discharge provider: Casa Israel DO Summary Hospital Course Discharge Diagnosis: Please see hospital course by problem list noted below: Hospital Course: This is a 76-year-old female with cardiomyopathy, anxiety, depression, hypertension and type 2 diabetes mellitus who became acutely vertiginous and fell in her garage yesterday afternoon. She fractured her nose, causing a large nose bleed and on evaluation in the emergency department was noted to have some left-sided weakness.? She has undergone extensive imaging including face CT, head and neck CTA, chest/abdomen/pelvis CT, brain CT and MRI brain and C-spine CT all of these have been read except for the C-spine CT.?She continued to have predominantly upper extremity weakness, MRI C-spine was performed and is noted below. Patient was transferred to [facility] given MRI findings for orthopedic spinal surgery intervention per transfer center. Accepting physician is Dr. Pérez. 1. Bilateral upper extremity weakness, present on admission.? Active.? -there is concern for anterior cord syndrome and central cord syndrome. -the cervical spine CT was without fracture. -patient continues to have difficulty with using her left hand, and to a lesser extent her R hand. 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 Spine surgery consultation is recommended, transferred to [facility] for further management as noted above. 2. Nasal fractures, present on admission.? Active.? -the epistaxis has stopped -referral for ENT evaluation as an outpatient was planned. 3. Remote right basal ganglia lacunar infarct, present on admission.? Chronic.? -no clear symptoms of this apparent previous CVA. 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 4. Type 2 diabetes mellitus, present on admission.? Active.? -continue home insulin regimen of Lantus 55 units in the morning and a variable dose in the evening. 5. Anxiety/depression, present on admission.? Chronic.? -no current treatment Code: Full , Her is her surrogate decision maker. SCD for DVT prevention and avoid heparin/Lovenox due to recent epistaxis. Time Spent with Patient Time spent: Greater than 30 minutes Exam Vital Signs (past 8 hours): - 01/16/22 11:45 01/16/22 11:48 01/16/22 11:50 Temperature Pulse Rate 81 82 75 Respiratory Rate Blood Pressure 100/41 L 90/39 L 100/35 L Pulse Oximetry 01/16/22 11:54 01/16/22 17:00 Temperature 99.2 F Pulse Rate 76 76 Respiratory Rate 16 Blood Pressure 103/36 L 112/45 L Pulse Oximetry 97 Oxygen Delivery Method Room Air Oxygen Flow Rate 0 Narrative Exam Narrative: She is alert and oriented x3. No apparent distress, though anxious about possible transfer. She has a progressive bruising of the area of the medial eye bilaterally next to the nose.? Heart is regular rate rhythm without murmur Lungs are clear to auscultation bilaterally Extremities have no ankle edema Neurological exam:? She is unable to make any gripping movements with the left hand.? The right hand loss prevention representative movement strength of 4/5.? Sensation appears to be symmetric bilateral upper and lower extremities. Objective Labs Result Diagrams: 01/16/22 05:25 01/16/22 05:25 Labs: Laboratory Results - last 24 hr 01/16/22 01/16/22 01/16/22 05:25 05:25 11:07 WBC 11.7 H RBC 3.37 L Hgb 11.4 L Hct 33.7 L MCV 99.8 MCH 33.7 MCHC 33.8 RDW 13.6 Plt Count 240 Neut % (Auto) 68.5 Lymph % (Auto) 23.1 L Mcnairy % (Auto) 6.9 Eos % (Auto) 1.2 L Baso % (Auto) 0.3 Neut # (Auto) 8000 H Lymph # (Auto) 2700 Mcnairy # (Auto) 800 Eos # (Auto) 100 Baso # (Auto) 0 Sodium 140 Potassium 3.9 Chloride 110 H Carbon Dioxide 27 BUN 11 Creatinine 0.86 Estimated GFR > 60 BUN/Creatinine Ratio 12.8 Glucose 74 L D Calcium 8.4 Urine Color Yellow Urine Appearance Clear Urine pH 5.0 Ur Specific Wilmer 1.020 Urine Protein Trace H Urine Glucose (UA) 1+ H Urine Ketones Negative Urine Occult Blood 2+ H Urine Nitrate Negative Urine Bilirubin Negative Urine Urobilinogen 0.2 Ur Leukocyte Esterase Trace H Urine RBC 5-10/hpf H Urine WBC 5-10/hpf H Urine Bacteria Moderate (10-30) H Ur Culture Indicated? Specimen cultured [facility] Medical History (Updated 01/15/22 @ 18:26 by Nilesh Goode MD) Allergic rhinitis Anxiety and depression Essential hypertension Gastric ulcer Hiatal hernia Hyperlipidemia IBS (irritable bowel syndrome) Insulin dependent diabetes mellitus Peripheral vascular disease Sciatica Surgical History (Updated 01/15/22 @ 21:25 by Yamil Llanes MD) History of carpal tunnel surgery History of gastric surgery S/P colonoscopic polypectomy Family History Mother Diabetes mellitus Myocardial infarct Renal failure Father Diabetes mellitus Parkinson disease Social History household members: spouse, family and children Smoking Status: Never smoker alcohol intake: never Discharge Plan Discharge Plan Disposition: [facility] Under care of provider: Dr. Pérez Provider Discharge Comment: Please see discharge summary Discharge orders & Medications Follow up/Referrals: Lion Coats MD [Primary Care Provider] - Discharge Health Status Multidrug resistant organism: No MDRO Precautions: [place] Diet/Activity/Treatments Diet: Nothing by Mouth Activity: Bed rest pending surgery evaluation Discharge Data Primary Care Provider: Lion Coats Quality VTE Deep Vein Thrombosis/Pulmonary Embolism Present on Admission: No
--- NOTE | 2022-01-16 21:16 | PC.NURSE ---
Addendum entered by Kathleen Thomas R.N. 01/16/22 22:20: [facility] to transfer patient [facility]. Call placed to [phone] and spoke to Álvaro li: report on patient. Original Note: Patient is alert and oriented. Continues to have weakness of all extremities upper > lower. Is able to move both arms but only minimally and is unable to lift left arm off bed. 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 Breath sounds CTA with RA sat of 97%. HRR w/telemetry reading of SR. Had nausea on previous shift but denied any nausea at time of assessment. BT present and abdomen is soft. Continues to be incontinent of urine and states she has some dysuria with urination; UA was sent and is being cultured. Is needing assistance to reposition. Complains of bilateral shoulder pain and was medicated with Vicodin. Wearing bilateral calf SCD's. Fall risk score is high and bed alarm is activated.
== END 2022-01-16 22:19 | disposition short-term general hospital (02) ==
LOC: ED 18:38 → AC 18:56
PROVIDERS: Family Medicine; Admitting Provider Student in an Organized Health Care Education/Training Program; Emergency Provider Emergency Medicine; PCP Family Medicine; Referring Provider Emergency Medicine; Visit Provider Student in an Organized Health Care Education/Training Program
DX: R42 Dizziness and giddiness (principal); R53.1 Weakness; W18.30XA Fall on same level, unspecified, initial encounter; Y92.015 Private garage of single-family (private) house as the place of occurrence of the external cause; Y93.9 Activity, unspecified; R29.708 NIHSS score 8; I10 Essential (primary) hypertension; F32.A Depression, unspecified; F41.9 Anxiety disorder, unspecified; I42.9 Cardiomyopathy, unspecified; E11.9 Type 2 diabetes mellitus without complications; S02.2XXA Fracture of nasal bones, initial encounter for closed fracture; Z86.73 Personal history of transient ischemic attack (TIA), and cerebral infarction without residual deficits; Z79.4 Long term (current) use of insulin; Z20.822 Contact with and (suspected) exposure to COVID-19
CPT/HCPCS: 36415; 70450; 70486; 70496; 70498; 70551; 71260; 72125; 72141; 74177; 80048; 80053; 80320; 81001; 82550; 82962; 84484; 85025; 87077; 87086; 87186; 87635; 93005; 96374; 97167; 99285; C9803; G0378; J2405

== ENCOUNTER → 2022-02-11 13:53 | Outpatient (CLI) | payer MEDICARE, OTHER, SELFPAY ==
[2022-01-15 20:04] VITALS: BMI 25.8
--- NOTE | 2022-02-11 | DI.RAD.S_ITS ---
PROCEDURE: XR CERVICAL SPINE 2V OR 3V INDICATIONS: Central cord syndrome at unspecified level of cervical spina TECHNIQUE: 3 view(s) of the cervical spine were acquired. COMPARISON: None. FINDINGS: Bones: No fractures or dislocations to the C5 level. Patient is status post posterior fixation from C2-C5. Hardware appears intact. There is bone graft material present bilaterally. Soft tissues: No prevertebral soft tissue swelling. IMPRESSION: Postoperative change. No findings to suggest hardware fracture. Dictated by: Kusum Sofia M.D. on 02/11/2022 at 17:12 Approved by: Kusum Sofia M.D. on 02/11/2022 at 17:13
== END ==
PROVIDERS: PCP Family Medicine; Referring Provider Physician Assistant; Visit Provider Physician Assistant
DX: S14.129D Central cord syndrome at unspecified level of cervical spinal cord, subsequent encounter (principal)
CPT/HCPCS: 72040

== ENCOUNTER 2023-09-14 11:18 | Emergency (ER) | payer MEDICARE, OTHER, SELFPAY ==
[2022-01-15 20:04] VITALS: BMI 25.8
[2023-09-14] VITALS (10 sets, daily range): BP systolic 136–164; BP diastolic 65–79; PULSE 70–89; RESP 18; TEMP 35.7; O2SAT 96–99; BMI 20.7
--- NOTE | 2023-09-14 12:03 | DI.CT.S_ITS ---
PROCEDURE: CT KIDNEY URETER BLADDER (KUB) INDICATIONS: hydronephrosis on Ultrasound of liver TECHNIQUE: Axial sections were acquired from the lung bases to the pubic symphysis. Coronal and sagittal reformats were performed. For radiation dose reduction, the following was used: automated exposure control, adjustment of mA and/or kV according to patient size. COMPARISON: [facility], CT, CT CHEST ABD PEL W CON, 01/15/2022, 18:23. [facility], CT, KIDNEY/ URETER/BLADDER, 07/21/2017, 22:53. [facility], US, US ABDOMEN LIMITED, 09/14/2023, 10:44. FINDINGS: Image quality: Diagnostic. Lower Chest: Severe coronary artery calcifications. URINARY: Right Kidney: Moderate hydronephrosis. There are 2 small floating calyceal stones, in both of which measure approximately 2 mm. There is a 1 mm nonobstructing lower pole stone, as well. There is [id number] right hydronephrosis. Right Ureter: At least moderate diffuse dilatation of the right ureter down to just above the ureterovesical junction, where there is an obstructing 2 mm stone. At the ureterovesical junction are 2 additional stones, 1 of which measures 3 mm, and the other which measures 2 mm. They may potentially have just passed into the bladder, or are at the ureterovesical junction in its distal aspect. Left Kidney: There are 2 nonobstructing stones, the larger of which measures 3 mm. No hydronephrosis. Left Ureter: Unremarkable Bladder: Normal wall thickness. There are either 2 stones at the distal aspect of the right ureterovesical junction or which have recently passed into the bladder. ABDOMEN: Liver: No contour-deforming solid mass. Gallbladder: Surgically absent Biliary ducts: No biliary dilation. Pancreas: No ductal dilation. Spleen: Size is within normal limits. Adrenal Glands: No adrenal nodules. Stomach and Bowel: Normal colonic caliber, without significant wall thickening. Moderate rectal fecal impaction. Moderately large fecal load. Peritoneum: No abnormal intraperitoneal fluid. No free air. Ventral Wall: No hernia. Abdominal Nodes: No enlarged retroperitoneal or mesenteric lymph nodes. Vessels: Aorta and inferior vena cava are normal in size. PELVIS: Pelvic Organs: Unremarkable. Pelvic Nodes: Unremarkable. Miscellaneous: No inguinal hernias are seen. Bones: Lumbar degenerative change. No lytic or blastic bony lesions. No compression fractures. IMPRESSION: 1. There is a 2 mm stone present in the distal right ureter. There are 2 additional stones which are either at the distal aspect of the right ureterovesical junction or have recently passed into the bladder. This results in moderate hydronephrosis and cncz-[id number] right hydroureter. 2. There also 2 stones floating in calices in the right kidney as well as a 1 mm right renal parenchymal stone. 3. Small nonobstructing left renal stones. 4. Severe coronary artery calcifications. 5. Remote cholecystectomy. 6. Moderate rectal fecal impaction. Moderately large diffuse fecal load. Mild diverticulosis without evidence of diverticulitis. Dictated by: Pillo Lewis M.D. on 09/14/2023 at 13:38 Approved by: Pillo Lewis M.D. on 09/14/2023 at 13:45
--- NOTE | 2023-09-14 12:19 | ED.ABDPAIN ---
HPI - Abdominal Pain General Chief Complaint: Abdominal Pain Stated Complaint: kidney stone/blockage, sent by DI Time Seen by Provider: 09/14/23 12:02 Source: patient and family Mode of arrival: Wheelchair History of Present Illness HPI narrative: Patient is a 78-year-old female history of cardiomyopathy, anxiety, hypertension diabetes CVA with left arm weakness, presents today from the eye. She has been having back pain or elevated liver enzymes she had an outpatient ultrasound which showed significant hydronephrosis. They were unable to contact the provider who ordered the ultrasound so she was sent to the ED. she reports that she is chronic ongoing sciatica she feels like her back pain is from that. It has not any worse. She has no radiating abdominal pain no nausea or vomiting. No fever. No chest pain or shortness of breath. He is chronically incontinent, mostly bedridden center stroke. Related Data Home Medications Medication Instructions Recorded Confirmed insulin NPH isoph U-100 human 100 0 unit SQ BID ##0 07/21/17 01/15/22 unit/mL subcutaneous suspension (Novolin N NPH U-100 Insulin isophane) Carmelo Plus Extra Strength 500 mg PO PRN PRN pain 07/11/19 01/15/22 acetaminophen 650 mg 650 mg PO DIRECTED 07/11/19 01/15/22 tablet,extended release (Tylenol 8 Hour) diphenhydramine HCl 25 mg capsule 25 mg PO PRN PRN as directed 07/11/19 01/15/22 (Benadryl) fluticasone propionate 50 1 spray intranasal DAILY PRN 07/11/19 01/15/22 mcg/actuation nasal Allergy Symptoms spray,suspension hydrocodone 5 mg-acetaminophen 325 See Rx Instructions .Route 01/15/22 01/15/22 mg tablet .COMPLEX PRN Pain (Scale Score 1-3) Previous Rx's Medication Instructions Recorded cephalexin 500 mg capsule 500 mg PO BID 7 days #14 caps 09/14/23 Allergies Allergy/AdvReac Type Severity Reaction Status Date / Time Sulfa (Sulfonamide Allergy Intermediate Rash Verified 07/11/19 14:37 Antibiotics) tamsulosin Allergy Intermediate Swelling Verified 07/11/19 14:37 of the Eye cetirizine [From ZYRTEC] Allergy Unknown Verified 07/11/19 13:09 Estrogens [ESTROGENS] Allergy Unknown Verified 07/11/19 13:09 ezetimibe [From ZETIA] Allergy Unknown Verified 07/11/19 13:09 Progestins [PROGESTINS] Allergy Unknown Verified 07/11/19 13:09 ranitidine [From ZANTAC] Allergy Unknown Verified 07/11/19 13:09 rosiglitazone [From AVANDIA] Allergy Unknown Verified 07/11/19 13:09 simvastatin [From ZOCOR] Allergy Unknown Verified 07/11/19 13:09 albuterol AdvReac Intermediate Anxiety Verified 07/11/19 14:37 meloxicam [From Mobic] AdvReac Intermediate Dizziness Verified 07/11/19 14:37 TRIPLIPIX Allergy Unknown Uncoded 07/11/19 13:09 Patient History Medical History Sciatica Anxiety and depression Gastric ulcer Allergic rhinitis IBS (irritable bowel syndrome) Peripheral vascular disease Insulin dependent diabetes mellitus Essential hypertension Hyperlipidemia Hiatal hernia Surgical History History of gastric surgery S/P colonoscopic polypectomy History of carpal tunnel surgery Family History Mother Diabetes mellitus Myocardial infarct Renal failure Father Diabetes mellitus Parkinson disease Social History household members: spouse, family and children Smoking Status: Never smoker alcohol intake: never Smoking Status: Never smoker alcohol intake frequency: 0-2 drinks per day Substance Use Type: does not use Exam Initial Vital Signs Initial Vital Signs: Vital Signs Temperature 96.2 F L 09/14/23 11:32 Pulse Rate 70 09/14/23 11:32 Respiratory Rate 18 09/14/23 11:32 Blood Pressure 136/79 09/14/23 11:32 Pulse Oximetry 99 09/14/23 11:32 GENERAL: Alert pleasant 78-year-old female and in no acute distress. HEENT: Head atraumatic,EOMI, pupils reactive, face symmetric, moist mucous membranes CARDIOVASCULAR: Regular rate and rhythm without murmurs, rubs or gallops. RESPIRATORY: Breath sounds equal bilaterally, no wheezes rales or rhonchi. ABDOMEN: Soft, nontender. Normoactive bowel sounds all 4 quadrants. No guarding or rebound. No right upper quadrant pain : No CVA tenderness EXTREMITIES: Normal range of motion, no clubbing or edema. Neurovascularly intact NEUROLOGICAL: Alert and oriented x4. Left-sided weakness at baseline SKIN: Warm, dry, no laceration, no petechiae, no rashes or lesions. Course Orders Ordered: ED Orders 09/14/23 12:03 CT kidney ureter bladder (KUB) Stat 09/14/23 12:23 Urine Culture Stat Urine Microscopic Stat 09/14/23 12:30 Complete Blood Count AUTO DIFF Stat Comprehensive Metabolic Panel Stat Lipase Stat Discontinued Medications Ondansetron HCl (Ondansetron 4 Mg Odt) 4 mg SL NOW ONE Stop: 09/14/23 13:52 Last Admin: 09/14/23 13:54 Dose: 4 mg Documented By: CATHRYN Vital Signs Vital signs: Vital Signs - 8 hr 09/14/23 12:38 09/14/23 13:00 09/14/23 13:30 Pulse Rate 80 80 87 Blood Pressure Pulse Oximetry 99 96 99 09/14/23 13:36 09/14/23 13:36 09/14/23 14:00 Pulse Rate 89 86 Blood Pressure 161/70 H Pulse Oximetry 98 98 09/14/23 14:12 09/14/23 14:13 Pulse Rate 89 Blood Pressure 164/65 H Pulse Oximetry 99 MDM - Abdominal Pain Lab Data 09/14/23 12:30 09/14/23 12:30 Labs: Lab Results 09/14/23 09/14/23 Range/Units 12:23 12:30 WBC 9.4 (4.5-11.0) X10^3/uL RBC 4.11 (4.0-5.2) X10^6/uL Hgb 13.9 (12.0-16.0) g/dL Hct 40.3 (36-46) % MCV 97.9 (80-100) fL MCH 33.9 (26-34) PG MCHC 34.6 (30-36) % RDW 13.6 (11.6-14.8) % Plt Count 250 (150-400) X10^3/uL Neut % (Auto) 58.1 (50-75) % Lymph % (Auto) 34.3 (25-40) % [place] % (Auto) 6.6 (3-14) % Eos % (Auto) 0.5 L (2-4) % Baso % (Auto) 0.5 (0-2) % Neut # (Auto) 5400 (7452-6170) /uL Lymph # (Auto) 3200 (3995-8709) /uL [place] # (Auto) 600 (0-900) /uL Eos # (Auto) 0 (0-450) /uL Baso # (Auto) 0 (0-100) /uL Sodium 133 L (137-145) mmol/L Potassium 4.5 (3.4-5.1) mmol/L Chloride 99 (98-107) mmol/L Carbon Dioxide 26 (22-32) mmol/L BUN 22 H (7-17) mg/dL Creatinine 0.74 (0.52-1.04) mg/dL Estimated GFR > 60 (>60) mL/min BUN/Creatinine Ratio 29.7 H (6-22) Glucose 244 H (80-110) mg/dL Calcium 10.0 (8.4-10.2) mg/dL Total Bilirubin 0.7 (0.2-1.3) mg/dL AST 27 (14-36) IU/L ALT 28 (<35) IU/L Alkaline Phosphatase 63 (38-126) U/L Total Protein 7.1 (6.3-8.2) g/dL Albumin 3.8 (3.5-5.0) g/dL Globulin 3.3 (1.7-4.1) g/dL Albumin/Globulin Ratio 1.2 (1.0-2.8) Lipase 22 L (23-300) U/L Urine RBC 1-5/hpf (0-5/HPF) Urine WBC >100/hpf H (0-5/HPF) Ur Squamous Epith Cells None seen (0-5/HPF) Urine Bacteria Many (>30) H (None) Ur Culture Indicated? Specimen cultured Point of care testing: Point of Care Testing Glucose POC 216 Urine Dip Bedside Urine Glucose 250 mg/dl Bedside Urine Bilirubin - Negative Bedside Urine Ketone - Negative Urine Specific [place] 1.015 Bedside Urine Occult Blood +++ Bedside Urine pH 6.0 Bedside Urine Protein + 30 Bedside Urine Urobilinogen - Negative Bedside Urine Nitrite - Negative Bedside Urine Leukocytes +++ [address] scan - abdomen/pelvis: Radiologist's Impression: PROCEDURE: CT KIDNEY URETER BLADDER (KUB) INDICATIONS: hydronephrosis on Ultrasound of liver TECHNIQUE: Axial sections were acquired from the lung bases to the pubic symphysis. Coronal and sagittal reformats were performed. For radiation dose reduction, the following was used: automated exposure control, adjustment of mA and/or kV according to patient size. COMPARISON: [facility], CT, CT CHEST ABD PEL W CON, 01/15/2022, 18:23. [facility], CT, KIDNEY/ URETER/BLADDER, 07/21/2017, 22:53. [facility], US, US ABDOMEN LIMITED, 09/14/2023, 10:44. FINDINGS: Image quality: Diagnostic. Lower Chest: Severe coronary artery calcifications. URINARY: Right Kidney: Moderate hydronephrosis. There are 2 small floating calyceal stones, in both of which measure approximately 2 mm. There is a 1 mm nonobstructing lower pole stone, as well. There is fhaa-mo-arwloedy right hydronephrosis. Right Ureter: At least moderate diffuse dilatation of the right ureter down to just above the ureterovesical junction, where there is an obstructing 2 mm stone. At the ureterovesical junction are 2 additional stones, 1 of which measures 3 mm, and the other which measures 2 mm. They may potentially have just passed into the bladder, or are at the ureterovesical junction in its distal aspect. Left Kidney: There are 2 nonobstructing stones, the larger of which measures 3 mm. No hydronephrosis. Left Ureter: Unremarkable Bladder: Normal wall thickness. There are either 2 stones at the distal aspect of the right ureterovesical junction or which have recently passed into the bladder. ABDOMEN: Liver: No contour-deforming solid mass. Gallbladder: Surgically absent Biliary ducts: No biliary dilation. Pancreas: No ductal dilation. Spleen: Size is within normal limits. Adrenal Glands: No adrenal nodules. Stomach and Bowel: Normal colonic caliber, without significant wall thickening. Moderate rectal fecal impaction. Moderately large fecal load. Peritoneum: No abnormal intraperitoneal fluid. No free air. Ventral Wall: No hernia. Abdominal Nodes: No enlarged retroperitoneal or mesenteric lymph nodes. Vessels: Aorta and inferior vena cava are normal in size. PELVIS: Pelvic Organs: Unremarkable. Pelvic Nodes: Unremarkable. Miscellaneous: No inguinal hernias are seen. Bones: Lumbar degenerative change. No lytic or blastic bony lesions. No compression fractures. IMPRESSION: 1. There is a 2 mm stone present in the distal right ureter. There are 2 additional stones which are either at the distal aspect of the right ureterovesical junction or have recently passed into the bladder. This results in moderate hydronephrosis and oczd-od-oqduokld right hydroureter. 2. There also 2 stones floating in calices in the right kidney as well as a 1 mm right renal parenchymal stone. 3. Small nonobstructing left renal stones. 4. Severe coronary artery calcifications. 5. Remote cholecystectomy. 6. Moderate rectal fecal impaction. Moderately large diffuse fecal load. Mild diverticulosis without evidence of diverticulitis. Dictated by: Pillo Lewis M.D. on 09/14/2023 at 13:38 MDM Narrative Medical decision making narrative: Patient is 78-year-old female presents today from imaging DI with hydronephrosis on her ultrasound. She is chronic ongoing back pain she really is overall comfortable. No abdominal pain nausea vomiting. Blood Work reviewed: No leukocytosis no anemia no MARLEY no electrolyte, leukocytes and bacteria in urine CT reviewed 2 mm right ureteral stone with moderate hydro nephrosis. To kidney stones also in the right renal pelvis. At this time patient overall appears well she has not required any pain medication nausea medication. She has not septic but does have a UTI. She is got hydrocodone at home. Reasonable to home. She understands that she have pain. Discharge Plan Departure Patient Disposition: Home Clinical Impression: Kidney stone on right side, Acute UTI Instructions: Kidney Stones -- Adult, DI for Urinary Tract Infection (UTI) Activity Restrictions/Additional Instructions: *You have been diagnosed with UTI and kidney stone *What to do: At this time you may experience some increased pain on your right side. You have a small stone which should be able to pass without any problem. You also have a minor bladder infection for which he will need antibiotics. *Continue to take medications as directed Keflex 500 mg twice a day for 7 days -->WALMARt *Follow up with your primary care provider in 2-3 days or call [phone] *Return to ER if you should have increasing pain confusion vomiting or any new, worsening or concerning symptoms Prescriptions: New cephalexin 500 mg capsule 500 mg PO BID 7 Days Qty: 14 0RF No Action Novolin N NPH U-100 Insulin 100 unit/mL suspension 0 unit SQ BID Qty: 0 Patient Comments: not on home medication list but has syringes and needles listed. Rx Instructions: 55 units in am, at night 40-55 units fluticasone propionate 50 mcg/actuation spray,suspension 1 spray INTRANASAL DAILY PRN (Reason: Allergy Symptoms) Patient Comments: USE 1 SPRAY(S) IN EACH NOSTRIL ONCE DAILY NEEDED acetaminophen [Tylenol 8 Hour] 650 mg Tablet Extended Release 650 mg PO DIRECTED diphenhydramine HCl [Benadryl] 25 mg Capsule 25 mg PO PRN PRN (Reason: as directed) Carmelo Plus Extra Strength 500 mg 500 mg PO PRN PRN (Reason: pain) hydrocodone-acetaminophen 5-325 mg tablet See Rx Instructions .ROUTE .COMPLEX PRN (Reason: Pain (Scale Score 1-3)) Patient Comments: TAKE 1 TABLET BY MOUTH EVERY 4 TO 6 HOURS NEEDED Rx Instructions: i tab q 4-6 hr by mouth as needed for pain Referrals: Lion Coats MD [Primary Care Provider] - Stand Alone Forms: Patient Portal/API
[2023-09-14 12:35] LABS: Bacteria Urine Many (>30); Culture Indicated Urine Specimen Cultured; RBC Urine 1-5/HPF (0-5/HPF); Squamous Epithelial Cell Urine None Seen (0-5/HPF); WBC Urine >100/HPF (0-5/HPF)
[2023-09-14 12:54] LABS: Alanine Aminotransferase 28 IU/L (<35); Albumin 3.8 g/dL (3.5-5.0); Albumin Globulin Ratio 1.2 (1.0-2.8); Alkaline Phosphatase 63 U/L (38-126); Aspartate Aminotransferase 27 IU/L (14-36); BUN Creatinine Ratio 29.7 (6-22); Bilirubin Total 0.7 mg/dL (0.2-1.3); Blood Urea Nitrogen 22 mg/dL (7-17); Carbon Dioxide 26 mmol/L (22-32); Chloride 99 mmol/L (98-107); Estimated Glomerular Filt Rate > 60 mL/min (>60); Globulin 3.3 g/dL (1.7-4.1); Glucose 244 mg/dL (80-110); HEMOLYSIS 43 (0-50); Lipase 22 U/L (23-300); Potassium 4.5 mmol/L (3.4-5.1); Sodium 133 mmol/L (137-145); Total Protein 7.1 g/dL (6.3-8.2)
[2023-09-14 12:59] LABS: Add Manual Diff / Slide Review NO; Basophils Absolute Auto 0 /uL (0-100); Basophils Percent Auto 0.5 % (0-2); Eosinophils Absolute Auto 0 /uL (0-450); Eosinophils Percent Auto 0.5 % (2-4); Hematocrit 40.3 % (36-46); Hemoglobin 13.9 g/dL (12.0-16.0); Lymphocytes Absolute Auto 3200 /uL (1100-4500); Lymphocytes Percent Auto 34.3 % (25-40); Mean Corpuscular HGB Conc 34.6 % (30-36); Mean Corpuscular Hemoglobin 33.9 PG (26-34); Mean Corpuscular Volume 97.9 fL (80-100); Monocytes Absolute Auto 600 /uL (0-900); Monocytes Percent Auto 6.6 % (3-14); Neutrophils Absolute Auto 5400 /uL (1500-7000); Neutrophils Percent Auto 58.1 % (50-75); Platelet Count 250 X10^3/uL (150-400); Red Blood Cell Count 4.11 X10^6/uL (4.0-5.2); Red Cell Distribution Width 13.6 % (11.6-14.8); White Blood Cell Count 9.4 X10^3/uL (4.5-11.0)
[2023-09-14] MEDS: ONDANSETRON 4 MG ODT SL (13:54)
== END 2023-09-14 14:26 | disposition home or self-care (01) ==
PROVIDERS: Emergency Provider Emergency Medicine; PCP Family Medicine
DX: N20.0 Calculus of kidney (principal); N39.0 Urinary tract infection, site not specified; N13.0 Hydronephrosis with ureteropelvic junction obstruction; R74.01 Elevation of levels of liver transaminase levels; Z90.49 Acquired absence of other specified parts of digestive tract
CPT/HCPCS: 36415; 74176; 76705; 80053; 81003; 81015; 82962; 83690; 85025; 87077; 87086; 87186; 99284

== ENCOUNTER → 2023-09-14 | Outpatient (CLI) | payer MEDICARE, OTHER, SELFPAY ==
[2022-01-15 20:04] VITALS: BMI 25.8
--- NOTE | 2023-09-14 | DI.US.S_ITS ---
PROCEDURE: US ABDOMEN LIMITED INDICATIONS: ELEVATED LIVER ENZYMES TECHNIQUE: Real-time scanning was performed of the abdominal and retroperitoneal organs, with image documentation. COMPARISON: None. FINDINGS: Liver: Normal in size. Increased in echogenicity. Gallbladder: Surgically absent. Biliary ducts: Not well seen. Pancreas: Not well seen. Incidental note of moderate right hydroureteronephrosis with debris in the urinary bladder and stone at the right ureterovesicular junction. Urinary bladder wall thickening posteriorly measuring 8 millimeters. No left hydronephrosis. Miscellaneous: No free abdominal fluid. IMPRESSION: 1. Increased echogenicity of the liver, most consistent with hepatic steatosis. 2. Status post cholecystectomy. The bile ducts and pancreas are not well seen. 3. Incidental note of moderate right hydroureteronephrosis with stone at the right UVJ. Bladder wall thickening. Findings were communicated to Dr. Winters by the distribution engineering technologist and patient was sent to the ED. Dictated by: Sam Richardson M.D. on 09/14/2023 at 15:37 Approved by: Sam Richardson M.D. on 09/14/2023 at 15:40
== END ==
LOC: US 10:17
PROVIDERS: PCP Family Medicine; Referring Provider Family Medicine; Visit Provider Family Medicine
DX: N13.0 Hydronephrosis with ureteropelvic junction obstruction (principal); R74.01 Elevation of levels of liver transaminase levels; Z90.49 Acquired absence of other specified parts of digestive tract
CPT/HCPCS: 76705

== ENCOUNTER 2025-06-07 08:24 | Inpatient (IN) | payer MEDICARE, OTHER, SELFPAY ==
[2022-01-15 20:04] VITALS: BMI 25.8
[2025-06-07] VITALS (16 sets, daily range): BP systolic 137–188; BP diastolic 60–91; PULSE 80–114; RESP 15–23; TEMP 36–37.6; O2SAT 92–100; BMI 19.6
--- NOTE | 2025-06-07 08:52 | EKG_ITS ---
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
--- NOTE | 2025-06-07 09:03 | ED.NECK ---
HPI - Neck Pain/Injury General Chief Complaint: Neck Pain/Injury Stated Complaint: N/V/D T-4 Time Seen by Provider: 06/07/25 08:51 Mode of arrival: EMS History of Present Illness HPI Narrative: Patient is a 80-year-old female history of cardiomyopathy, ataxia, hypertension, diabetes, possible anterior cord syndrome with cervical surgery prior abdominal ulcer surgery presenting today with nausea vomiting diarrhea for the last 2 days. Keeping very little down. Some mild abdominal pain. Has been reports that he did try to get some Gatorade down her but it really has not been very much. She is noted to be tachycardic. Denies any chest pain shortness of breath or weakness. no fever no chills no one else is sick at home. She is bed bound, at home with palliative care. Related Data Home Medications ?Medication ?Instructions ?Recorded ?Confirmed insulin NPH isoph U-100 human 100 0 unit SQ BID ##0 07/21/17 01/15/22 unit/mL subcutaneous suspension (Novolin N NPH U-100 Insulin isophane) Carmelo Plus Extra Strength 500 mg PO PRN PRN pain 07/11/19 01/15/22 acetaminophen 650 mg 650 mg PO DIRECTED 07/11/19 01/15/22 tablet,extended release (Tylenol 8 Hour) diphenhydramine HCl 25 mg capsule 25 mg PO PRN PRN as directed 07/11/19 01/15/22 (Benadryl) fluticasone propionate 50 1 spray intranasal DAILY PRN 07/11/19 01/15/22 mcg/actuation nasal Allergy Symptoms spray,suspension hydrocodone 5 mg-acetaminophen 325 See Rx Instructions .Route 01/15/22 01/15/22 mg tablet .COMPLEX PRN Pain (Scale Score 1-3) Allergies Allergy/AdvReac Type Severity Reaction Status Date / Time Sulfa (Sulfonamide Allergy Intermediate Rash Verified 07/11/19 14:37 Antibiotics) tamsulosin Allergy Intermediate Swelling Verified 07/11/19 14:37 of the Eye cetirizine (From ZYRTEC) Allergy Unknown Verified 07/11/19 13:09 Estrogens (ESTROGENS) Allergy Unknown Verified 07/11/19 13:09 ezetimibe (From ZETIA) Allergy Unknown Verified 07/11/19 13:09 Progestins (PROGESTINS) Allergy Unknown Verified 07/11/19 13:09 ranitidine (From ZANTAC) Allergy Unknown Verified 07/11/19 13:09 rosiglitazone (From AVANDIA) Allergy Unknown Verified 07/11/19 13:09 simvastatin (From ZOCOR) Allergy Unknown Verified 07/11/19 13:09 albuterol AdvReac Intermediate Anxiety Verified 07/11/19 14:37 meloxicam (From Mobic) AdvReac Intermediate Dizziness Verified 07/11/19 14:37 TRIPLIPIX Allergy Unknown Uncoded 07/11/19 13:09 Patient History Medical History Sciatica Anxiety and depression Gastric ulcer Allergic rhinitis IBS (irritable bowel syndrome) Peripheral vascular disease Insulin dependent diabetes mellitus Essential hypertension Hyperlipidemia Hiatal hernia Surgical History History of gastric surgery S/P colonoscopic polypectomy History of carpal tunnel surgery Family History Mother Diabetes mellitus Myocardial infarct Renal failure Father Diabetes mellitus Parkinson disease Social History household members: spouse, family and children Smoking Status: Unknown if ever smoked alcohol intake: never Smoking Status: Unknown if ever smoked alcohol intake frequency: 0-2 drinks per day Exam Initial Vital Signs Initial Vital Signs: Vital Signs Pulse Rate 95 H 06/07/25 08:26 Respiratory Rate 16 06/07/25 08:26 Blood Pressure 140/91 H 06/07/25 08:26 Pulse Oximetry 96 06/07/25 08:26 GENERAL: Alert week 80-year-old male and in no acute distress. HEENT: Head atraumatic,EOMI, pupils reactive, face symmetric, moist mucous membranes CARDIOVASCULAR: Tachycardic no murmur RESPIRATORY: Breath sounds equal bilaterally, no wheezes rales or rhonchi. ABDOMEN: Soft, nontender. Normoactive bowel sounds all 4 quadrants. No guarding or rebound. EXTREMITIES: Normal range of motion, no clubbing or edema. Neurovascularly intact NEUROLOGICAL: Alert and oriented x4. Moving extremities at base SKIN: Warm, dry, no laceration, no petechiae, no rashes or lesions. Course Orders Ordered: ED Orders 06/07/25 08:47 EKG-12 Lead Stat 06/07/25 09:03 Complete Blood Count AUTO DIFF Stat Comprehensive Metabolic Panel Stat Lactate (Lactic Acid) Stat Lipase Stat NT-proBNP (BNP-Adult 18+) Stat PTT Partial Thromboplastin [place] Q6H Prothrombin Time INR Routine Troponin & CK Cardiac Panel Stat 06/07/25 09:08 CT abdomen pelvis w con Stat XR chest 1V Stat 06/07/25 09:38 Covid-19 + FLU A/B + RSV - PCR Stat 06/07/25 10:36 Trop I [Troponin I] Stat 06/07/25 10:51 EKG-12 Lead Stat 06/07/25 16:30 PTT Partial Thromboplastin [place] Q6H 06/07/25 22:30 PTT Partial Thromboplastin [place] Q6H 06/08/25 04:30 PTT Partial Thromboplastin [place] Q6H 06/08/25 05:00 Hemoglobin and Hematocrit DAILY Platelet Count DAILY 06/09/25 05:00 Hemoglobin and Hematocrit DAILY Platelet Count DAILY Acetaminophen (Acetaminophen 325 Mg Tablet) 650 mg PO Q6H PRN PRN Reason: Fever/Mild Pain (1-3) Clopidogrel Bisulfate (Clopidogrel 75 Mg Tablet) 75 mg PO DAILY KITA Heparin Sodium/Dextrose (Heparin Drip) 25,000 unit in 500 mls @ 12.084 mls/hr IV CONT KITA; Protocol Last Admin: 06/07/25 11:44 Dose: 12 units/kg/hr, 12.084 mls/hr Documented By: JAKE Co-signed By: LLOYD Sodium Chloride (Normal Saline 0.9%) 1,000 mls @ 125 mls/hr IV CONT KITA Last Admin: 06/07/25 13:03 Dose: 125 mls/hr Documented By: JAKE Naloxone HCl (Naloxone 0.4 Mg/Ml Vial) 0.2 mg IV Q2MIN PRN PRN Reason: Opiate Reversal Ondansetron HCl (Ondansetron 4 Mg/2 Ml Inj) 4 mg IV Q4HR PRN PRN Reason: Nausea And Vomiting Last Admin: 06/07/25 14:33 Dose: 4 mg Documented By: LUDMILAK Discontinued Medications Aspirin (Aspirin 81 Mg Chew Tab) 324 mg PO NOW ONE Stop: 06/07/25 10:23 Last Admin: 06/07/25 12:06 Dose: Not Given Documented By: JAKE Aspirin (Aspirin Ec 325 Mg Tablet) 325 mg PO NOW ONE Stop: 06/07/25 11:54 Last Admin: 06/07/25 12:01 Dose: 325 mg Documented By: JAKE Heparin Sodium (Porcine) (Heparin 5,000 Unit/Ml Vial) 3,000 unit 60 unit/kg (3000 unit) IV NOW ONE Stop: 06/07/25 10:23 Last Admin: 06/07/25 11:43 Dose: 3,000 unit Documented By: JAKE Hydromorphone HCl (Hydromorphone 1 Mg/Ml Syringe) 0.5 mg IV NOW ONE Stop: 06/07/25 10:14 Last Admin: 06/07/25 10:16 Dose: 0.5 mg Documented By: JAKE Sodium Chloride (Normal Saline 0.9%) 1,000 mls @ 1,000 mls/hr IV BOLUS ONE Stop: 06/07/25 10:07 Last Infusion: 06/07/25 12:08 Dose: Infused Documented By: Admin: 06/07/25 09:22 Dose: 1,000 mls/hr Documented By: JAKE Metoprolol Tartrate (Metoprolol Ir 25 Mg Tablet) 12.5 mg PO BID KITA Morphine Sulfate (Morphine 4 Mg/Ml Inj) 4 mg IV NOW ONE Stop: 06/07/25 09:09 Last Admin: 06/07/25 09:22 Dose: 4 mg Documented By: JAKE Ondansetron HCl (Ondansetron 4 Mg/2 Ml Inj) 4 mg IV NOW ONE Stop: 06/07/25 09:09 Last Admin: 06/07/25 09:22 Dose: 4 mg Documented By: JAKE Vital Signs Vital signs: Vital Signs - 8 hr 06/07/25 08:26 06/07/25 08:26 06/07/25 08:30 Temperature Pulse Rate 95 H 112 H Respiratory Rate 16 Blood Pressure 140/91 H Pulse Oximetry 96 97 Oxygen Delivery Method 06/07/25 08:31 06/07/25 09:00 06/07/25 09:00 Temperature 99.6 F Pulse Rate 90 112 H Respiratory Rate 15 18 Blood Pressure 140/91 H 137/74 Pulse Oximetry 97 95 Oxygen Delivery Method Room Air 06/07/25 09:30 06/07/25 09:30 06/07/25 10:19 Temperature Pulse Rate 114 H 89 Respiratory Rate 20 Blood Pressure 147/72 H Pulse Oximetry 96 99 Oxygen Delivery Method 06/07/25 10:20 06/07/25 10:20 06/07/25 10:30 Temperature Pulse Rate 90 92 H Respiratory Rate 18 23 Blood Pressure 188/81 H Pulse Oximetry 95 96 Oxygen Delivery Method 06/07/25 11:00 06/07/25 11:01 06/07/25 11:01 Temperature Pulse Rate 91 H 113 H Respiratory Rate 22 15 Blood Pressure 184/76 H Pulse Oximetry 99 100 Oxygen Delivery Method 06/07/25 11:30 Temperature Pulse Rate 88 Respiratory Rate Blood Pressure Pulse Oximetry 99 Oxygen Delivery Method MDM - Neck Pain/Injury Lab Data 06/07/25 09:03 06/07/25 09:03 Labs: Lab Results 06/07/25 06/07/25 06/07/25 Range/Units 09:03 09:38 10:36 WBC 4.6 (4.5-11.0) X10^3/uL RBC 4.10 (4.0-5.2) X10^6/uL Hgb 13.7 (12.0-16.0) g/dL Hct 39.6 (36-46) % MCV 96.5 (80-100) fL MCH 33.3 (26-34) PG MCHC 34.5 (30-36) % RDW 13.1 (11.6-14.8) % Plt Count 272 (150-400) X10^3/uL Neut % (Auto) 57.4 (50-75) % Lymph % (Auto) 33.7 (25-40) % [place] % (Auto) 8.6 (3-14) % Eos % (Auto) 0.0 L (2-4) % Baso % (Auto) 0.3 (0-2) % Neut # (Auto) 2600 (4627-6156) /uL Lymph # (Auto) 1500 (0668-9165) /uL [place] # (Auto) 400 (0-900) /uL Eos # (Auto) 0 (0-450) /uL Baso # (Auto) 0 (0-100) /uL PT 15.8 H (9.4-12.5) SECONDS INR 1.4 H (0.9-1.3) APTT 51 H (25.1-36.5) SECONDS Sodium 133 L (137-145) mmol/L Potassium 3.0 L (3.4-5.1) mmol/L Chloride 100 (98-107) mmol/L Carbon Dioxide 27 (22-32) mmol/L BUN 13 (7-17) mg/dL Creatinine 0.65 (0.52-1.04) mg/dL Estimated GFR > 60 (>60) mL/min BUN/Creatinine Ratio 20.0 (6-22) Glucose 217 H (70-99) mg/dL Lactate 2.2 H (0.7-2.1) mmol/L Calcium 8.3 L (8.4-10.2) mg/dL Total Bilirubin 0.8 (0.2-1.3) mg/dL AST 57 H (14-36) IU/L ALT 17 (<35) IU/L Alkaline Phosphatase 66 (38-126) U/L Total Creatine Kinase 105 (30-135) U/L Troponin I 1.040 H* 1.160 H* (0.01-0.034) ng/mL NT-Pro-B Natriuret Pep 2140 H (<450) pg/mL Total Protein 6.4 (6.3-8.2) g/dL Albumin 3.3 L (3.5-5.0) g/dL Globulin 3.1 (1.7-4.1) g/dL Albumin/Globulin Ratio 1.1 (1.0-2.8) Lipase 25 (23-300) U/L SARS-CoV-2 (PCR) Positive H (Negative) Influenza A (RT-PCR) Flu a negative (NEGATIVE) Influenza B (RT-PCR) Flu b negative (NEGATIVE) RSV (PCR) Negative (Negative) ECG Data Attestation: I personally reviewed and interpreted this ECG as follows: Prior ECG tracings: available for review Interpretation: Sinus tachycardia rate 110 [place] interval 142 QRS 70 QTC 4 62 appears significantly better than her prior EKGs in 2021 where there was deep T-wave inversions. MDM Narrative Medical decision making narrative: MDM CC: Nausea vomiting diarrhea for 2 days Complicating co-morbidities: Bed-bound chronic neck injury and weakness Data collected from: Patient family Medical records reviewed: Previous records show she was admitted for 2021 concern for CVA ultimately transferred to [facility] concern for anterior cord syndrome Differential considered: Viral illness gastrointestinal illness acute coronary syndrome sepsis Exam documented above, pertinent findings include: Alert week 80 year-old female slightly dry mucous membranes abdomen soft nontender no evidence of fluid over Lab Test results independently reviewed as above. Pertinent findings: COVID positive Troponin 1.04--> 1.16 CBC shows WBC of 4.6 no anemia CMP mild hypokalemia potassium is 3.0, Lactate 2.2 Bilirubin 0.8 AST 57 ALT 17 Independently reviewed EKG as above Sinus tachycardia Imaging studies independently reviewed: CT abdomen pelvis: Inflamed U changes along posterior wall bladder urothelial enhancement no evidence of acute pyelonephritis suspicious for cystitis no obstructive uropathy bilateral pleural effusion Chest x-ray no acute cardiopulmonary process Consultations: Arpan accepts to inpatient 11:37 [place]avan ok to keep agrees with heparin we will see patient in consult in the hospital Treatments: IV Fluids ASA Heparin Morphine and Dilaudid for chronic ongoing neck pain Re-evaluations: Patient is given morphine and Dilaudid here in the ED and then required oxygen. However she did not require oxygen before that I suspect this is medication related rather than COVID related Discussion: Patient is 80-year-old female no known history of coronary artery disease presenting today with diarrhea nausea. She is found to be positive for COVID with positive troponins consistent with NSTEMI. She has no EKGs changes. Other abnormal blood work shows slightly elevated lactate 2.2 with mild hypokalemia 3.0. She remains hemodynamically stable, requiring a small amount of nasal cannula for oxygen but to be medication related Critical Care Time Critical Care Time Critical Care Time: Yes Total Critical Care Time: 32 Attestation: The high probability of a clinically significant, sudden or life threatening deterioration of the [cardiovascular] system(s) required my full and direct attention, intervention and personal management. The aggregate critical care time was 32 minutes. This time is in addition to time spent performing reported procedures but includes the following: [x] Data Review and interpretation [x] Patient assessment and monitoring of vital signs [x] Documentation [x] Medication orders and management Discharge Plan Departure Patient Disposition: Admitted As Inpatient Clinical Impression: COVID-19, Acute non-ST elevation myocardial infarction (NSTEMI), Acute hypokalemia Admit Date/Time: 06/07/25 11:48 Admit Provider: Jarad Antony
--- NOTE | 2025-06-07 09:08 | DI.CT.S_ITS ---
PROCEDURE: CT ABDOMEN PELVIS W CON INDICATIONS: ab pain vomiting prior surgery TECHNIQUE: After the administration of intravenous contrast, axial sections acquired from the lung bases to the pubic symphysis. Coronal and sagittal reformats were performed. For radiation dose reduction, the following was used: automated exposure control, adjustment of mA and/or kV according to patient size. COMPARISON: None. FINDINGS: Image quality: Diagnostic. Lower Chest: Small bilateral pleural effusions, right greater than left. Trace pericardial effusion. Normal size heart with dense mitral annular calcification. Partially imaged coronary artery calcification. ABDOMEN: Liver: Marked hepatic hypodensity indicating steatosis. No focal mass. Gallbladder: Surgically absent. Biliary ducts: Appropriate biliary tree caliber post cholecystectomy. Pancreas: Diminutive pancreas without ductal dilatation or peripancreatic inflammation. Spleen: Size is within normal limits. Adrenal Glands: No adrenal nodules. Kidneys and Ureters: Normal size and symmetric enhancement. Mild prominence of the right extrarenal pelvis. Moderate diffuse right urothelial enhancement. Moderate right hydroureter to the level of the urinary bladder. Mild left hydroureter and slight urothelial enhancement in the distal ureter. Bilateral nonobstructing intrarenal calculi, the largest on the right measuring about 3 mm. No ureteral calculi. Stomach and Bowel: Stomach and small bowel loops are normal caliber. The colon is fairly decompressed. Mild subserosal inflammation surrounding the ascending colon.. Mild diverticulosis of the descending segment. Mild circumferential wall thickening, mucosal hyperemia, and subserosal inflammation surrounding the rectum. Peritoneum: No abnormal intraperitoneal fluid. No free air. Ventral Wall: No significant ventral hernia. Abdominal Nodes: Several reactive mesenteric lymph nodes. No pathologic adenopathy. Vessels: The abdominal aorta, IVC, and portal vein are of normal caliber. Heavy noncalcified atherosclerotic aortic plaque. PELVIS: Pelvic Organs: Uterus and ovaries are normal. Bladder: Diffuse thickening of the posterior urinary bladder wall, mild hyperemia Cantu and perivesicular inflammation. There is prominent anti dependent air in the urinary bladder. No bladder calculi. Pelvic Nodes: No enlarged lymph nodes. Miscellaneous: No inguinal hernias are seen. Bones: No aggressive osseous abnormality. Chronic appearing, degenerative facet arthropathy and trace anterolisthesis L5-S1. Prominent bilateral acetabular spurs in both hips. IMPRESSION: Inflammatory changes along the posterior wall of the urinary bladder and urothelial enhancement extending into the proximal collecting systems, right more involved than left. No CT evidence of acute pyelonephritis. Findings are suspicious for cystitis with gas-forming organism versus instrumentation. No obstructive uropathy. Bilateral nonobstructing nephrolithiasis. Findings suggestive of ascending colitis and proctitis. This could be secondary to infection, inflammation, or may be reactive. Prominent hepatic steatosis. Bilateral pleural effusions. Dictated by: Jennifer Goode M.D. on 06/07/2025 at 10:23 Approved by: Jennifer Goode M.D. on 06/07/2025 at 10:35
--- NOTE | 2025-06-07 09:08 | DI.RAD.S_ITS ---
PROCEDURE: XR CHEST 1V INDICATIONS: chest pain TECHNIQUE: One view of the chest was acquired. COMPARISON: [facility], CR, XR CHEST 2V, 07/11/2019, 13:31. FINDINGS: Surgical changes and devices: Upper abdominal clips. Lungs and pleura: Lungs are clear. No pleural effusions or pneumothorax. Mediastinum: Mediastinal contours appear normal. Heart size is normal. Bones and chest wall: No suspicious bony lesions. Overlying soft tissues appear unremarkable. IMPRESSION: No acute cardiopulmonary abnormality is seen. Dictated by: Pillo Lewis M.D. on 06/07/2025 at 9:55 Approved by: Pillo Lewis M.D. on 06/07/2025 at 9:55
[2025-06-07] MEDS: ONDANSETRON 4 MG/2 ML INJ IV ×2 (09:22→14:33)
[2025-06-07] MEDS: MORPHINE 4 MG/ML INJ IV (09:22)
[2025-06-07] MEDS: SODIUM CHLORIDE 0.9% 1,000 ML 1000 ML IV (09:22)
[2025-06-07 09:34] LABS: Add Manual Diff / Slide Review NO; Hematocrit 39.6 % (36-46); Hemoglobin 13.7 g/dL (12.0-16.0); Lymphocytes Absolute Auto 1500 /uL (1100-4500); Mean Corpuscular HGB Conc 34.5 % (30-36); Mean Corpuscular Hemoglobin 33.3 PG (26-34); Mean Corpuscular Volume 96.5 fL (80-100); Platelet Count 272 X10^3/uL (150-400)
[2025-06-07 09:42] LABS: Alanine Aminotransferase 17 IU/L (<35); Albumin 3.3 g/dL (3.5-5.0); Albumin Globulin Ratio 1.1 (1.0-2.8); Alkaline Phosphatase 66 U/L (38-126); Blood Urea Nitrogen 13 mg/dL (7-17); Calcium 8.3 mg/dL (8.4-10.2); Carbon Dioxide 27 mmol/L (22-32); Chloride 100 mmol/L (98-107); Creatine Kinase 105 U/L (30-135); Estimated Glomerular Filt Rate > 60 mL/min (>60); Globulin 3.1 g/dL (1.7-4.1); Glucose 217 mg/dL (70-99); HEMOLYSIS 33 (0-50); Lipase 25 U/L (23-300); Potassium 3.0 mmol/L (3.4-5.1); Sodium 133 mmol/L (137-145); Total Protein 6.4 g/dL (6.3-8.2)
[2025-06-07 09:43] LABS: Lactate (Lactic Acid) 2.2 mmol/L (0.7-2.1)
[2025-06-07 09:53] LABS: NT-proBNP (BNP-Adult 18+) 2140 pg/mL (<450)
[2025-06-07 09:58] LABS: Troponin I 1.040 ng/mL (0.01-0.034)
--- NOTE | 2025-06-07 10:17 | EKG_ITS ---
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
[2025-06-07 10:21] LABS: Influenza A - CEPHEID Flu A NEGATIVE (NEGATIVE); Influenza B - CEPHEID Flu B NEGATIVE (NEGATIVE)
[2025-06-07 10:35] LABS: COVID-19 CEPHEID 4-PLEX PCR POSITIVE (Negative)
[2025-06-07 10:59] LABS: INR 1.4 (0.9-1.3); Prothrombin Time 15.8 SECONDS (9.4-12.5)
[2025-06-07 11:06] LABS: Reflexed Lactate in 2 Hours Y
[2025-06-07 11:14] LABS: Troponin I 1.160 ng/mL (0.01-0.034)
[2025-06-07 11:26] LABS: PTT Partial Thromboplastin Tim 51 SECONDS (25.1-36.5)
[2025-06-07] MEDS: HEPARIN 5,000 UNIT/ML VIAL 3000 UNIT IV (11:43)
[2025-06-07] MEDS: HEPARIN DRIP 25,000 UNIT/500 ML IV.SOLN 12.084 UNIT IV (11:44)
[2025-06-07] MEDS: ASPIRIN EC 325 MG TABLET PO (12:01)
--- NOTE | 2025-06-07 12:34 | PM.HP.1 ---
History of Present Illness History of Present Illness Date Patient Seen: 06/07/25 Time Patient Seen: 14:45 Chief complaint: N/V/D T-4 Narrative: Patient was a 80-year-old female with progressive weakness of her left arm and leg who is now essentially bed-bound and has been for some time at her home in [place]. She lives with her and son. This is felt to relate to a spinal surgery with incomplete recovery after. The patient has developed orthostatic hypotension in his unable to really get out of bed up to a chair because of dizziness and a chronic basis. She also has a history of cardiac murmur, this is evaluated several years ago by [facility] and said to be a functional murmur. He was no history of CAD or IL. She developed nausea and vomiting 3 days ago as well as diarrhea. She does have IBS. No fevers, chills, or URI symptoms. She came to the hospital today for that reason and was found to have elevated troponin with normal ECG consistent with NSTEMI as well as being COVID positive. Chest x-ray was clear. She was discussed with Cardiology, Dr. Go. Recommendations for standard treatment of NSTEMI with dual antiplatelet therapy and IV heparin drip as well as beta blockade and atorvastatin. I met with the patient, , and son. All questions were answered. [facility] Medical History Sciatica Anxiety and depression Gastric ulcer Allergic rhinitis IBS (irritable bowel syndrome) Peripheral vascular disease Insulin dependent diabetes mellitus Essential hypertension Hyperlipidemia Hiatal hernia Surgical History History of gastric surgery S/P colonoscopic polypectomy History of carpal tunnel surgery Family History Mother Diabetes mellitus Myocardial infarct Renal failure Father Diabetes mellitus Parkinson disease Social History household members: spouse, family and children Smoking Status: Unknown if ever smoked alcohol intake: never Meds Home Medications and Allergies Home Medications ?Medication ?Instructions ?Recorded ?Confirmed ?Type insulin NPH isoph U-100 human 100 0 unit SQ BID ##0 07/21/17 01/15/22 History unit/mL subcutaneous suspension (Novolin N NPH U-100 Insulin isophane) Carmelo Plus Extra Strength 500 mg PO PRN PRN pain 07/11/19 01/15/22 History acetaminophen 650 mg 650 mg PO DIRECTED 07/11/19 01/15/22 History tablet,extended release (Tylenol 8 Hour) diphenhydramine HCl 25 mg capsule 25 mg PO PRN PRN as directed 07/11/19 01/15/22 History (Benadryl) fluticasone propionate 50 1 spray intranasal DAILY PRN 07/11/19 01/15/22 History mcg/actuation nasal Allergy Symptoms spray,suspension hydrocodone 5 mg-acetaminophen 325 See Rx Instructions .Route 01/15/22 01/15/22 History mg tablet .COMPLEX PRN Pain (Scale Score 1-3) Allergies Allergy/AdvReac Type Severity Reaction Status Date / Time Sulfa (Sulfonamide Allergy Intermediate Rash Verified 07/11/19 14:37 Antibiotics) tamsulosin Allergy Intermediate Swelling Verified 07/11/19 14:37 of the Eye cetirizine (From ZYRTEC) Allergy Unknown Verified 07/11/19 13:09 Estrogens (ESTROGENS) Allergy Unknown Verified 07/11/19 13:09 ezetimibe (From ZETIA) Allergy Unknown Verified 07/11/19 13:09 Progestins (PROGESTINS) Allergy Unknown Verified 07/11/19 13:09 ranitidine (From ZANTAC) Allergy Unknown Verified 07/11/19 13:09 rosiglitazone (From AVANDIA) Allergy Unknown Verified 07/11/19 13:09 simvastatin (From ZOCOR) Allergy Unknown Verified 07/11/19 13:09 albuterol AdvReac Intermediate Anxiety Verified 07/11/19 14:37 meloxicam (From Mobic) AdvReac Intermediate Dizziness Verified 07/11/19 14:37 TRIPLIPIX Allergy Unknown Uncoded 07/11/19 13:09 Review of Systems Review of Systems Narrative: All else reviewed and otherwise unremarkable except as noted in the history and physical. Exam Vital Signs (past 8 hours): - 06/07/25 08:26 06/07/25 08:26 06/07/25 08:30 Temperature Pulse Rate 95 H 112 H Respiratory Rate 16 Blood Pressure 140/91 H Pulse Oximetry 96 97 Oxygen Delivery Method 06/07/25 08:31 06/07/25 09:00 06/07/25 09:00 Temperature 99.6 F Pulse Rate 90 112 H Respiratory Rate 15 18 Blood Pressure 140/91 H 137/74 Pulse Oximetry 97 95 Oxygen Delivery Method Room Air 06/07/25 09:30 06/07/25 09:30 06/07/25 10:19 Temperature Pulse Rate 114 H 89 Respiratory Rate 20 Blood Pressure 147/72 H Pulse Oximetry 96 99 Oxygen Delivery Method 06/07/25 10:20 06/07/25 10:20 06/07/25 10:30 Temperature Pulse Rate 90 92 H Respiratory Rate 18 23 Blood Pressure 188/81 H Pulse Oximetry 95 96 Oxygen Delivery Method 06/07/25 11:00 06/07/25 11:01 06/07/25 11:01 Temperature Pulse Rate 91 H 113 H Respiratory Rate 22 15 Blood Pressure 184/76 H Pulse Oximetry 99 100 Oxygen Delivery Method 06/07/25 11:30 06/07/25 12:00 06/07/25 12:00 Temperature Pulse Rate 88 110 H Respiratory Rate 21 Blood Pressure 185/81 H Pulse Oximetry 99 92 Oxygen Delivery Method Oxygen Delivery Method Room Air Objective Labs 06/07/25 09:03 06/07/25 09:03 Labs: Laboratory Results - last 24 hr 06/07/25 06/07/25 06/07/25 09:03 09:38 10:36 WBC 4.6 RBC 4.10 Hgb 13.7 Hct 39.6 MCV 96.5 MCH 33.3 MCHC 34.5 RDW 13.1 Plt Count 272 Neut % (Auto) 57.4 Lymph % (Auto) 33.7 [place] % (Auto) 8.6 Eos % (Auto) 0.0 L Baso % (Auto) 0.3 Neut # (Auto) 2600 Lymph # (Auto) 1500 [place] # (Auto) 400 Eos # (Auto) 0 Baso # (Auto) 0 PT 15.8 H INR 1.4 H APTT 51 H Sodium 133 L Potassium 3.0 L Chloride 100 Carbon Dioxide 27 BUN 13 Creatinine 0.65 Estimated GFR > 60 BUN/Creatinine Ratio 20.0 Glucose 217 H Lactate 2.2 H Calcium 8.3 L Total Bilirubin 0.8 AST 57 H ALT 17 Alkaline Phosphatase 66 Total Creatine Kinase 105 Troponin I 1.040 H* 1.160 H* NT-Pro-B Natriuret Pep 2140 H Total Protein 6.4 Albumin 3.3 L Globulin 3.1 Albumin/Globulin Ratio 1.1 Lipase 25 SARS-CoV-2 (PCR) Positive H Influenza A (RT-PCR) Flu a negative Influenza B (RT-PCR) Flu b negative RSV (PCR) Negative Assessment & Plan Time-Based Coding :: [TOTAL MINUTES] spent with patient and on the chart (including review of chart, obtaining history, exam, reviewing outside data, placing orders, documenting exam and treatment plan, and counseling patient) on [DATE].
[2025-06-07 12:53] LABS: Lactate 2HR (Lactic Acid Rflx) 2.3 mmol/L (0.7-2.1)
[2025-06-07] MEDS: SODIUM CHLORIDE 0.9% 1,000 ML 125 ML IV ×2 (13:03→23:04)
[2025-06-07 13:40] LABS: Troponin I 1.200 ng/mL (0.01-0.034)
--- NOTE | 2025-06-07 14:19 | PC.WOUNDPHOT ---
Wound Photo Photo taken by Yoselin Christie RN 06/07/25.
--- NOTE | 2025-06-07 15:25 | DI.ECHO.S_ITS ---
[place] [facility] : : [address] : : [place] : : [id number] : : Phone: [phone] Echocardiogram Report + + :Name: BARAK RAMIREZ Study Date: 06/08/2025 Height: 63 in : :[facility] ReadingLocation: Weight: 111 lb : : Gender: Female BSA: 1.5 m2 : :: 1945 Age: 80 yrs BP: 154/60 mmHg: :Reason For Study: NSTEMI : :Ordering Physician: DIANNE, : :SUNDEEP Garrett Performed By: Lea Gonzalez : :Referring: SUNDEEP DEAN : + + Interpretation Summary The left ventricular cavity is small. The left ventricle is hyperdynamic. The ejection fraction is estimated to be 75-80%. Almost systolic obliteration of LV cavity. MV E/A: 0.96 Med Peak E' Kwaku: 4.7 cm/sec E/E' med: 30.5 The right ventricle is normal size. The right ventricular systolic function is normal. There is moderate to severe mitral annular calcification. The mitral valve mean gradient is 5.8 mmHg. There is moderate mitral stenosis. Aortic valve type leaflet with moderate to severe calcification. Almost immobile noncoronary cusp and some restriction of right coronary cusp. Left coronary cusp is pliable. Peak aortic velocity 2.89 m/s, mean gradient 16, calculated aortic valve area 1.3 cm square. sev ratio: 0.51 overall mild to moderate aortic stenosis. Previous aortic velocity 1.82 m/s. The IVC is of normal diameter and collapses greater than 50% with a sniff. This suggests a low right atrial pressure of 3 mm Hg. Mild atherosclerotic plaque(s) in the aortic arch. Based on IVC, LV cavity, patient appears to have volume depletion. Correlate clinically. Procedure: A two-dimensional transthoracic echocardiogram with color flow and Doppler was performed. The study quality was technically adequate. Comparison is made with the echocardiogram of 07/12/2019. The heart rate ranged between 84-117 bpm during the study. Rhythm is not clear however irregular with frequent PACs. Across mitral valve Doppler evaluation, clear- cut A wave seen suggestive of not A-fib. Left Ventricle: There is mild concentric left ventricular hypertrophy. The left ventricular cavity is small. There is moderate proximal septal thickening noted. There is no thrombus. The ejection fraction is estimated to be 75-80%. The left ventricle is hyperdynamic. There are no focal wall motion abnormalities. MV E/A: 0.96 Med Peak E' Kwaku: 4.7 cm/sec E/E' med: 30.5. Diastolic parameters suggest probable elevated filling pressures. Right Ventricle: The right ventricle is normal size. The right ventricular systolic function is normal. Atria: The left atrial size is normal. Right atrial size is normal. There is no Doppler evidence for an interatrial shunt. Mitral Valve: The mitral valve leaflets are moderately calcified. There is moderate to severe mitral annular calcification. The mitral papillary muscle appears thickened and/or calcified. The mitral valve chordae are thickened and/or calcified. There is moderate mitral stenosis. The mitral valve mean gradient is 5.8 mmHg. There is trace mitral regurgitation. Aortic Valve: The aortic valve is trileaflet. Aortic valve type leaflet with moderate to severe calcification. Almost immobile noncoronary cusp and some restriction of right coronary cusp. Left coronary cusp is pliable. Peak aortic velocity 2.89 m/s, mean gradient 16, calculated aortic valve area 1.3 cm square. The peak aortic velocity is 2.89 m/sec. The aortic valve mean gradient is 16 mmHg. The calculated aortic valve area is 1.3 cm2. No aortic regurgitation is present. Tricuspid Valve: The tricuspid valve is not well visualized, but is grossly normal. There is trace tricuspid regurgitation. Pulmonary artery pressures cannot be estimated because of the lack of a measurable TR jet velocity but the IVC suggests a CVP of around 3 mmHg. Pulmonic Valve: The pulmonic valve is not well visualized. There is no pulmonic valvular regurgitation. Great Vessels: The aortic root is normal size. The dimensions of the ascending aorta are normal. Mild atherosclerotic plaque(s) in the aortic arch. The IVC is of normal diameter and collapses greater than 50% with a sniff. This suggests a low right atrial pressure of 3 mm Hg. Pericardium/ Pleura There is an anterior echo-free space consistent with a fat pad. There is no pleural effusion. MMode/2D Measurements & Calculations LVIDd: 3.7 cm LVOT diam: 2.0 cm LVIDs: 2.2 cm Ao root diam: 2.7 cm FS: 41.2 % asc Aorta Diam: 3.3 cm IVSd: 1.2 cm Ao Arch Diam (Prox Trans): 2.5 cm LVPWd: 1.0 cm LV morillo. diameter/BSA (cm/m^2): 2.4 LV sys. diameter/BSA (cm/m^2): 1.4 LA A2 area: 13.9 cm2 RA long axis: 3.7 cm LA A4 area: 12.6 cm2 RA area: 9.9 cm2 LA length (vol): 4.3 cm RA vol: 22.4 ml LA vol: 34.8 ml RA : 14.9 ml/m2 LA vol index: 23.1 ml/m2 IVC diam: 0.95 cm RVD1 (basal): 3.5 cm RVD2 (mid): 2.8 cm TAPSE: 1.6 cm Doppler Measurements & Calculations Ao V2 max: 288.1 cm/sec LVOT Max Kwaku: 125.9 cm/sec Ao V2 mean: 180.1 cm/sec LV V1 max P.4 mmHg Ao max P.2 mmHg LV V1 VTI: 21.2 cm Ao mean P.2 mmHg RAYMOND(I,D): 1.6 cm2 Ao V2 VTI: 41.3 cm RAYMOND(V,D): 1.3 cm2 sev ratio: 0.51 RAYMOND indexed to BSA (cm^2/m^2): 1.1 MV E max kwaku: 142.4 cm/sec PA V2 max: 107.5 cm/sec MV A max kwaku: 147.6 cm/sec PA V2 mean: 72.8 cm/sec MV E/A: 0.96 PA mean P.4 mmHg Med Peak E' Kwaku: 4.7 cm/sec PA pr(Accel): 38.8 mmHg E/E' med: 30.5 Lat Peak E' Kwaku: 4.1 cm/sec E/E' lat: 34.4 E/e' average: 32.4 MV dec time: 0.34 sec MVA(VTI): 1.4 cm2 MV V2 mean: 113.9 cm/sec SV(LVOT): 65.4 ml MV mean P.8 mmHg MV V2 VTI: 47.0 cm Reading Physician:12:14 PM
--- NOTE | 2025-06-07 16:15 | PC.NURSE ---
Pt arrived from ED at 1325, transferred from stretcher to bed with slider board and max assist. A&Ox4 but slow to respond. VSS on RA. c/o nausea and pain to neck/L shldr, medicated per NOV. Lung sounds dim, bowel sounds present, pt able to move RUE > LUE but both present with significant weakness. Bilat LE equally weak. Heparin gtt to R FA IV running at 12 units/kg/hr. Tele placed: sinus tach. Wound noted to coccyx; photographed and mepplex placed. Pt and family oriented to room and call light. Bed in low position, call light within reach, bed alarm activated, SCDs on.
[2025-06-07 16:57] LABS: Appearance Urine UA SL CLOUDY; Bilirubin Urine UA NEGATIVE (NEGATIVE); Color Urine UA YELLOW; Glucose Urine UA TRACE g/dL (Negative); Ketones Urine UA 1+ (NEGATIVE); Leukocyte Esterase Urine UA 3+ (NEGATIVE); Nitrite Urine UA NEGATIVE (Negative); Occult Blood Urine UA TRACE-INTACT (Negative); Protein Urine UA NEGATIVE (Negative); Specific Gravity Urine UA 1.010 (1.000-1.035); Urobilinogen Urine UA 0.2 E.U./dL (0.2)
[2025-06-07 16:59] LABS: pH Urine UA 7.5 (4.5-8.0)
[2025-06-07 17:03] LABS: Culture Indicated Urine Specimen Cultured
[2025-06-07] MEDS: ACETAMINOPHEN 325 MG TABLET 650 MG PO (18:00)
[2025-06-07] MEDS: CLOPIDOGREL 75 MG TABLET PO (18:02)
--- NOTE | 2025-06-07 18:37 | PM.CN ---
History of Present Illness Consult details Date Patient Seen: 06/07/25 Time Patient Seen: 19:22 Chief complaint: N/V/D T-4 Reason for consult: NSTEMI Requesting provider: Jarad Antony Narrative: [age] old admitted the hospital with symptoms of nausea vomiting dehydration. She felt very poorly and was seen in the emergency room. I received a phone call for an incidental elevation of serum troponin. Patient denies any symptoms of chest pains shortness of breath respiratory distress heart palpitations presyncope or syncope. Patient states that she has been feeling poorly for the last few days and was not able to keep anything down. 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 Patient reported a long list of allergies. She states that she lives at home with her and son who are primary caregivers for her. Pt is KELLY-COVID 19 PCR positive. Meds Home Medications and Allergies Home Medications ?Medication ?Instructions ?Recorded ?Confirmed ?Type acetaminophen 650 mg 650 mg PO DIRECTED 07/11/19 06/07/25 History tablet,extended release (Tylenol 8 Hour) esomeprazole magnesium 40 mg 40 mg PO DAILY 06/07/25 06/07/25 History capsule,delayed release fludrocortisone 0.1 mg tablet 0.2 mg PO DAILY PRN hypotension 06/07/25 06/07/25 History insulin glargine 100 unit/mL (3 14 unit SUBCUT QAM 06/07/25 06/07/25 History mL) subcutaneous pen (Lantus Solostar U-100 Insulin) morphine 15 mg immediate release 7.5 mg PO Q6H PRN pain 06/07/25 06/07/25 History tablet ondansetron 8 mg disintegrating 8 mg PO 3XD 06/07/25 06/07/25 History tablet pregabalin 50 mg capsule 50 mg PO BID 06/07/25 06/07/25 History sodium chloride 1,000 mg soluble 1,000 mg PO BID 06/07/25 06/07/25 History tablet Allergies Allergy/AdvReac Type Severity Reaction Status Date / Time Sulfa (Sulfonamide Allergy Intermediate Rash Verified 07/11/19 14:37 Antibiotics) tamsulosin Allergy Intermediate Swelling Verified 07/11/19 14:37 of the Eye cetirizine (From ZYRTEC) Allergy Unknown Verified 07/11/19 13:09 Estrogens (ESTROGENS) Allergy Unknown Verified 07/11/19 13:09 ezetimibe (From ZETIA) Allergy Unknown Verified 07/11/19 13:09 Progestins (PROGESTINS) Allergy Unknown Verified 07/11/19 13:09 ranitidine (From ZANTAC) Allergy Unknown Verified 07/11/19 13:09 rosiglitazone (From AVANDIA) Allergy Unknown Verified 07/11/19 13:09 simvastatin (From ZOCOR) Allergy Unknown Verified 07/11/19 13:09 albuterol AdvReac Intermediate Anxiety Verified 07/11/19 14:37 meloxicam (From Mobic) AdvReac Intermediate Dizziness Verified 07/11/19 14:37 TRIPLIPIX Allergy Unknown Uncoded 07/11/19 13:09 Review of Systems Review of Systems ROS: Yes All systems reviewed with the patient and are negative except as otherwise documented Integumentary/Breasts Comments: Left sided weakness. Neurologic Comments: Left sided weakness. Patient is able to move the left arm and leg. Exam Vital Signs (past 8 hours): - 06/07/25 11:00 06/07/25 11:01 06/07/25 11:01 Temperature Pulse Rate 91 H 113 H Respiratory Rate 22 15 Blood Pressure 184/76 H Pulse Oximetry 99 100 Oxygen Delivery Method Oxygen Flow Rate 06/07/25 11:30 06/07/25 12:00 06/07/25 12:00 Temperature Pulse Rate 88 110 H Respiratory Rate 21 Blood Pressure 185/81 H Pulse Oximetry 99 92 Oxygen Delivery Method Oxygen Flow Rate 06/07/25 14:46 06/07/25 15:25 06/07/25 16:23 Temperature 97.5 F L 98.0 F Pulse Rate 105 H 80 Respiratory Rate 16 15 Blood Pressure 154/60 H 157/74 H Pulse Oximetry 97 98 Oxygen Delivery Method Room Air Oxygen Flow Rate 0 0 Oxygen Delivery Method Room Air Oxygen Flow Rate 0 Const General: cooperative and healthy appearing [facility] Head: normal to inspection Eyes General: appearance normal, both eyes and all related structures Neck Neck: normal visual inspection Carotids: bruit Other: Bilateral bruit Resp Effort & Inspection: normal respiratory effort Auscultation: clear to auscultation bilaterally Cardio Palpation: normal PMI Rate: regular rate Rhythm: regular rhythm Heart Sounds: S1 normal, S2 normal and murmur Other: Mild peaking systolic murmur Back/Spine/Pelvis Back: normal to inspection and erythema Other: Early skin changes. Pt has picture taken by her nurse. Neuro Motor: strength abnormal Objective ECG Impression: Normal sinus rhythm, PAC, Interval change in Non specific STT changes. Imaging CT scan - abdomen: My impression: Inflammatory changes along the posterior wall of the urinary bladder and urothelial enhancement extending into the proximal collecting systems, right more involved than left. No CT evidence of acute pyelonephritis. Findings are suspicious for cystitis with gas-forming organism versus instrumentation. No obstructive uropathy. Bilateral nonobstructing nephrolithiasis. Findings suggestive of ascending colitis and proctitis. This could be secondary to infection, inflammation, or may be reactive. Prominent hepatic steatosis. Bilateral pleural effusions Very small. Labs 06/07/25 09:03 06/07/25 09:03 Labs: Laboratory Results - last 24 hr 06/07/25 06/07/25 06/07/25 09:03 09:38 10:36 WBC 4.6 RBC 4.10 Hgb 13.7 Hct 39.6 MCV 96.5 MCH 33.3 MCHC 34.5 RDW 13.1 Plt Count 272 Neut % (Auto) 57.4 Lymph % (Auto) 33.7 [place] % (Auto) 8.6 Eos % (Auto) 0.0 L Baso % (Auto) 0.3 Neut # (Auto) 2600 Lymph # (Auto) 1500 [place] # (Auto) 400 Eos # (Auto) 0 Baso # (Auto) 0 PT 15.8 H INR 1.4 H APTT 51 H Sodium 133 L Potassium 3.0 L Chloride 100 Carbon Dioxide 27 BUN 13 Creatinine 0.65 Estimated GFR > 60 BUN/Creatinine Ratio 20.0 Glucose 217 H POC Whole Bld Glucose Lactate 2.2 H Calcium 8.3 L Total Bilirubin 0.8 AST 57 H ALT 17 Alkaline Phosphatase 66 Total Creatine Kinase 105 Troponin I 1.040 H* 1.160 H* NT-Pro-B Natriuret Pep 2140 H Total Protein 6.4 Albumin 3.3 L Globulin 3.1 Albumin/Globulin Ratio 1.1 Lipase 25 Urine Color Urine Appearance Urine pH Ur Specific [place] Urine Protein Urine Glucose (UA) Urine Ketones Urine Occult Blood Urine Nitrate Urine Bilirubin Urine Urobilinogen Ur Leukocyte Esterase Urine RBC Urine WBC Ur Squamous Epith Cells Urine Bacteria Ur Culture Indicated? Vol Urine Centrifuged SARS-CoV-2 (PCR) Positive H Influenza A (RT-PCR) Flu a negative Influenza B (RT-PCR) Flu b negative RSV (PCR) Negative 06/07/25 06/07/25 06/07/25 12:24 12:44 16:19 WBC RBC Hgb Hct MCV MCH MCHC RDW Plt Count Neut % (Auto) Lymph % (Auto) [place] % (Auto) Eos % (Auto) Baso % (Auto) Neut # (Auto) Lymph # (Auto) [place] # (Auto) Eos # (Auto) Baso # (Auto) PT INR APTT Sodium Potassium Chloride Carbon Dioxide BUN Creatinine Estimated GFR BUN/Creatinine Ratio Glucose POC Whole Bld Glucose 208 H Lactate 2.3 H Calcium Total Bilirubin AST ALT Alkaline Phosphatase Total Creatine Kinase Troponin I 1.200 H* NT-Pro-B Natriuret Pep Total Protein Albumin Globulin Albumin/Globulin Ratio Lipase Urine Color Urine Appearance Urine pH Ur Specific [place] Urine Protein Urine Glucose (UA) Urine Ketones Urine Occult Blood Urine Nitrate Urine Bilirubin Urine Urobilinogen Ur Leukocyte Esterase Urine RBC Urine WBC Ur Squamous Epith Cells Urine Bacteria Ur Culture Indicated? Vol Urine Centrifuged SARS-CoV-2 (PCR) Influenza A (RT-PCR) Influenza B (RT-PCR) RSV (PCR) 06/07/25 16:20 WBC RBC Hgb Hct MCV MCH MCHC RDW Plt Count Neut % (Auto) Lymph % (Auto) [place] % (Auto) Eos % (Auto) Baso % (Auto) Neut # (Auto) Lymph # (Auto) [place] # (Auto) Eos # (Auto) Baso # (Auto) PT INR APTT Sodium Potassium Chloride Carbon Dioxide BUN Creatinine Estimated GFR BUN/Creatinine Ratio Glucose POC Whole Bld Glucose Lactate Calcium Total Bilirubin AST ALT Alkaline Phosphatase Total Creatine Kinase Troponin I NT-Pro-B Natriuret Pep Total Protein Albumin Globulin Albumin/Globulin Ratio Lipase Urine Color Yellow Urine Appearance Sl cloudy Urine pH 7.5 Ur Specific [place] 1.010 Urine Protein Negative Urine Glucose (UA) Trace H Urine Ketones 1+ H Urine Occult Blood Trace-intact Urine Nitrate Negative Urine Bilirubin Negative Urine Urobilinogen 0.2 Ur Leukocyte Esterase 3+ H Urine RBC 0-1/hpf Urine WBC 5-10/hpf H Ur Squamous Epith Cells 0-1 /hpf Urine Bacteria Many (>30) H Ur Culture Indicated? Specimen cultured Vol Urine Centrifuged 10ml (spun) SARS-CoV-2 (PCR) Influenza A (RT-PCR) Influenza B (RT-PCR) RSV (PCR) [facility] Medical History Sciatica Anxiety and depression Gastric ulcer Allergic rhinitis IBS (irritable bowel syndrome) Peripheral vascular disease Insulin dependent diabetes mellitus Essential hypertension Hyperlipidemia Hiatal hernia Surgical History History of gastric surgery S/P colonoscopic polypectomy History of carpal tunnel surgery Family History Mother Diabetes mellitus Myocardial infarct Renal failure Father Diabetes mellitus Parkinson disease Social History household members: spouse, family and children Tobacco & Substance Use Smoking Status: Never smoker alcohol intake: never Assessment & Plan Assessment and plan (1) Acute non-ST elevation myocardial infarction (NSTEMI): Status: Acute (2) Hypertension: Qualifiers: Hypertension type: primary hypertension Qualified Code(s): I10 - Essential (primary) hypertension Status: Acute Plan Recommendation continue respiratory isolation Agree with heparin drip due to significantly elevated troponin levels however if there are any bleeding issues it is okay to stop. Dual antiplatelet therapy. Initiate antihypertensive agents if blood pressure remains elevated We will initiate delayed invasive strategy for her non ST elevation myocardial infarction. Once she is clinically stable I will schedule her for coronary angiography or offer her coronary CTA given her neurological status. That conversation can take place in the office. Assessment & Plan narrative: This is a 80-year-old female with a history of type 2 diabetes left-sided hemiparesis hypertension hyperlipidemia questionable cardiomyopathy admitted to the hospital with nausea vomiting and feeling poorly. She tested positive for COVID-19 by PCR. In incidental finding of elevated serum troponin levels. EKG was significant for nonspecific ST-T changes. No previous EKGs are available in the system to compare. No interval changes in EKG from 1st to 2nd set. 1. Non ST-elevation myocardial infarction: This is a 80-year-old with history of diabetes hypertension admitted with non ST elevation myocardial infarction with no associated ischemic changes on the EKG. Patient was asymptomatic from a cardiac standpoint however she had symptoms of nausea vomiting and feeling poorly. 2. COVID-19 positive. Patient is on isolation protocol. 3. Hypertension: Hold medication for now due to underlying nausea and vomiting. And concern for dehydration 4. Patient has cardiac murmur. An echocardiogram has been ordered. Time-Based Coding :: [TOTAL MINUTES] spent with patient and on the chart (including review of chart, obtaining history, exam, reviewing outside data, placing orders, documenting exam and treatment plan, and counseling patient) on [DATE].
[2025-06-07 19:02] LABS: Lactate (Lactic Acid) 1.5 mmol/L (0.7-2.1)
[2025-06-07 19:19] LABS: Troponin I 1.120 ng/mL (0.01-0.034)
[2025-06-07 20:12] LABS: PTT Partial Thromboplastin Tim 164 SECONDS (25.1-36.5)
[2025-06-07] MEDS: PREGABALIN 25 MG CAPSULE 50 MG PO (21:45)
[2025-06-07] MEDS: SODIUM CHLORIDE 1,000 MG TABLET 1000 MG PO (21:45)
[2025-06-07] MEDS: INSULIN LISPRO 100 UNIT/ML 3ML VIAL SUBCUT (21:46)
[2025-06-07] MEDS: MORPHINE IR 15 MG TABLET 7.5 MG PO (23:58)
[2025-06-08 03:00] VITALS: BP 185/74; PULSE 108; RESP 20; TEMP 37.4; O2SAT 97
--- NOTE | 2025-06-08 06:21 | PC.NURSE ---
Noc Shift Note- Called fruit and vegetable parer Dr. Go at 2345 regaurding Heparin Drip. Last PTT was elevated and held for 1 hour and decreased permprotocol. However patient has bright red blood in urine. New order received to D/C Heparin Drip. mHeparing drip stopped as ordered.
[2025-06-08] MEDS: PANTOPRAZOLE DR 40 MG TABLET PO (06:24)
[2025-06-08 06:45] LABS: Add Manual Diff / Slide Review NO; Hematocrit 37.2 % (36-46); Hemoglobin 12.8 g/dL (12.0-16.0); Lymphocytes Absolute Auto 1700 /uL (1100-4500); Mean Corpuscular HGB Conc 34.5 % (30-36); Mean Corpuscular Hemoglobin 33.4 PG (26-34); Mean Corpuscular Volume 97.0 fL (80-100); Platelet Count 256 X10^3/uL (150-400)
[2025-06-08 06:53] LABS: Hemoglobin A1C% w Est Avg Glu 7.5 % (4.0-6.0); PTT Partial Thromboplastin Tim 52 SECONDS (25.1-36.5)
[2025-06-08 06:55] LABS: Blood Urea Nitrogen 7 mg/dL (7-17); Calcium 7.5 mg/dL (8.4-10.2); Carbon Dioxide 24 mmol/L (22-32); Chloride 105 mmol/L (98-107); Estimated Glomerular Filt Rate > 60 mL/min (>60); Glucose 137 mg/dL (70-99); HEMOLYSIS < 15 (0-50); Sodium 138 mmol/L (137-145)
[2025-06-08 07:00] VITALS: BP 182/72; RESP 18; TEMP 36.4; O2SAT 97
[2025-06-08 07:00] LABS: Potassium 2.7 mmol/L (3.4-5.1)
[2025-06-08 07:22] LABS: Troponin I 0.955 ng/mL (0.01-0.034)
[2025-06-08 08:00] LABS: Magnesium 1.4 mg/dL (1.6-2.3)
[2025-06-08] MEDS: MORPHINE IR 15 MG TABLET 7.5 MG PO ×2 (08:05→18:35)
[2025-06-08] MEDS: INSULIN LISPRO 100 UNIT/ML 3ML VIAL SUBCUT ×2 (08:06→17:00)
[2025-06-08] MEDS: ONDANSETRON 4 MG/2 ML INJ IV ×2 (08:07→16:21)
[2025-06-08] MEDS: PREGABALIN 25 MG CAPSULE 50 MG PO ×2 (08:07→21:00)
[2025-06-08] MEDS: POTASSIUM CHLORIDE 20 MEQ TAB PO ×3 (08:08→13:44)
[2025-06-08] MEDS: CLOPIDOGREL 75 MG TABLET PO (08:08)
[2025-06-08] MEDS: SODIUM CHLORIDE 1,000 MG TABLET 1000 MG PO ×2 (08:08→21:00)
--- NOTE | 2025-06-08 10:40 | CM.DANOTE ---
Initial DCP Assessment Note. Review EMR and PT Interview. Met with patient at bedside to discuss discharge needs.PT is alert x 4. No acute distress. Patient lives and 3 other family members. Palliative care with [facility]. Complex PMH. will transport home upon discharge. PCP: Dr. Lion Coats Summary & Plan:?80 y/o F arrived to ED by AMB to ED c/o N/V/D and generalized weakness. Admitted to INPT Dx. NSTEMI and C-19. Plan: Cardiology consult, trend Troponin, cardiac echo. IVF, Diet as tolerated, monitor & replace electrolytes. Potassium was 2.7 today. Patient has very poor IV access. PICC to be placed today. Discharge Planning/Care Management CM Discharge Assessment Start: 06/07/25 11:57 Freq: Status: Active Protocol: Document 06/08/25 10:36 SM (Rec: 06/08/25 10:40 SM [id number]) Discharge Planning Assessment Assigned Discharge Billie Jimenez RN Cm Criminal Justice Teacher Provider Dr. Lion Coats Insurance Medicare Advance Directives? No Advance Directives No on File History Provided By Patient,Significant Other Has Patient been No admitted in last 30 days? Prior Living House Arrangements Household Members spouse,family,children Type of Relies on Others transporation used prior to admit Independent with ADL No 's Is patient alert and Yes oriented? Needs Assistance Bathing,Grooming,Meal Prep,Toileting,Managing With Medications,Home Chores / Shopping Comment and family help. Palliative care [facility] Caregiver for No Another Community Services Home Health Aid,Home Health Nurse used prior to admission: DME Already Rented / Bath Bench,Hospital Bed,Wheelchair,FWW / Walker,Cane, Owned Bedside Commode Comment has 4ww and fww Electric Bed, Not HB. Discharge Plan Home Transportation spouse Guntis Arrangement Review Status In Process Please Provide Date 06/08/25 Initial DC Assessment Was Performed Next Review Type Continued Stay Review
[2025-06-08 11:00] VITALS: BP 155/70; PULSE 85; RESP 16; TEMP 36.3; O2SAT 94
[2025-06-08] MEDS: MAGNESIUM CHLORIDE 64 MG TABLET 128 MG PO (11:50)
[2025-06-08] MEDS: ACETAMINOPHEN 325 MG TABLET 650 MG PO (11:51)
[2025-06-08 15:00] VITALS: BP 142/73; PULSE 82; RESP 18; TEMP 35.7; O2SAT 97
--- NOTE | 2025-06-08 15:16 | DI.RAD.S_ITS ---
PROCEDURE: XR CHEST FOR PICC 1V INDICATIONS: PICC placement COMPARISON: [facility], , XR CHEST 1V, 06/07/2025, 9:16. FINDINGS: PICC was placed by the intravenous therapy team from the right side. Fluoroscopic spot film demonstrates the tip of PICC projecting to the area of mid SVC. IMPRESSION: Tip of PICC projects to the area of mid SVC. Approved by: Álvaro Reeves M.D. on 06/08/2025 at 15:31
[2025-06-08 16:45] LABS: HEMOLYSIS < 15 (0-50); Potassium 3.4 mmol/L (3.4-5.1)
--- NOTE | 2025-06-08 17:47 | P.PN_ITS ---
Subjective Subjective Interval history: 80 yo female w/progressive L arm/leg weakness thought to be d/t spinal surgery, hx IBS, PAD, IDDM2, HTN, HLD, chronic orthostasis on florinef and salt tabs who was admitted on 06/07 with N/V x 3 days. Found to have NSTEMI, COVID, colitis and concern for cystitis and evidence of nonobstructing nephrolithiasis on CT. CT also showed bilat pleural effusions. Patient reports she is feeling significantly better today. She denies any chest pain, palpitations, chest tightness, shortness of breath. She has had no further vomiting. She has had intermittent nausea throughout the day. She did have significant hypokalemia this morning with potassium of 2.7. Nursing noted that she is a very difficult lab draw. They are not certain they will be able to get any additional blood draws. Nursing did request a PICC line to be placed today due to how difficult her lab draws are and need for ongoing monitoring of her potassium levels as well as potential potassium riders given her nausea. She was amenable for PICC line placement this morning. Heparin drip was discontinued last night due to develo of hematuria. Exam Vital Signs (past 8 hours): - 06/07/25 14:46 06/07/25 15:25 06/07/25 16:23 Temperature 97.5 F L 98.0 F Pulse Rate 105 H 80 Respiratory Rate 16 15 Blood Pressure 154/60 H 157/74 H Pulse Oximetry 97 98 Oxygen Delivery Method Room Air Oxygen Flow Rate 0 0 Oxygen Delivery Method Room Air Oxygen Flow Rate 0 Narrative Exam Narrative: GEN: Very pleasant elderly female, Alert and oriented x 3, NAD HEENT:NC, Face symmetric CHEST: Respiratory excursions symmetric, CTAB CV: RRR, no M/R/G ABD: Soft, NT/ND, BT present in all 4 quadrants, no organomegaly or masses EXTR: warm, well perfused, no C/C/E SKIN: warm and dry, no rash, right upper arm where PICC line was placed does have some moderate puffiness with bruising noted just under where the catheter was placed NEURO: Alert and oriented x 3, nonfocal Objective Labs 06/08/25 06:36 06/08/25 16:30 Labs: Laboratory Results - last 24 hr 06/07/25 06/07/25 06/07/25 09:03 09:38 10:36 WBC 4.6 RBC 4.10 Hgb 13.7 Hct 39.6 MCV 96.5 MCH 33.3 MCHC 34.5 RDW 13.1 Plt Count 272 Neut % (Auto) 57.4 Lymph % (Auto) 33.7 [place] % (Auto) 8.6 Eos % (Auto) 0.0 L Baso % (Auto) 0.3 Neut # (Auto) 2600 Lymph # (Auto) 1500 [place] # (Auto) 400 Eos # (Auto) 0 Baso # (Auto) 0 PT 15.8 H INR 1.4 H APTT 51 H Sodium 133 L Potassium 3.0 L Chloride 100 Carbon Dioxide 27 BUN 13 Creatinine 0.65 Estimated GFR > 60 BUN/Creatinine Ratio 20.0 Glucose 217 H POC Whole Bld Glucose Lactate 2.2 H Calcium 8.3 L Total Bilirubin 0.8 AST 57 H ALT 17 Alkaline Phosphatase 66 Total Creatine Kinase 105 Troponin I 1.040 H* 1.160 H* NT-Pro-B Natriuret Pep 2140 H Total Protein 6.4 Albumin 3.3 L Globulin 3.1 Albumin/Globulin Ratio 1.1 Lipase 25 Urine Color Urine Appearance Urine pH Ur Specific [place] Urine Protein Urine Glucose (UA) Urine Ketones Urine Occult Blood Urine Nitrate Urine Bilirubin Urine Urobilinogen Ur Leukocyte Esterase Urine RBC Urine WBC Ur Squamous Epith Cells Urine Bacteria Ur Culture Indicated? Vol Urine Centrifuged SARS-CoV-2 (PCR) Positive H Influenza A (RT-PCR) Flu a negative Influenza B (RT-PCR) Flu b negative RSV (PCR) Negative 06/07/25 06/07/25 06/07/25 12:24 12:44 16:19 WBC RBC Hgb Hct MCV MCH MCHC RDW Plt Count Neut % (Auto) Lymph % (Auto) [place] % (Auto) Eos % (Auto) Baso % (Auto) Neut # (Auto) Lymph # (Auto) [place] # (Auto) Eos # (Auto) Baso # (Auto) PT INR APTT Sodium Potassium Chloride Carbon Dioxide BUN Creatinine Estimated GFR BUN/Creatinine Ratio Glucose POC Whole Bld Glucose 208 H Lactate 2.3 H Calcium Total Bilirubin AST ALT Alkaline Phosphatase Total Creatine Kinase Troponin I 1.200 H* NT-Pro-B Natriuret Pep Total Protein Albumin Globulin Albumin/Globulin Ratio Lipase Urine Color Urine Appearance Urine pH Ur Specific [place] Urine Protein Urine Glucose (UA) Urine Ketones Urine Occult Blood Urine Nitrate Urine Bilirubin Urine Urobilinogen Ur Leukocyte Esterase Urine RBC Urine WBC Ur Squamous Epith Cells Urine Bacteria Ur Culture Indicated? Vol Urine Centrifuged SARS-CoV-2 (PCR) Influenza A (RT-PCR) Influenza B (RT-PCR) RSV (PCR) 06/07/25 06/07/25 06/07/25 16:20 18:20 19:35 WBC RBC Hgb Hct MCV MCH MCHC RDW Plt Count Neut % (Auto) Lymph % (Auto) [place] % (Auto) Eos % (Auto) Baso % (Auto) Neut # (Auto) Lymph # (Auto) [place] # (Auto) Eos # (Auto) Baso # (Auto) PT INR APTT TNP 164 H* D Sodium Potassium Chloride Carbon Dioxide BUN Creatinine Estimated GFR BUN/Creatinine Ratio Glucose POC Whole Bld Glucose Lactate 1.5 Calcium Total Bilirubin AST ALT Alkaline Phosphatase Total Creatine Kinase Troponin I 1.120 H* NT-Pro-B Natriuret Pep Total Protein Albumin Globulin Albumin/Globulin Ratio Lipase Urine Color Yellow Urine Appearance Sl cloudy Urine pH 7.5 Ur Specific [place] 1.010 Urine Protein Negative Urine Glucose (UA) Trace H Urine Ketones 1+ H Urine Occult Blood Trace-intact Urine Nitrate Negative Urine Bilirubin Negative Urine Urobilinogen 0.2 Ur Leukocyte Esterase 3+ H Urine RBC 0-1/hpf Urine WBC 5-10/hpf H Ur Squamous Epith Cells 0-1 /hpf Urine Bacteria Many (>30) H Ur Culture Indicated? Specimen cultured Vol Urine Centrifuged 10ml (spun) SARS-CoV-2 (PCR) Influenza A (RT-PCR) Influenza B (RT-PCR) RSV (PCR) [facility] Medical History Sciatica Anxiety and depression Gastric ulcer Allergic rhinitis IBS (irritable bowel syndrome) Peripheral vascular disease Insulin dependent diabetes mellitus Essential hypertension Hyperlipidemia Hiatal hernia Surgical History History of gastric surgery S/P colonoscopic polypectomy History of carpal tunnel surgery Family History Mother Diabetes mellitus Myocardial infarct Renal failure Father Diabetes mellitus Parkinson disease Social History household members: spouse, family and children Smoking Status: Never smoker alcohol intake: never Assessment & Plan Assessment & Plan narrative: 1. NSTEMI Troponin peaked and is now improving. It is down to 0.955 today. Echocardiogram was done yesterday which showed a small left ventricular cavity which was hyperdynamic. EF was estimated to be 75-80%. There is noted almost systolic blood aeration of the LV cavity. Moderate to severe mitral annular calcification. Moderate mitral stenosis. Mild to Moderate aortic stenosis with an almost immobile non coronary cusp and some restriction of the right coronary cusp. The IVC was normal diameter and collapses greater than 50% with a sniff test. Suggesting a low right atrial pressure. She did receive 2 L of IV fluids yesterday and continues on 125 cc/hour today. Anticipate her severe volume depletion has improved. She does have a history of dyslipidemia. Will send a lipid panel in the morning as well. 2. Hypokalemia Given her severe hypokalemia, she was repleted orally earlier in the day while waiting for a PICC line to be placed. Goal potassium levels above 4. 2. COVID Patient had primarily GI symptoms. No respiratory symptoms, no hypoxia. Continue droplet precautions. 3. Colitis on CT Although she continues to have nausea, her vomiting has improved. 4. IDDM2 ON Lantus 14 units SQ daily and SSI. 5. Chronic orthostasis Continue fludrocortisone as needed and salt tabs. 6. HTN BP is normotensive currently. 7. Debility She is essentially chronically bed-bound now related to complications from a previous spinal surgery. She is at baseline 8. Chronic L arm and leg weakness Stable. 9. Nonobstructing nephrolithiasis and CT findings concerning for cystitis Urine culture is positive for Gram-negative bacilli. Given her nausea vomiting and diarrhea on admission, which certainly could be secondary to UTI, as well as CT evidence of cystitis, will initiate antibiotic CODE status Full Prophy On a heparin gtt. Dispo She hopes to discharge home tomorrow. Time-Based Coding :: [TOTAL MINUTES] spent with patient and on the chart (including review of chart, obtaining history, exam, reviewing outside data, placing orders, documenting exam and treatment plan, and counseling patient) on [DATE].
--- NOTE | 2025-06-08 18:29 | P.PN_ITS ---
Subjective Subjective Interval history: 80 yo female w/progressive L arm/leg weakness thought to be d/t spinal surgery, hx IBS, PAD, IDDM2, HTN, HLD, chronic orthostasis on florinef and salt tabs who was admitted on 06/07 with N/V x 3 days. Found to have NSTEMI, COVID, colitis and concern for cystitis and evidence of nonobstructing nephrolithiasis on CT. CT also showed bilat pleural effusions. Exam Vital Signs (past 8 hours): - 06/08/25 11:00 06/08/25 15:00 Temperature 97.4 F L 96.3 F L Pulse Rate 85 82 Respiratory Rate 16 18 Blood Pressure 155/70 H 142/73 H Pulse Oximetry 94 97 Oxygen Delivery Method Room Air Oxygen Flow Rate 0 Objective Labs 06/08/25 06:36 06/08/25 16:30 Labs: Laboratory Results - last 24 hr 06/07/25 06/07/25 06/07/25 18:20 19:35 20:59 WBC RBC Hgb Hct MCV MCH MCHC RDW Plt Count Neut % (Auto) Lymph % (Auto) [place] % (Auto) Eos % (Auto) Baso % (Auto) Neut # (Auto) Lymph # (Auto) [place] # (Auto) Eos # (Auto) Baso # (Auto) APTT TNP 164 H* D Sodium Potassium Chloride Carbon Dioxide BUN Creatinine Estimated GFR BUN/Creatinine Ratio Glucose POC Whole Bld Glucose 193 H Hemoglobin A1c Lactate 1.5 Calcium Magnesium Troponin I 1.120 H* 06/08/25 06/08/25 06/08/25 06:36 07:32 11:11 WBC 4.5 RBC 3.83 L Hgb 12.8 Hct 37.2 MCV 97.0 MCH 33.4 MCHC 34.5 RDW 13.1 Plt Count 256 Neut % (Auto) 55.1 Lymph % (Auto) 37.2 [place] % (Auto) 7.1 Eos % (Auto) 0.0 L Baso % (Auto) 0.6 Neut # (Auto) 2500 Lymph # (Auto) 1700 [place] # (Auto) 300 Eos # (Auto) 0 Baso # (Auto) 0 APTT 52 H D Sodium 138 Potassium 2.7 L* Chloride 105 Carbon Dioxide 24 BUN 7 Creatinine 0.60 Estimated GFR > 60 BUN/Creatinine Ratio 11.7 Glucose 137 H POC Whole Bld Glucose 142 H 128 H Hemoglobin A1c 7.5 H Lactate Calcium 7.5 L Magnesium 1.4 L Troponin I 0.955 H* 06/08/25 06/08/25 06/08/25 16:13 16:30 16:36 WBC RBC Hgb Hct MCV MCH MCHC RDW Plt Count Neut % (Auto) Lymph % (Auto) [place] % (Auto) Eos % (Auto) Baso % (Auto) Neut # (Auto) Lymph # (Auto) [place] # (Auto) Eos # (Auto) Baso # (Auto) APTT Sodium Potassium 3.4 Chloride Carbon Dioxide BUN Creatinine Estimated GFR BUN/Creatinine Ratio Glucose POC Whole Bld Glucose 149 H 149 H Hemoglobin A1c Lactate Calcium Magnesium Troponin I [facility] Medical History Sciatica Anxiety and depression Gastric ulcer Allergic rhinitis IBS (irritable bowel syndrome) Peripheral vascular disease Insulin dependent diabetes mellitus Essential hypertension Hyperlipidemia Hiatal hernia Surgical History History of gastric surgery S/P colonoscopic polypectomy History of carpal tunnel surgery Family History Mother Diabetes mellitus Myocardial infarct Renal failure Father Diabetes mellitus Parkinson disease Social History household members: spouse, family and children Smoking Status: Never smoker alcohol intake: never Assessment & Plan Assessment & Plan narrative: 1. NSTEMI Troponin peaked and is now improving. It is down to 0.955 today. Echocardiogram was done yesterday which showed a small left ventricular cavity which was hyperdynamic. EF was estimated to be 75-80%. There is noted almost systolic blood aeration of the LV cavity. Moderate to severe mitral annular calcification. Moderate mitral stenosis. Mild to Moderate aortic stenosis with an almost immobile non coronary cusp and some restriction of the right coronary cusp. The IVC was normal diameter and collapses greater than 50% with a sniff test. Suggesting a low right atrial pressure. She did receive 2 L of IV fluids yesterday and continues on 125 cc/hour today. Anticipate her severe volume depletion has improved. She does have a history of dyslipidemia. Will send a lipid panel in the morning as well. 2. Hypokalemia Given her severe hypokalemia, she was repleted orally earlier in the day while waiting for a PICC line to be placed. Goal potassium levels above 4. 2. COVID Patient had primarily GI symptoms. No respiratory symptoms, no hypoxia. Continue droplet precautions. 3. Colitis on CT Although she continues to have nausea, her vomiting has improved. 4. IDDM2 ON Lantus 14 units SQ daily and SSI. 5. Chronic orthostasis Continue fludrocortisone as needed and salt tabs. 6. HTN BP is normotensive currently. 7. Debility She is essentially chronically bed-bound now related to complications from a previous spinal surgery. She is at baseline 8. Chronic L arm and leg weakness Stable. 9. Nonobstructing nephrolithiasis and CT findings concerning for cystitis Urine culture is positive for Gram-negative bacilli. Given her nausea vomiting and diarrhea on admission, which certainly could be secondary to UTI, as well as CT evidence of cystitis, will initiate antibiotic CODE status Full Prophy On a heparin gtt. Dispo She hopes to discharge home tomorrow. Time-Based Coding :: [TOTAL MINUTES] spent with patient and on the chart (including review of chart, obtaining history, exam, reviewing outside data, placing orders, documenting exam and treatment plan, and counseling patient) on [DATE].
[2025-06-08 19:00] VITALS: BP 174/75; PULSE 86; RESP 18; TEMP 36.2; O2SAT 97
[2025-06-08] MEDS: POTASSIUM CHLORIDE IN WATER 10 MEQ/100 ML PIGGYBACK 100 MEQ IV ×3 (19:05→23:18)
[2025-06-08] MEDS: INSULIN GLARGINE 100 UNIT/ML 3ML PEN 14 UNIT SUBCUT (21:09)
[2025-06-08 23:28] VITALS: BP 163/81; PULSE 87; RESP 18; TEMP 36.6; O2SAT 97
[2025-06-09] MEDS: POTASSIUM CHLORIDE IN WATER 10 MEQ/100 ML PIGGYBACK 100 MEQ IV ×5 (00:40→11:48)
[2025-06-09 05:00] VITALS: BP 181/72; PULSE 92; RESP 18; TEMP 36.5; O2SAT 97
[2025-06-09] MEDS: SODIUM CHLORIDE 0.9% 1,000 ML 125 ML IV (05:16)
[2025-06-09] MEDS: PANTOPRAZOLE DR 40 MG TABLET PO (05:16)
[2025-06-09 05:18] LABS: Add Manual Diff / Slide Review NO; Hematocrit 32.5 % (36-46); Hemoglobin 11.2 g/dL (12.0-16.0); Lymphocytes Absolute Auto 2900 /uL (1100-4500); Mean Corpuscular HGB Conc 34.4 % (30-36); Mean Corpuscular Hemoglobin 33.4 PG (26-34); Mean Corpuscular Volume 97.1 fL (80-100); Platelet Count 216 X10^3/uL (150-400)
[2025-06-09 05:31] LABS: Blood Urea Nitrogen 5 mg/dL (7-17); Calcium 7.4 mg/dL (8.4-10.2); Carbon Dioxide 24 mmol/L (22-32); Chloride 108 mmol/L (98-107); Estimated Glomerular Filt Rate > 60 mL/min (>60); Glucose 101 mg/dL (70-99); HEMOLYSIS < 15 (0-50); Magnesium 1.5 mg/dL (1.6-2.3); Potassium 3.7 mmol/L (3.4-5.1); Sodium 136 mmol/L (137-145)
[2025-06-09 06:05] LABS: Cholesterol 97 mg/dL (140-199); HDL Cholesterol 23 mg/dL (40-60); Triglycerides 279 mg/dL (35-150)
[2025-06-09 08:00] VITALS: BP 182/88; PULSE 116; RESP 13; TEMP 36.4; O2SAT 95
[2025-06-09] MEDS: ASPIRIN EC 81 MG TABLET PO (08:24)
[2025-06-09] MEDS: PREGABALIN 25 MG CAPSULE 50 MG PO (08:24)
[2025-06-09] MEDS: SODIUM CHLORIDE 1,000 MG TABLET 1000 MG PO (08:24)
[2025-06-09] MEDS: CLOPIDOGREL 75 MG TABLET PO (08:24)
[2025-06-09] MEDS: MAGNESIUM SULFATE 2 GM/50 ML PIGGYBACK IV (08:25)
[2025-06-09 11:07] VITALS: BP 157/70; PULSE 87; RESP 18; O2SAT 98
[2025-06-09] MEDS: INSULIN LISPRO 100 UNIT/ML 3ML VIAL SUBCUT (12:16)
--- NOTE | 2025-06-09 14:13 | CM.DPC ---
DCP Discharge Home with HH Per MD, met bedside with pt just now and plan is to d/c home with PICC in place (pt unable to get regular IV access) and MD requesting ANNE RN and pt states she did not like Sig so wanting referral sent to [facility]. Pt mostly bed bound at baseline and RN can assess after d/c if PT/OT needed. SW made [facility] referral along with completed F2F and orders. Discharge summary still pending. Plan: Patient to d/c home today via family POV and ongoing [facility] and now new [facility] referral made. ALL [place]
[2025-06-09 14:25] LABS: Magnesium 2.0 mg/dL (1.6-2.3)
--- NOTE | 2025-06-09 17:05 | PC.NURSE ---
D/c packet reviewed with pt and son. Discussed new prescriptions. Gave pt the Rx forms signed by . PIV and tele removed. Per MD, PICC line is staying in and will be managed by nurse. Pt exited via w/c with [employer] and family member to private vehicle.
--- NOTE | 2025-06-09 19:56 | P.DS_ITS ---
History of Present Illness History of Present Illness Chief complaint: N/V/D T-4 Narrative: Per H&P: Patient was a 80-year-old female with progressive weakness of her left arm and leg who is now essentially bed-bound and has been for some time at her home in [place]. She lives with her and son. This is felt to relate to a spinal surgery with incomplete recovery after. The patient has developed orthostatic hypotension in his unable to really get out of bed up to a chair because of dizziness and a chronic basis. She also has a history of cardiac murmur, this is evaluated several years ago by [facility] and said to be a functional murmur. He was no history of CAD or NV. She developed nausea and vomiting 3 days ago as well as diarrhea. She does have IBS. No fevers, chills, or URI symptoms. She came to the hospital today for that reason and was found to have elevated troponin with normal ECG consistent with NSTEMI as well as being COVID positive. Chest x-ray was clear. She was discussed with Cardiology, Dr. Go. Recommendations for standard treatment of NSTEMI with dual antiplatelet therapy and IV heparin drip as well as beta blockade and atorvastatin. I met with the patient, , and son. All questions were answered. Discharge Providers Provider Date of admission: 06/07/25 11:48 Discharge Date: 06/09/25 Primary care physician: Lion Coats MD Consults: 06/07/25 16:42 Consult to Dietitian, Adult Routine Comment: Reason For Exam: triggered by admit assessment 06/08/25 07:26 Consult After Hours PICC Line RN Routine Comment: frequent difficult lab draws, IV K riders, NSTEMI 06/09/25 14:06 Consult to Home Health Routine Comment: PICC placement, COVID, NSTEMI, Hypokalemia Reason For Exam: Set up RN for Discharge to Home Discharge provider: Lilliana Corona MD Summary Hospital Course Discharge Diagnosis: 1. NSTEMI 2. Hypokalemia, improved 3. Hypomagnesemia, repleted 4. Nonsustained asymptomatic ventricular tachycardia 5. COVID 6. Colitis on CT 7. Pansensitive E coli UTI 8. IDDM2 9. Chronic orthostasis 10. HTN 11. Debility 12. Chronic L arm and leg weakness 13. Nonobstructing nephrolithiasis Hospital Course: 80 yo female w/progressive L arm/leg weakness thought to be d/t spinal surgery, hx IBS, PAD, IDDM2, HTN, HLD, chronic orthostasis on florinef and salt tabs who was admitted on 06/07 with N/V x 3 days. Found to have NSTEMI, COVID, colitis and concern for cystitis and evidence of nonobstructing nephrolithiasis on CT. CT also showed bilat pleural effusions. Her nausea vomiting and diarrhea improved. This is likely secondary to a combination of COVID and potentially the colitis seen on her CT scan. This was self-limited and resolved. Urine culture did grow pansensitive E coli. She received 2 doses of ceftriaxone in the hospital. She was transitioned to oral Macrobid, as she and her family stated that Macrobid is the only antibiotic she can take. She will complete a total of 3 days of treatment inclusive of the 2 doses of ceftriaxone she received in the hospital. Likely as a result of her GI losses, she developed severe hypokalemia which ultimately required PICC line placement due to her difficult vascular status. This was repleted and improved. On the date of discharge, she subsequently developed hypomagnesemia and nonsustained ventricular tachycardia which was asymptomatic. Her low magnesium was treated and she had no further episodes of ventricular tachycardia. With regard to her non ST elevation NV, she will follow-up with cardiology on an outpatient basis. She will continue on dual antiplatelet therapy with aspirin and Plavix. She will have follow-up lab draw for reassessment of her electrolyte status. [facility] has been ordered for PICC line management and lab draws. If her follow-up labs are within normal limits, the PICC line can subsequently be discontinued. Patient is discharged in stable condition Status at Discharge Cognitive/behavioral status at discharge: at baseline, oriented Overall status at discharge: patient is progressing back to baseline Time Spent with Patient Time spent: Greater than 30 minutes Exam Vital Signs (past 8 hours): Oxygen Delivery Method Room Air Oxygen Flow Rate 0 Narrative Exam Narrative: GEN: Very pleasant elderly female, Alert and oriented x 3, NAD HEENT:NC, Face symmetric CHEST: Respiratory excursions symmetric, CTAB CV: RRR, no M/R/G ABD: Soft, NT/ND, BT present in all 4 quadrants, no organomegaly or masses EXTR: warm, well perfused, no C/C/E SKIN: warm and dry, no rash NEURO: Alert and oriented x 3, nonfocal Objective Labs 06/09/25 05:00 06/09/25 05:00 Labs: Laboratory Results - last 24 hr 06/08/25 06/09/25 06/09/25 20:18 05:00 07:10 WBC 5.4 RBC 3.35 L Hgb 11.2 L Hct 32.5 L MCV 97.1 MCH 33.4 MCHC 34.4 RDW 13.3 Plt Count 216 Neut % (Auto) 39.0 L Lymph % (Auto) 53.4 H [place] % (Auto) 7.0 Eos % (Auto) 0.3 L Baso % (Auto) 0.3 Neut # (Auto) 2100 Lymph # (Auto) 2900 [place] # (Auto) 400 Eos # (Auto) 0 Baso # (Auto) 0 Sodium 136 L Potassium 3.7 Chloride 108 H Carbon Dioxide 24 BUN 5 L Creatinine 0.65 Estimated GFR > 60 BUN/Creatinine Ratio 7.7 Glucose 101 H POC Whole Bld Glucose 152 H 120 H Calcium 7.4 L Magnesium 1.5 L Triglycerides 279 H Cholesterol 97 L LDL Cholesterol, Calc 18 HDL Cholesterol 23 L 06/09/25 06/09/25 06/09/25 11:25 14:06 16:46 WBC RBC Hgb Hct MCV MCH MCHC RDW Plt Count Neut % (Auto) Lymph % (Auto) [place] % (Auto) Eos % (Auto) Baso % (Auto) Neut # (Auto) Lymph # (Auto) [place] # (Auto) Eos # (Auto) Baso # (Auto) Sodium Potassium Chloride Carbon Dioxide BUN Creatinine Estimated GFR BUN/Creatinine Ratio Glucose POC Whole Bld Glucose 137 H 103 H Calcium Magnesium 2.0 Triglycerides Cholesterol LDL Cholesterol, Calc HDL Cholesterol [facility] Medical History Sciatica Anxiety and depression Gastric ulcer Allergic rhinitis IBS (irritable bowel syndrome) Peripheral vascular disease Insulin dependent diabetes mellitus Essential hypertension Hyperlipidemia Hiatal hernia Surgical History History of gastric surgery S/P colonoscopic polypectomy History of carpal tunnel surgery Family History Mother Diabetes mellitus Myocardial infarct Renal failure Father Diabetes mellitus Parkinson disease Social History household members: spouse, family and children Smoking Status: Never smoker alcohol intake: never Discharge Plan Discharge Plan Patient Disposition: Home Health Service Provider Discharge Comment: 1) You were admitted w/COVID and associated nausea, vomiting and diarrhea, which led to low potassium and magnesium. 2) You also had a small heart attack. You have been started on aspirin and clopidogrel for treatment. You should see Dr. Go in his office to discuss further evaluation. 3) You should have follow-up labs: BMP and magnesium level next week (home health to draw) through PICC line. Results can be sent to Dr. Rain and/or Palliative Care, Christina Kurtz 4) If no further labs are needed after those f/u labs, the PICC line can be discontinued 5) In the interim, routine PICC line care should be done per Home Health. Return to the ED: Increased shortness of breath/chest pain. Inability to hold down food/fluids/medications. Fevers/chills. Discharge orders & Medications Prescriptions: New clopidogrel 75 mg Tablet 75 mg PO DAILY Qty: 30 0RF aspirin 81 mg Tablet,Delayed Release (Dr/Ec) 81 mg PO DAILY Qty: 30 0RF nitrofurantoin monohyd/m-cryst [Macrobid] 100 mg capsule 100 mg PO BID Qty: 3 0RF Rx Instructions: must administer with a meal/food Continued acetaminophen [Tylenol 8 Hour] 650 mg Tablet Extended Release 650 mg PO DIRECTED fludrocortisone 0.1 mg tablet 0.2 mg PO DAILY PRN (Reason: hypotension) insulin glargine [Lantus Solostar U-100 Insulin] 100 unit/mL (3 mL) insulin pen 14 unit SUBCUT QAM morphine 15 mg tablet 7.5 mg PO Q6H PRN (Reason: pain) ondansetron 8 mg tablet,disintegrating 8 mg PO 3XD pregabalin 50 mg capsule 50 mg PO BID sodium chloride 1,000 mg tablet,soluble 1,000 mg PO BID esomeprazole magnesium 40 mg capsule,delayed release(DR/EC) 40 mg PO DAILY Follow up/Referrals: Lion Coats MD [Primary Care Provider, Family Practice] Diet/Activity/Treatments Diet: Diet as Tolerated and Carb-consistent/Diabetic Activity: As tolerated Oxygen: N/A Visit Report/Discharge Packet Instructions: DI for Heart Attack Stand Alone Forms: Patient Portal/API, Stroke Signs & Symptoms Discharge Data Primary Care Provider: Lion Coats
--- NOTE | 2025-06-17 16:17 | CM.DPC ---
DCP note phone f/u [employer] received call from Alejandro at [facility] stating that pt PICC line management not able to be completed with [facility] and [facility] requested assistance from [facility]. [employer] faxed dc summary and IV line information to [facility]
== END 2025-06-09 17:07 | disposition home health service (06) | DRG 280 ==
LOC: ED 11:25 → AC 11:48
PROVIDERS: Family Medicine; Admitting Provider Hospitalist; Emergency Provider Emergency Medicine; PCP Family Medicine; Referring Provider Emergency Medicine; Visit Provider Hospitalist
DX: I21.4 Non-ST elevation (NSTEMI) myocardial infarction (principal); U07.1 COVID-19; I47.20 Ventricular tachycardia, unspecified; J90 Pleural effusion, not elsewhere classified; N39.0 Urinary tract infection, site not specified; E87.6 Hypokalemia; K52.9 Noninfective gastroenteritis and colitis, unspecified; E11.9 Type 2 diabetes mellitus without complications; I10 Essential (primary) hypertension; R53.1 Weakness; I95.1 Orthostatic hypotension; E83.42 Hypomagnesemia; B96.20 Unspecified Escherichia coli [E. coli] as the cause of diseases classified elsewhere; N20.0 Calculus of kidney; Z79.4 Long term (current) use of insulin; Z74.01 Bed confinement status
CPT/HCPCS: 36415; 71045; 74177; 80048; 80053; 80061; 81001; 82550; 82962; 83036; 83605; 83690; 83735; 83880; 84132; 84484; 85025; 85610; 85730; 87077; 87086; 87186; 87637; 93005; 93010; 93306; 96365; 96366; 96375; 99284; 99291; J0696; J1171; J1642; J1644; J1815; J2272; J2405; J3475; Q9967